=== PATIENT | female | born 1950 | race Caucasian/White ===

== ENCOUNTER 2019-09-10 14:30 | Outpatient (CLI) | payer MEDICARE, OTHER, SELFPAY ==
--- NOTE | 2019-09-10 14:48 | US_ITS ---
WS: [id number] Abdomen ultrasound, 09/10/2019 Clinical Data: RUQ ABD PAIN Comparison: None. Findings: The pancreas shows no cyst, pseudocyst or evidence of pancreatitis. The liver shows no cysts, masses or dilated intrahepatic ducts. There is fatty infiltration. The gallbladder is absent. The common bile duct is 0.33 cm and no intraductal abnormalities are noted . The right kidney is 4.43 x 5.43 x 11.27 cm. No cysts, masses or hydronephrosis is seen. The left kidney is 4.87 x 5.48 x 11.38 cm. There is a simple upper pole cyst measuring 1.45 x 1.46 x 1.52 cm The abdominal aorta is not dilated and the inferior vena cava has normal flow. No vascular ab normalities are seen. The spleen measures 4.95 x 5.28 x 10.55 cm and there are no intrasplenic masses are capsular abnormal ities. US/US abdomen complete* [id number] Impression: 1. Absent gallbladder. 2. Negative for acute intra-abdominal abnormalities.
== END 2019-09-10 14:31 | disposition home or self-care (01) ==
LOC: RAD 14:37
PROVIDERS: Family Provider Family Medicine; PCP Family Medicine; Visit Provider Family Medicine
DX: M25.532 Pain in left wrist (principal); M79.642 Pain in left hand
CPT/HCPCS: 76700

== ENCOUNTER → 2020-03-23 09:49 | Outpatient (BNVA) | payer MEDICARE, OTHER, SELFPAY | PROVIDERS: Family Provider Family Medicine; PCP Family Medicine; Visit Provider Nurse Practitioner Women's Health | DX: Z01.411 Encounter for gynecological examination (general) (routine) with abnormal findings (principal); N90.89 Other specified noninflammatory disorders of vulva and perineum; Q52.5 Fusion of labia | CPT/HCPCS: 88175 ==

== ENCOUNTER → 2020-03-29 13:37 | Outpatient (BNVA) | payer MEDICARE, OTHER, SELFPAY | PROVIDERS: Family Provider Family Medicine; PCP Family Medicine; Visit Provider Nurse Practitioner Women's Health | DX: N90.89 Other specified noninflammatory disorders of vulva and perineum (principal) | CPT/HCPCS: 88305 ==

== ENCOUNTER 2020-04-25 08:45 | Outpatient (CLI) | payer MEDICARE, OTHER, SELFPAY ==
--- NOTE | 2020-04-25 08:56 | MM_ITS ---
WS: [id number] SCREENING DIGITAL MAMMOGRAM WITH CAD HISTORY: SCREENING COMPARISON: 10/02/2017, 04/28/2017 and 04/10/2017 Bilateral CC and MLO views submitted. Computer aided detection analyzed. Breast composition: There are scattered areas of fibroglandular density. Increasing area of network solutions architect ural distortion and density upper outer quadrant of the LEFT breast at a middle depth. There has been asymmetry in this location but now the density has also increased and it appears slightly more disto rted. No interval change in the lateral RIGHT breast. MM/[place] [id number] IMPRESSION: BI-RADS: 0-Incomplete: Need additional imaging evaluation FOLLOW UP: Need Additional Imaging LEFT breast: Spot compression views (CC and MLO). True ML. Ultrasound to follow if abnormality persists.
== END 2020-04-25 08:46 | disposition home or self-care (01) ==
LOC: RADSHAW 08:50
PROVIDERS: PCP Family Medicine; Visit Provider Family Medicine
DX: Z12.31 Encounter for screening mammogram for malignant neoplasm of breast (principal); N64.89 Other specified disorders of breast
CPT/HCPCS: 77067

== ENCOUNTER → 2020-05-11 10:09 | Outpatient (BNVA) | payer MEDICARE, OTHER, SELFPAY | PROVIDERS: PCP Family Medicine; Referring Provider Dermatology; Visit Provider Dermatology | DX: L82.1 Other seborrheic keratosis (principal); D18.01 Hemangioma of skin and subcutaneous tissue; R20.2 Paresthesia of skin; D23.9 Other benign neoplasm of skin, unspecified; D18.00 Hemangioma unspecified site | CPT/HCPCS: 99203 ==

== ENCOUNTER 2020-06-26 07:57 | Outpatient (CLI) | payer MEDICARE, OTHER, SELFPAY ==
--- NOTE | 2020-06-26 08:06 | US_ITS ---
WS: [id number] ADDITIONAL VIEWS LEFT MAMMOGRAM LEFT BREAST ULTRASOUND HISTORY: ABNORMALITY/architectural DISTORTION COMPARISON: 04/25/2020, 04/10/2017 LEFT MAMMOGRAM: Spot compression views and true ML. Asymmetry nearly completely resolves on the LEFT CC projection laterally. No abnormality seen on the lateral projections. LEFT BREAST ULTRASOUND 2-D and color Doppler imaging submitted. Ultrasound is directed to the upper outer quadrant of the LEFT breast. There is no architectural dist ortion or mass identified. There are a few benign lymph nodes. US/US breast LT limited* [id number] IMPRESSION: BI-RADS: 2-Benign FOLLOW UP: 1 Year Follow-up
== END 2020-06-26 07:58 | disposition home or self-care (01) ==
LOC: RADSHAW 08:03
PROVIDERS: PCP Family Medicine; Visit Provider Family Medicine
DX: R92.8 Other abnormal and inconclusive findings on diagnostic imaging of breast (principal)
CPT/HCPCS: 76642; 77065

== ENCOUNTER → 2020-07-19 09:39 | Outpatient (BNVA) | payer MEDICARE, OTHER, SELFPAY | PROVIDERS: PCP Family Medicine; Visit Provider Family Medicine | DX: Z20.828 Contact with and (suspected) exposure to other viral communicable diseases (principal); Z01.812 Encounter for preprocedural laboratory examination | CPT/HCPCS: 87635 ==

== ENCOUNTER 2021-01-24 10:50 | Emergency (ER) | payer MEDICARE, OTHER, SELFPAY ==
--- NOTE | 2021-01-24 10:56 | ECG_ITS ---
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 Measurements Intervals [place] Rate: 67 P: 41 ID: 154 QRS: 15 QRSD: 70 T: 53 QT: 394 QTc: 417 Interpretive Statements SINUS RHYTHM LOW QRS VOLTAGE IN PRECORDIAL LEADS [QRS DEFLECTION < 1.0 mV IN CHEST LEADS] POSSIBLE ANTERIOR MYOCARDIAL INFARCTION [30 ms Q WAVE IN V3/V4, OR R < 0.2 mV IN V4], PROBABLY OLD Compared to ECG 09/16/2017 14:18:29 Low QRS voltage now present Myocardial infarct finding now present Sinus bradycardia no longer present Electronically Signed On 01-24-2021 17:36:44 CDT by Yandel Miller M.D. [id number]
--- NOTE | 2021-01-24 10:56 | XR_ITS ---
WS: [id number] Exam: XR chest 1V portable [id number] Date/Time of Exam: 01/24/2021 10:56 AM Reason For Exam: chest pain Comparison 09/16/2017. Findings: The lungs are clear and fully expanded. Costophrenic angles are sharp. No infiltrates. Bronchovascula r relief appears normal. Cardiac silhouette is unremarkable. Bony elements are intact. XR/XR chest 1V portable [id number] IMPRESSION: Unremarkable chest radiograph.
[2021-01-24 10:59] VITALS: BP 116/80; PULSE 72; RESP 18; TEMP 36.8; O2SAT 98; BMI 33.2
[2021-01-24 12:52] LABS: Basophils % 0.7 %; Eosinophils # 0.1 10^3/uL (0.0-0.8); Hematocrit 44.1 % (37.0-47.0); Hemoglobin 14.4 g/dL (11.5-15.3); Lymphocytes # 1.7 10^3/uL (0.8-4.8); Mean Corpuscular HGB Conc 32.7 g/dL (30.0-36.0); Mean Corpuscular Hemoglobin 29.9 pg (28.0-34.0); Mean Corpuscular Volume 91.5 fL (81-99); Mean Platelet Volume 8.8 fL (7.4-10.4); Monocytes # 0.3 10^3/uL (0.2-0.9); Monocytes % 5.5 %; Neutrophils # 3.21 10^3/uL (1.8-7.7); Neutrophils % 59.4 %; Nucleated Red Blood Cells % 0 %; Platelet Count 234 10^3/cmm (130-400); Red Blood Count 4.82 10^6/uL (4.1-5.3); Red Cell Distribution Width 12.4 % (12.1-15.1); White Blood Count 5.4 10^3/uL (4.0-10.0)
[2021-01-24 12:53] VITALS: BP 111/66; PULSE 84; RESP 18; O2SAT 98
--- NOTE | 2021-01-24 12:56 | ECG_ITS ---
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 Measurements Intervals [place] Rate: 63 P: 47 VA: 157 QRS: 37 QRSD: 81 T: 57 QT: 415 QTc: 428 Interpretive Statements SINUS RHYTHM LOW QRS VOLTAGE IN PRECORDIAL LEADS [QRS DEFLECTION < 1.0 mV IN CHEST LEADS] Compared to ECG 09/16/2017 14:18:29 Low QRS voltage now present Sinus bradycardia no longer present Electronically Signed On 01-24-2021 17:45:17 CDT by Yandel Miller M.D. [id number]
--- NOTE | 2021-01-24 12:57 | CT_ITS ---
WS: [id number] CT CHEST ANGIOGRAPHY WITH REFORMATS HISTORY: chest pressure, long distance travel, risk for PE TECHNIQUE: Contiguous axial images are obtained through the chest during arterial injection of intrav enous contrast. Images are reconstructed to evaluate the pulmonary arteries. MIP imaging also reviewe d. All CT scans at [facility] use at least one of these dose optimization techniques: aut omated exposure control; mA and/or kV adjustment per patient size (includes targeted exams where dose is matched to clinical indication); or iterative reconstruction. CONTRAST: Omnipaque 350; 95 mL IV. DLP: 579.34 mGy.cm COMPARISON: 06/24/2010 No pulmonary embolism. Mild atherosclerosis aorta. Mild enlargement of the LEFT heart chambers. No LE FT atrial appendage thrombus. No pericardial or pleural effusions. No pulmonary mass or pneumonia. No mediastinal or hilar adenopathy. Moderate-sized hiatal hernia. Prior cholecystectomy. CT/CT angio chest PE protcl [id number] IMPRESSION: 1. No pulmonary embolism. 2. Mild cardiomegaly. 3. No pneumonia.
--- NOTE | 2021-01-24 12:59 | W.ED.CHESTPA ---
HPI - Chest Pain General: Chief Complaint: Chest Pain Stated Complaint: chest pressure Time Seen by Provider: 01/24/21 12:27 Source: patient Mode of arrival: ambulatory Limitations: no limitations History of Present Illness: HPI narrative: This is a pleasant 70-year-old female patient with a history of hypertension who presents to the emergency department with chest pressure that started about 1 week ago. She went camping with her in an to [place] and while she was there she developed her symptoms. Chest pain is described as a pressure sensation and is in both sides of her chest and retrosternal. No nausea, no vomiting, no diaphoresis. No headaches or dizziness. No history of coronary artery disease or prior [place] but she has a significant family history. No prior history of PE or DVT. complaint: chest heaviness Onset (ago): week(s) (1) Timing of current episode: constant Onset: during rest Pain location: substernal, left chest and right chest Severity: moderate Quality: other (pressure) Relieving factors: nothing Exacerbating factors: nothing Context: recent travel Associated symptoms: Deny abdominal pain, diaphoresis, dyspnea, fever(s), leg edema, nausea, palpitations, sense of impending doom, syncope or vomiting Treatment prior to arrival: none Risk Factors: Coronary artery disease risk factors: hypertension Review of Systems General: Reports: 10 or more systems reviewed and unremarkable except in HPI and below Const: Denies: fever(s) or diaphoresis Card: Denies: palpitations or syncope Resp: Denies: dyspnea GI: Denies: abdominal pain, nausea or vomiting [facility] ED PFSH: Medical History Asthma History of shingles HTN (hypertension), benign Labia minora agglutination Lichen sclerosus Surgical History H/O lithotripsy H/O removal of cyst Cyst removal from LEFT AXILLA cyst removal from left hand H/O tubal ligation H/O: hysterectomy (2011) LAVH, OVARIES AND CERVIX SPARED-- WOOD History of breast lump/mass excision left- benign History of cholecystectomy History of tonsillectomy Family History Father Diabetes Heart disease Hypertension Stroke Brother Diabetes Heart disease Hypertension Stroke Mother Heart disease Hypertension Uterine cancer uterus dx at 88 y/o Breast cancer dx at 62 y/o Sister Heart disease Hypertension Colon cancer dx at 52 y/o Social History Additional social history: - Tobacco use: Denies Alcohol use: Social Drug use: Denies Physical Exam Const: COMMON NORMALS: no acute distress, average body habitus, patient oriented x3, no limitations, healthy appearing, alert and well nourished HENMT: COMMON NORMALS: normocephalic, atraumatic and moist oral mucous membranes HEAD & SCALP: normocephalic and atraumatic Neck/C-Spine: COMMON NORMALS: no meningeal signs and no JVD Resp: COMMON NORMALS: normal respiratory effort, No retractions, No use of accessory muscles, clear to auscultation bilaterally and percussion normal AUSCULTATION: clear to auscultation bilaterally PERCUSSION: percussion normal Cardio: COMMON NORMALS: no JVD, regular rate, regular rhythm, S1 normal heart sound present, S2 normal heart sound present, No gallops present (Cardio), No clicks present (Cardio), No murmurs present (Cardio), No rub (Cardio) and Peripheral pulses 2+ throughout RATE: regular rate RHYTHM: regular rhythm HEART SOUNDS: S1 normal heart sound present and S2 normal heart sound present PERIPHERAL PULSES: Peripheral pulses 2+ throughout GI: COMMON NORMALS: Normal to inspection, nondistended, normoactive bowel sounds present, Soft to palpation, non-tender, No hepatosplenomegaly present, no masses and no bruits PALPATION: Yes Soft to palpation and Yes No hepatosplenomegaly present Extremity: COMMON NORMALS: normal to inspection, full ROM, capillary refill normal, no calf tenderness and no pedal edema Neuro: COMMON NORMALS: patient oriented x3 SENSORIUM/ORIENTATION: Yes alert MENINGEAL SIGNS: Yes no meningeal signs Skin: COMMON NORMALS: no rashes or lesions noted, no wounds, turgor normal, no jaundice, no petechiae and no mottling GENERAL SKIN EXAM: no rashes or lesions noted and turgor normal Course Reevaluation(s): Reevaluation #1: Discussed her lab and imaging findings with her. Unremarkable. We will discharge her home with no new orders., We will schedule an outpatient stress test as she has not had one recently. She voiced understanding and is in agreement with the plan. Time: 15:29 Vital Signs: Vital signs: Vital Signs Temperature 98.2 F 01/24/21 10:59 Pulse Rate 87 01/24/21 14:48 Respiratory Rate 18 01/24/21 14:48 Blood Pressure 142/74 01/24/21 14:48 Pulse Oximetry 98 01/24/21 14:48 MDM - Chest Pain MDM Narrative: Medical decision making narrative: 70-year-old female patient who presents to the emergency department with a 1 week history of chest pain. Evaluation in the emergency department is unremarkable. She will be discharged home and an outpatient stress test is ordered. Because she had had long distance travel she was checked for a PE with CTA was negative. Medical Records: Attestation: I reviewed the patient's medical records. Lab Data: Attestation: I reviewed the patient's lab results. Labs: Lab Results 01/24/21 01/24/21 01/24/21 Range/Units 12:14 12:14 12:14 WBC 5.4 (4.0-10.0) 10^3/ uL RBC 4.82 (4.1-5.3) 10^6/u L Hgb 14.4 (11.5-15.3) g/dL Hct 44.1 (37.0-47.0) % MCV 91.5 (81-99) fL MCH 29.9 (28.0-34.0) pg MCHC 32.7 (30.0-36.0) g/dL RDW 12.4 (12.1-15.1) % Plt Count 234 (130-400) 10^3/c mm MPV 8.8 (7.4-10.4) fL Neut % (Auto) 59.4 % Lymph % (Auto) 32.0 % Phelps % (Auto) 5.5 % Eos % (Auto) 2.0 % Baso % (Auto) 0.7 % Neut # (Auto) 3.21 (1.8-7.7) 10^3/u L Lymph # (Auto) 1.7 (0.8-4.8) 10^3/u L Phelps # (Auto) 0.3 (0.2-0.9) 10^3/u L Eos # (Auto) 0.1 (0.0-0.8) 10^3/u L Baso # (Auto) 0.0 (0.0-0.1) 10^3/u L Nucleated RBC % (a uto) 0 % Nucleated RBCs # 0.0 /100WBC Sodium 139 (136-145) mmol/L Potassium 4.0 (3.5-5.1) mmol/L Chloride 101 (98-107) mmol/L Carbon Dioxide 27 (22-29) mmol/L Anion Gap 15.0 (5-19) BUN 20 (8-23) mg/dL Creatinine 0.5 (0.5-0.9) mg/dL GFR Calculation 122.7 (90-130) mL/min Glucose 88 (65-115) mg/dL Calculated Osmolal ity 290 (285-295) mOsm/k g Calcium 9.2 (8.5-10.5) mg/dL Total Bilirubin 0.6 (0.15-1.2) mg/dL AST 16 (0-32) U/L ALT 20 (0-33) U/L Alkaline Phosphata se 105 (35-105) IU/L Creatine Kinase (26-192) U/L Troponin T Baselin e 6 (0-10) ng/L Troponin T 120 Min nez perce (0-10) ng/L Delta Troponin T (0-10) ABS# Total Protein 6.4 L (6.6-8.7) g/dL Albumin 4.6 (3.5-5.2) g/dL Globulin 1.8 (1.3-4.6) g/dL TSH (0.27-4.20) uIU/ mL 01/24/21 01/24/21 Range/Units 12:14 13:56 WBC (4.0-10.0) 10^3/ uL RBC (4.1-5.3) 10^6/u L Hgb (11.5-15.3) g/dL Hct (37.0-47.0) % MCV (81-99) fL MCH (28.0-34.0) pg MCHC (30.0-36.0) g/dL RDW (12.1-15.1) % Plt Count (130-400) 10^3/c mm MPV (7.4-10.4) fL Neut % (Auto) % Lymph % (Auto) % Phelps % (Auto) % Eos % (Auto) % Baso % (Auto) % Neut # (Auto) (1.8-7.7) 10^3/u L Lymph # (Auto) (0.8-4.8) 10^3/u L Phelps # (Auto) (0.2-0.9) 10^3/u L Eos # (Auto) (0.0-0.8) 10^3/u L Baso # (Auto) (0.0-0.1) 10^3/u L Nucleated RBC % (a uto) % Nucleated RBCs # /100WBC Sodium (136-145) mmol/L Potassium (3.5-5.1) mmol/L Chloride (98-107) mmol/L Carbon Dioxide (22-29) mmol/L Anion Gap (5-19) BUN (8-23) mg/dL Creatinine (0.5-0.9) mg/dL GFR Calculation (90-130) mL/min Glucose (65-115) mg/dL Calculated Osmolal ity (285-295) mOsm/k g Calcium (8.5-10.5) mg/dL Total Bilirubin (0.15-1.2) mg/dL AST (0-32) U/L ALT (0-33) U/L Alkaline Phosphata se (35-105) IU/L Creatine Kinase 68 (26-192) U/L Troponin T Baselin e (0-10) ng/L Troponin T 120 Min nez perce 6.14 (0-10) ng/L Delta Troponin T 0.14 (0-10) ABS# Total Protein (6.6-8.7) g/dL Albumin (3.5-5.2) g/dL Globulin (1.3-4.6) g/dL TSH 2.43 (0.27-4.20) uIU/ mL Imaging Data^: CTA Chest: Attestation: I personally reviewed and interpreted this imaging study as follows: Radiologist's impression: [employer] [address] [address]II Scan ReportSigned Patient: Megan Love #: [id number]: 1950cct#:[id number]/Sex: 70 / FADM Date: 01/24/21Loc: ERRoom/Bed:Attending Dr: Ordering Provider/Ordering MD: Cheri Ross[place] [facility] [place] Service: 01/24/21 Procedure(s): CT angio chest PE protcl [id number] Accession Number(s): [id number] Report Number: [id number] WS: [id number] CT CHEST ANGIOGRAPHY WITH REFORMATS HISTORY: chest pressure, long distance travel, risk for PE TECHNIQUE: Contiguous axial images are obtained through the chest during arterial injection of intravenous contrast. Images are reconstructed to evaluate the pulmonary arteries. MIP imaging also reviewed. All CT scans at [facility] use at least one of these dose optimization techniques: automated exposure control; mA and/or kV adjustment per patient size (includes targeted exams where dose is matched to clinical indication); or iterative reconstruction. CONTRAST: Omnipaque 350; 95 mL IV. DLP: 579.34 mGy.cm COMPARISON: 06/24/2010 No pulmonary embolism. Mild atherosclerosis aorta. Mild enlargement of the LEFT heart chambers. No LEFT atrial appendage thrombus. No pericardial or pleural effusions. No pulmonary mass or pneumonia. No mediastinal or hilar adenopathy. Moderate-sized hiatal hernia. Prior cholecystectomy. CT/CT angio chest PE protcl [id number] IMPRESSION: 1. No pulmonary embolism. 2. Mild cardiomegaly. 3. No pneumonia. Dictated By:Krysta Barrientos DOSigned By:Krysta Barrientos DOSigned Date/Time:01/24/21 1451DD/ 1433 CXR: Attestation: I personally reviewed and interpreted this imaging study as follows: Radiologist's impression: [place] [address], [place] [address]DZrw ReportSigned Patient: Megan Love #: [id number]: 1950cct#:[id number]/Sex: 70 / FADM Date: 01/24/21Loc: ERRoom/Bed:Attending Dr: Ordering Provider/Ordering MD: Wendy Linares Date of Service: 01/24/21 Procedure(s): XR chest 1V portable [id number] Accession Number(s): [id number] Report Number: [id number] WS: [id number] Exam: XR chest 1V portable [id number] Date/Time of Exam: 01/24/2021 10:56 AM Reason For Exam: chest pain Comparison 09/16/2017. Findings: The lungs are clear and fully expanded. Costophrenic angles are sharp. No infiltrates. Bronchovascular relief appears normal. Cardiac silhouette is unremarkable. Bony elements are intact. XR/XR chest 1V portable [id number] IMPRESSION: Unremarkable chest radiograph. Dictated By:Graham Ennis, CORRINEigned By:Graham Ennis, CORRINEigned Date/Time:01/24/21 1132DD/ 1131 EKG Data^: EKG 1: Attestation: I personally reviewed and interpreted this EKG as follows: EKG interpretation date: 01/24/21 EKG interpretation time: 12:49 Prior EKG tracings: not available for review Interpretation: Sinus rhythm. Heart rate 63 bpm. Normal axis. No ST changes. Discharge Plan Discharge Patient Disposition: Home Clinical Impression: Chest pain, non-cardiac Condition: Stable Prescriptions: Continued albuterol sulfate [ProAir HFA] 90 mcg/actuation HFA aerosol inhaler 1 inh INHALATION QID PRN (Reason: Shortness Of Breath) RF: 0 loratadine [Claritin] 10 mg tablet 10 mg PO DAILY PRN (Reason: Allergy Symptoms) RF: 0 Galzin 50 mg (zinc) capsule 50 mg PO DAILY RF: 0 lisinopril-hydrochlorothiazide 10-12.5 mg tablet 1 tab PO DAILY RF: 0 Vitamin D3 1 tab PO DAILY RF: 0 vitamin A 1 tab PO DAILY RF: 0 Discharge Orders: Discharge ED (Routine); Ordered 01/24/21 Ordered By: Cheri Rossi Referrals: Rohan Syed DO [Primary Care Provider] - 1-3 days Discharge Diet: Usual diet Discharge Activity: Increase activity as tolerated Patient Instructions: Noncardiac Chest Pain (ED) Activity Restrictions/Additional Instructions: Return for any new or worsening symptoms. Follow-up with your primary care provider within 3 days. You will be contacted to schedule an outpatient stress test. Continue home medications. 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
[2021-01-24 13:17] LABS: Troponin(5th) Baseline 6 ng/L (0-10)
[2021-01-24 13:19] LABS: Alanine Aminotransferase 20 U/L (0-33); Albumin Level 4.6 g/dL (3.5-5.2); Alkaline Phosphatase 105 IU/L (35-105); Aspartate Amino Transferase 16 U/L (0-32); Blood Urea Nitrogen 20 mg/dL (8-23); Calcium 9.2 mg/dL (8.5-10.5); Carbon Dioxide 27 mmol/L (22-29); Chloride 101 mmol/L (98-107); Globulin 1.8 g/dL (1.3-4.6); Glomerular Filtration Rate 122.7 mL/min (90-130); Glucose 88 mg/dL (65-115); Osmolality Calculated 290 mOsm/kg (285-295); Sodium 139 mmol/L (136-145); Total Bilirubin 0.6 mg/dL (0.15-1.2); Total Protein 6.4 g/dL (6.6-8.7)
[2021-01-24 14:05] LABS: Creatine Phosphokinase 68 U/L (26-192); Thyroid Stimulating Hormone 2.43 uIU/mL (0.27-4.20)
[2021-01-24 14:28] LABS: Troponin 5 2HR 6.14 ng/L (0-10); Troponin 5 2HR Delta 0.14 ABS# (0-10)
[2021-01-24] MEDS: iohexol 350 mg/mL 100 mL Btl IV (14:31)
[2021-01-24 14:48] VITALS: BP 142/74; PULSE 87; RESP 18; O2SAT 98
--- NOTE | 2021-01-25 15:30 | DCPLANNER ---
sow farm manager had message to schedule an outpatient stress test for patient. sow farm manager faxed signed order to centralized scheduling. sow farm manager will call for appointment information.
--- NOTE | 2021-01-31 14:31 | DCPLANNER ---
Patient has a out patient stress test scheduled for Sunday, February 21, 2021 at 10:00.
--- NOTE | 2021-03-07 07:15 | DCPLANNER ---
Patient had a stress test scheduled for 02.21.21 - patient did attend appointment.
== END 2021-01-24 15:45 | disposition home or self-care (01) ==
PROVIDERS: Physician Assistant; Emergency Provider Family Medicine; PCP Family Medicine
DX: R07.89 Other chest pain (principal); I10 Essential (primary) hypertension
CPT/HCPCS: 71045; 71275; 80053; 82550; 84443; 84484; 85025; 93005; 99284; Q9967

== ENCOUNTER 2021-02-21 07:33 | Outpatient (CLI) | payer MEDICARE, OTHER, SELFPAY ==
--- NOTE | 2021-02-21 07:43 | ECG_ITS ---
[facility] Test Date: 2021-02-21 Pat Name: Megan Love Department: Room: Gender: Female River Rat: : 1950 Requested By: Rohan Fisher Order Number: [id number] Sierra MD: JIMENEZ RUVALCABA Interpretive Statements NAME OF STUDY: LEXISCAN SESTAMIBI STRESS TEST INDICATION: Chest Pain, NOTE: Please note that this is the electrocardiogram portion of the Lexiscan/Sestamibi stress test. The perfusion scan will be documented separately. DATA: Baseline heart rate was 68 beats per minute. Baseline blood pressure was 130/85 millimeters of mercury. Target heart rate was 152. Maximum heart rate achieved was 94. which was 61 % of the predicted target heart rate. Maximum blood pressure was 130/85 millimeters of mercury. The reason for ending the test was completion of the protocol. The patient did not experience any symptoms. ELECTROCARDIOGRAM: BASELINE: Sinus rhythm. Normal axis. Otherwise, no ST-T changes suggestive of ischemia noted. No arrhythmia noted. EXERCISE: After Lexiscan injection, no ST-T changes suggestive of ischemic noted. No arrhythmia noted. 1. EKG not suggestive of ischemia 2. Lexiscan injection unremarkable. 3. Perfusion scan will be documented separately. Electronically Signed On 02-21-2021 18:41:53 CDT by JIMENEZ RUVALCABA [id number]
--- NOTE | 2021-02-21 07:44 | NMCV_ITS ---
NM xiomara perf SPECT r/s* [id number] Megan Love Age: 70 Gender: F : 1950 Exam Date: 02/21/2021 08:54 Ordering Phys: Rohan Syed DO Technologist: BERTHA Martin Exam Location: [facility] Indications: CHEST PAIN STRESS TEST Please see separate stress test report in [facility] for full findings IMAGE PROTOCOL Rest/Stress 1 Lexiscan Day Radiopharmaceutical Dose (mCi) Administration Site Administered by Rest: Tc-99m 10.7 IV BERTHA Garrison Sestamibi Stress:Tc-99m 32.9 IV BERTHA Garrison Sestamibi Rest: 21-Feb-2021 60 Discovery 630 Stress: 21-Feb-2021 30 Discovery 630 0.4mg Lexiscan. Images obtained in supine and prone position. SPECT RESULTS Technical Quality: Good Raw Data Analysis: Breast attenuation Image Corrections: No attenuation or motion correction applied Summed Stress Score: 3 Summed Rest Score: 7 Summed Difference Score: 1 PERFUSION FINDINGS SPECT images demonstrate homogeneous tracer distribution throughout the myocardium. FUNCTIONAL RESULTS (calculated via Gated SPECT) Stress Image LV EF (%): 87 Stress EDV (mL):63 TID: 1.13 Stress ESV (mL):8 Rest Image LV EF (%): 87 FUNCTIONAL FINDINGS: There is normal left ventricular systolic function. IMPRESSIONS Myocardial perfusion imaging is normal. TID ratio elevated which could be secondary left ventricle hypertrophy/subendocardial ischemia. EKG segment will be documented separately. Sonia Guerrero MD (Electronically Signed) Final Date: 21 February 2021 18:29 S
[2021-02-21 08:06] VITALS: BMI 34.1
[2021-02-21] MEDS: regadenoson 0.4 Mg/5 ml Syringe IVP (09:21)
[2021-02-21] MEDS: ondansetron 2 mg/ML SDV 2 mL 4 MG IVP (09:32)
[2021-02-21 09:41] VITALS: BP 128/75; PULSE 82
== END 2021-02-21 07:34 | disposition home or self-care (01) ==
LOC: CDL 07:39
PROVIDERS: PCP Family Medicine; Visit Provider Family Medicine
DX: R07.9 Chest pain, unspecified (principal)
CPT/HCPCS: 78452; 93017; A9500; J2405; J2785

== ENCOUNTER → 2021-04-02 08:50 | Outpatient (BNVA) | payer MEDICARE, OTHER, SELFPAY | PROVIDERS: PCP Family Medicine; Visit Provider Internal Medicine Cardiovascular Disease | DX: Z01.812 Encounter for preprocedural laboratory examination (principal); Z20.822 Contact with and (suspected) exposure to COVID-19 | CPT/HCPCS: 80048; 83880; 85025; 85610; 87635 ==

== ENCOUNTER 2021-04-05 07:46 | Day surgery (SDC) | payer MEDICARE, OTHER, SELFPAY ==
[2021-04-05] VITALS (13 sets, daily range): BP systolic 93–118; BP diastolic 59–86; PULSE 57–85; RESP 15–20; TEMP 36.4; O2SAT 93–99; BMI 34.4
--- NOTE | 2021-04-05 07:30 | XACV_ITS ---
Ht: 170 cm Wt: 100 kg BSA: 2.21 m2 Gender: Female : 1950 Any Known Allergies: Other Exam Priority: Routine Indication(s): - Elevated TID ration by MPI - Chest pain Procedure(s): Procedure Description: Diagnostic procedure Procedure Description: Left Heart Catheterization Procedure Description: Left ventriculography Procedure Description: Coronary Angiography Diagnostic Cath Status: Elective Diagnostic Findings * No disease noted in the Left Main, Left Anterior Descending, Right, or Circumflex coronary arteries. * Coronary angiography shows right dominance. Conclusions 1. No disease noted in the Left Main, Left Anterior Descending, Right, or Circumflex coronary arteries. 2. All layton are normal. 3. Hyperdynamic left ventricular systolic function. Ejection fraction of 70%. Recommendations * Continue current medical management and risk factor modification. Diagnostic RX Recommendation: medical therapy and/or counseling LV EDP: 14 mmHg Ventriculography Ejection Fraction: 70.0 % Left Ventriculography Findings: * Hyperdynamic left ventricle ejection fraction 70%. Pressures Phase:Rest AO : 128 / 23 ( 66 ) @ 8:56:00 AM 104 / 58 ( 81 ) @ 8:56:00 AM LV : 135 / -6 / 14 @ 8:55:00 AM 135 / -3 / 16 @ 8:56:00 AM Clinical Evaluation EBL: 5mL-10mL Procedural Details Procedure Consent Obtained. Admit Source: Out Patient. Pre-Procedure Time Out. Identified patient by full name and date of as verbalized by the patient/guarantor. Does the consent match the physician's order: Yes. Accurate & Complete Informed Consent: Yes. Inpatient/Outpatient History & Physical on Chart: Yes. If H&P is completed, is and addenduem needed: No; If yes, is the addendum complete: N/A. Visualize and Verify Site with Patient/Guarantor: N/A. Relevant Radiology Images available: N/A. Pre-op teaching completed and patient verbalized understanding. The risks, benefits, and alternatives of sedation and/or procedure were discussed by physician. The patient agrees to continue. Procedure started. [facility] Clinical Fraility Score: 3: Managing Well. Spinner Open End Indications: New Onset Angina. Chest Pain Symptom Assessment: Atypical Angina. Cardiovascular Instability: No. Correct patient, site and procedure confirmed by cath team. Current diagnosis: Stable angina. PERRLA. Strong, equal hand power tool repairer bilaterally. Lungs clear x 5 lobes. IV Site on Arrival: 20 gauge in the left anticubital. IV Fluids: 0.9% NaCl at KVO. 0 mL infused prior to laborer/grade check. Pre Procedural Pulses: bilateral radial was 3+. Pre Procedural Pulses: bilateral posterior tibial was 3+. Pre Procedural Pulses: bilateral dorsalis pedis was 3+. Oxygen started at 3liters/min via nasal canula. right radial was prepped with chloroprep then draped in the usual sterile fashion. right groin was prepped with chloroprep then draped in the usual sterile fashion. Physician notified. Current Diagnosis : Stable angina. Baseline sample Acquired. HR: 69 BPM. Baseline sample Acquired. HR: 70 BPM. Physician arrived. Equipment: 6F - Radial. Equipment: 5F - Radial. Cardiac Cath Pack. ACIST Manifold Kit Model BT 2000. Heparinized Saline (2 units/mL), 1000 mL bag. Physician scrubbed in. Immediate Pre-Procedure Time Out. Correct Patient: Yes; Correct Procedure: Yes; Correct Site: Yes; Correct Patient Position: Yes; Correct Supplies: Yes; Dried Flammable Prep: Yes; Blood Products Available: N/A;. Patient's family updated. Lidocaine 1% infiltrated to the right radial. Arterial access obtained. A 5 kazakh TIG catheter in over wire. Unable to cannulate with TIG catheter. Removed over the exchange wire. A 5 kazakh Ricardo catheter in over wire. Catheter seated in the LCS. Multiple views taken of left coronary artery. Catheter redirected to the RCA. Unable to cannulate the RCA. Catheter removed over the exchange wire. A CRD 5F JR4 Diagnostic Catheter was advanced over the wire and used for right coronary angiography. Catheter seated in the RCA. Multiple views taken of right coronary artery. Catheter removed over the exchange wire. A CRD 5F 145 Angled Pig Diagnostic Catheter was advanced over the wire and used for Ventriculography. EDP Sample taken: LV 135/-7,14; HR: 77 BPM; SpO2: 100%. LV gram performed in PACE @ 10 mL/second for a total of 30 mL. Patient EF: Normal. EDP Sample taken: LV 135/-4,16; HR: 77 BPM; SpO2: 100%. Pullback taken: LV Off; AO Off; Mean: , Peak to Peak: , SEP: ; HR: 78 BPM; SpO2: 100%. Catheter removed over the exchange wire. Physician review of cine films. Physician scrubbed out. A TR Band was successful obtaining hemostatsis at the Right Radial artery insertion site. TR band placed. Hemostasis obtained. Post Procedure: Pulses reassessed and unchanged. PERRLA. Strong, equal hand power tool repairer bilaterally. No VTE prophylaxis required. Medication's Wasted: Lidocaine 1% = 14 ml. Medication's Wasted: Nitro = 49.8 mg. Medication's Wasted: Heparin = 1000 units. Total IV fluids: 41 mL. Fluoro: 7:02. Contrast type used: Omnipaque 300 mgI/mL, 500 mL bottle. [id number] ml. Post-op diagnosis: Nonobstuctive CAD. Complications: NONE. Estimated blood loss: 5mL-10mL. Procedure completed. Patient transferred by wheelchair to CPRU. Vital chart was stopped. Access Site Site: Right Radial artery Sheath Size: 6 Fr Hemostasis Method: TR Band Hemostasis Success: Successful Procedure Medications Start: 9:21 AM Stop: 9:21 AM Medication: Versed Amount: 1 mg Route: I.V. Start: 9:21 AM Stop: 9:21 AM Medication: Fentanyl Amount: 50 mcg Route: I.V. Start: 9:30 AM Stop: 9:30 AM Medication: Versed Amount: 1 mg Route: I.V. Start: 9:30 AM Stop: 9:30 AM Medication: Fentanyl Amount: 50 mcg Route: I.V. Start: 9:34 AM Stop: 9:34 AM Medication: Versed Amount: 1 mg Route: I.V. Start: 9:39 AM Stop: 9:39 AM Medication: Heparin Amount: 5000 units Route: I.V. Start: 9:36 AM Stop: 9:36 AM Medication: Nitrogylcerin Amount: 200 mcg Route: I.A. Start: 9:40 AM Stop: 9:40 AM Medication: Versed Amount: 1 mg Route: I.V. I, the attending physician, have reviewed and verified all procedure medications. Yes, all medications given per verbal order History/Risk Factors Hypertension: Yes Dyslipidemia: No Peripheral Arterial Disease (PAD): No Myocardial Infarction (VT): No Obesity: Yes Renal Disease: No Tobacco Use: Never Prior Interventions PCI: No CABG: No Valve Surgery: No Report Signatures Finalized by Sonia Guerrero MD on 04/18/2021 09:49 PM
[2021-04-05] MEDS: diphenhydrAMINE 50 mg Capsule PO (08:30)
--- NOTE | 2021-04-05 09:27 | W.PM.OPSUD ---
Surgery/Procedure H&P Update DATE OF PROCEDURE: April 05, 2021 DATE H&P PERFORMED: 03/14/21 H&P UPDATE INFORMATION: I have reviewed H&P completed within last 30 days, I have examined patient prior to procedure and No changes to prior documentation PREOP DIAGNOSIS: Angina PLANNED PROCEDURE: Operation Date: 04/05/21 08:30 Proposed Procedures p Cardiac Catheterization(Left) - Sonia Guerrero MD PATIENT REASSESSED PRIOR TO SEDATION, WITH NO CHANGE NOTED: Yes PHYSICAL EXAM: alert, oriented x 3 and clear to auscultation bilaterally AIRWAY EVAL/ANESTHESIA PLAN: ASA II, Risks, benefits & alternatives of sedation and/or procedure discussed and Patient agrees to continue as planned
--- NOTE | 2021-04-05 10:15 | PC.NURSE ---
recovery received pt from laborer post diangostic [facility]. pt alert and oriented x3. complains of only numbness in right thumb, no pain. tr band in place on right wrist with no bleeding or hematoma noted. pt educated on restriction of right wrist and has verbalized understanding. pt placed on heart monitor and will be monitored per protocol. cardiac diet placed and dietary has been called to confirm order.
== END 2021-04-05 13:15 | disposition home or self-care (01) ==
PROVIDERS: PCP Family Medicine; Visit Provider Internal Medicine Cardiovascular Disease
DX: R07.89 Other chest pain (principal); I10 Essential (primary) hypertension; Z82.49 Family history of ischemic heart disease and other diseases of the circulatory system; J45.909 Unspecified asthma, uncomplicated; Z83.3 Family history of diabetes mellitus; Z82.3 Family history of stroke
CPT/HCPCS: 36415; 93452; C1769; C1887; C1894; J1644; J2250; J3010; J3490; J7030; Q0163; Q9967

== ENCOUNTER 2021-09-07 08:07 | Outpatient (CLI) | payer MEDICARE, OTHER, SELFPAY ==
[2021-09-07 08:23] VITALS: BP 134/93; PULSE 90; RESP 16; TEMP 36.8; O2SAT 95
[2021-09-07 09:00] VITALS: BP 152/89; PULSE 91; RESP 16; TEMP 36.6; O2SAT 92
[2021-09-07 10:00] VITALS: BP 152/89; PULSE 91; RESP 16; TEMP 36.1; O2SAT 93
--- NOTE | 2021-09-07 13:52 | PC.NURSE ---
VITALS CHARTED BY CHICHO KONG RN. CARE PROVIDED BY LIZ DUPREE AND JACOBO MCCABE.
== END 2021-09-07 08:08 | disposition home or self-care (01) ==
LOC: OPS 08:11
PROVIDERS: PCP Family Medicine; Visit Provider Family Medicine
DX: U07.1 COVID-19 (principal)
CPT/HCPCS: 96365

== ENCOUNTER → 2022-02-26 11:22 | Outpatient (BNVA) | payer MEDICARE, OTHER, SELFPAY | PROVIDERS: PCP Family Medicine; Visit Provider Family Medicine | DX: G47.33 Obstructive sleep apnea (adult) (pediatric) (principal); R53.83 Other fatigue; E66.9 Obesity, unspecified; Z92.29 Personal history of other drug therapy; E78.1 Pure hyperglyceridemia; R35.0 Frequency of micturition | CPT/HCPCS: 80053; 80061; 81000; 82607; 83036; 84443; 85025; 87086 ==

== ENCOUNTER 2022-03-18 09:30 | Outpatient (CLI) | payer MEDICARE, OTHER, SELFPAY | END 2022-03-18 09:31 | disposition home or self-care (01) | LOC: SLEEP 03-19 12:28 | PROVIDERS: PCP Family Medicine; Visit Provider Family Medicine | DX: G47.33 Obstructive sleep apnea (adult) (pediatric) (principal) | CPT/HCPCS: G0399 ==

== ENCOUNTER 2022-03-20 08:11 | Emergency (ER) | payer MEDICARE, OTHER, SELFPAY ==
[2022-03-20 08:36] VITALS: BP 133/89; PULSE 94; RESP 18; TEMP 37.7; O2SAT 94; BMI 32.1
--- NOTE | 2022-03-20 08:48 | CT_ITS ---
WS: [id number] CT ABDOMEN PELVIS TECHNIQUE: Contrast-enhanced CT of the abdomen and pelvis with coronal and sagittal reformatted image s. CLINICAL INFORMATION: abd pain COMPARISON: CT abdomen pelvis June 2010 DLP: 1445.[address] scans at [facility] use at least one of these dose optimization techniques: automated e xposure control; mA and/or kV adjustment per patient size (includes targeted exams where dose is matc hed to clinical indication); or iterative reconstruction. FINDINGS: Lung bases are well aerated. Mild diffuse fatty infiltration of the liver. Normal portal vein and splenic vein. Normal spleen. A f ew incidental hepatic cysts. Cholecystectomy. Small esophageal hiatal hernia. Adrenal glands are norm al. Normal renal parenchymal enhancement. No hydronephrosis. Incidental renal cysts. Normal pancreas. Celiac and SMA are patent. Normal caliber abdominal aorta. Normal sigmoid colon. Colon is decompressed. Normal appendix in the RIGHT lower quadrant. No evidence of acute appendicitis. No evidence of small or large bowel obstruction. No free fluid in the abdomen or pelvis. CT/CT abdomen pelvis w con* [id number] IMPRESSION: 1. No acute findings in the abdomen or pelvis. 2. Prior cholecystectomy. 3. Mild diffuse fatty infiltration liver. 4. A few incidental hepatic cysts. Incidental renal cysts. 5. Normal appendix. 6. Small esophageal hiatal hernia
--- NOTE | 2022-03-20 08:50 | ECG_ITS ---
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 Measurements Intervals [place] Rate: 81 P: 25 SC: 150 QRS: -24 QRSD: 80 T: 62 QT: 367 QTc: 428 Interpretive Statements SINUS RHYTHM POSSIBLE LEFT ATRIAL ENLARGEMENT [-0.1mV P-WAVE IN V1/V2] LOW QRS VOLTAGE IN PRECORDIAL LEADS [QRS DEFLECTION < 1.0 mV IN CHEST LEADS] POSSIBLE ANTERIOR MYOCARDIAL INFARCTION , PROBABLY OLD [30 ms Q WAVE IN V3/V4, OR R < 0.2 mV IN V4] Compared to ECG 01/24/2021 12:49:37 Myocardial infarct finding now present Electronically Signed On 03-20-2022 16:29:23 CDT by Yandel Miller M.D. [id number]
[2022-03-20] MEDS: ondansetron 2 mg/ML SDV 2 mL 4 MG IVP (09:14)
[2022-03-20 09:15] VITALS: RESP 18; O2SAT 93
[2022-03-20] MEDS: morphine 4 mg/mL SDV 1 mL IVP (09:15)
[2022-03-20 09:20] LABS: Basophils % 0.8 %; Hematocrit 45.2 % (37.0-47.0); Hemoglobin 15.3 g/dL (11.5-15.3); Lymphocytes # 0.4 10^3/uL (0.8-4.8); Lymphocytes % 10.6 %; Mean Corpuscular HGB Conc 33.8 g/dL (30.0-36.0); Mean Corpuscular Hemoglobin 29.9 pg (28.0-34.0); Mean Corpuscular Volume 88.3 fl (81-99); Mean Platelet Volume 8.6 fL (7.4-10.4); Monocytes # 0.2 10^3/uL (0.2-0.9); Monocytes % 5.9 %; Neutrophils % 81.3 %; Nucleated Red Blood Cells % 0 %; Platelet Count 100 10^3/cmm (130-400); Red Blood Count 5.12 10^6/uL (4.1-5.3); Red Cell Distribution Width 12.6 % (12.1-15.1); White Blood Count 3.6 10^3/uL (4.0-10.0)
[2022-03-20] MEDS: sodium chloride 0.9% 1,000 ML 999 ML IV (09:23)
--- NOTE | 2022-03-20 09:23 | ED_ITS ---
HPI - Abdominal Pain General: Chief Complaint: Abdominal Pain Stated Complaint: FEVER/ NAUSEA/ ABDOMINAL BACK PAIN Time Seen by Provider: 03/20/22 08:12 Source: patient Mode of arrival: EMS Limitations: no limitations History of Present Illness: 71-year-old female presents emergency room with complaints of headache back pain abdominal pain for the last 3 days. She has had a low-grade subjective fever.'s been very nauseous but not actually vomited no diarrhea. She has had some cough as well cough is been nonproductive no chest pain. No dysuria urgency or frequency no hematochezia or melena no he maturia. Abdominal pain is diffuse she is unable to localize it. It does seem to radiate into her back. MD elicited complaint: abdominal pain Onset (ago): day(s) (3) Pain Consistency: constant Location: Diffuse Severity: moderate Quality: cramping Radiation: back Exacerbating factors: other (Palpation) Relieving factors: nothing Associated Symptoms: Reports GI cramping, dyspepsia, nausea and poor appetite; Denies anorexia, belching, bloating, change in bowel habits, change in stool character, chills, coffee ground emesis, constipation, diarrhea, dysuria, excessive flatus, fever(s), heartburn, hematochezia, hematuria, hematemesis, fecal incontinence, loose stools, melena, syncope and vomiting Review of Systems Const: Denies: fever(s), chills, fatigue or malaise ENMT: Denies: throat pain, ear or mastoid pain, nasal discharge or nasal congestion Card: Denies: chest pain, palpitations, irregular heart rhythm, edema or syncope Resp: Denies: dyspnea, productive cough or non-productive cough GI: Reports: abdominal pain, nausea and GI cramping; Denies: vomiting, hematemesis, coffee ground emesis, heartburn, diarrhea, constipation, bloating, belching, excessive flatus, fecal incontinence, change in bowel habits, change in stool character, hematochezia or melena : Denies: flank pain, difficulty voiding, dysuria, urinary frequency, urinary urgency or hematuria Musc: Denies: neck pain or back pain Skin/Breast: Denies: rash or pruritus Neuro: Reports: headache(s) PFSH ED PFSH: Medical History Asthma Family history of ischemic heart disease and other diseases of the circulatory system History of shingles HTN (hypertension), benign Labia minora agglutination Lichen sclerosus No pertinent past medical history neghx: dm,thyroid,dvt/pe PCP: Dr. De La Torre Urgency incontinence Surgical History H/O lithotripsy H/O removal of cyst Cyst removal from LEFT AXILLA cyst removal from left hand H/O tubal ligation H/O: hysterectomy (2011) LAVH, OVARIES AND CERVIX SPARED-- WOOD History of breast lump/mass excision left- benign History of cholecystectomy History of tonsillectomy Family History Father Diabetes Heart disease Hypertension Stroke Brother Diabetes Heart disease Hypertension Stroke Mother Heart disease Hypertension Uterine cancer uterus dx at 88 y/o Breast cancer dx at 62 y/o Sister Heart disease Hypertension Colon cancer dx at 52 y/o Physical Exam Const: COMMON NORMALS: no acute distress GENERAL APPEARANCE: cooperative and comfortable ORIENTATION/CONSCIOUSNESS: Yes awake, Yes oriented to person, Yes oriented to place and Yes oriented to time HENMT: COMMON NORMALS: normocephalic, atraumatic and hearing grossly normal bilaterally HEAD & SCALP: normocephalic and atraumatic Neck/C-Spine: COMMON NORMALS: no JVD Resp: COMMON NORMALS: normal respiratory effort, No retractions, No use of accessory muscles and clear to auscultation bilaterally AUSCULTATION: clear to auscultation bilaterally Cardio: COMMON NORMALS: no JVD, regular rate, regular rhythm and No murmurs present (Cardio) RATE: regular rate RHYTHM: regular rhythm GI: COMMON NORMALS: No hepatosplenomegaly present AUSCULTATION: Yes normoactive bowel sounds PALPATION: Yes Tenderness to palpation present (GI) (Diffuse tenderness), No Guarding due to palpation present (GI) and Yes No hepatosplenomegaly present Extremity: COMMON NORMALS: normal to inspection, capillary refill normal, no clubbing, cyanosis or edema, no calf tenderness and no pedal edema Neuro: SENSORIUM/ORIENTATION: Yes oriented to person, Yes oriented to place and Yes oriented to time Skin: COMMON NORMALS: no rashes or lesions noted GENERAL SKIN EXAM: no rashes or lesions noted Course Vital Signs: Vital signs: Vital Signs Temperature 99.9 F H 03/20/22 08:36 Pulse Rate 73 03/20/22 12:59 Respiratory Rate 18 03/20/22 12:59 Blood Pressure 106/61 03/20/22 12:59 Pulse Oximetry 94 03/20/22 12:59 MDM - Abdominal Pain Medical Decision Making Labs and imaging are reviewed. No specific abnormalities on his CT appendix is normal is a few incidental hepatic cyst but otherwise unremarkable. No other findings we will check her for COVID. She is mildly hyponatremic but only minimally so. Not enough to account for her current symptoms. Push fluids. Suspect she may either have COVID or some other viral prodrome. Medical Records I reviewed the patient's medical records. Lab Data I reviewed the patient's lab results. : 03/20/22 09:02 03/20/22 09:02 Labs/Radiology: Radiology Impressions Abdomen/Pelvis CT 03/20/22 08:48 IMPRESSION: 1. No acute findings in the abdomen or pelvis. 2. Prior cholecystectomy. 3. Mild diffuse fatty infiltration liver. 4. A few incidental hepatic cysts. Incidental renal cysts. 5. Normal appendix. 6. Small esophageal hiatal hernia Laboratory Results WBC 3.6 10^3/uL (4.0-10.0) L 03/20/22 09:02 RBC 5.12 10^6/uL (4.1-5.3) 03/20/22 09:02 Hgb 15.3 g/dL (11.5-15.3) 03/20/22 09:02 Hct 45.2 % (37.0-47.0) 03/20/22 09:02 MCV 88.3 fl (81-99) 03/20/22 09:02 MCH 29.9 pg (28.0-34.0) 03/20/22 09:02 MCHC 33.8 g/dL (30.0-36.0) 03/20/22 09:02 RDW 12.6 % (12.1-15.1) 03/20/22 09:02 Plt Count 100 10^3/cmm (130-400) L 03/20/22 09:02 MPV 8.6 fL (7.4-10.4) 03/20/22 09:02 Neut % (Auto) 81.3 % 03/20/22 09:02 Lymph % (Auto) 10.6 % 03/20/22 09:02 [place] % (Auto) 5.9 % 03/20/22 09:02 Eos % (Auto) 0.0 % 03/20/22 09:02 Baso % (Auto) 0.8 % 03/20/22 09:02 Neut # (Auto) 2.90 10^3/uL (1.8-7.7) 03/20/22 09:02 Lymph # (Auto) 0.4 10^3/uL (0.8-4.8) L 03/20/22 09:02 [place] # (Auto) 0.2 10^3/uL (0.2-0.9) 03/20/22 09:02 Eos # (Auto) 0.0 10^3/uL (0.0-0.8) 03/20/22 09:02 Baso # (Auto) 0.0 10^3/uL (0.0-0.1) 03/20/22 09:02 Nucleated RBC % (auto) 0 % 03/20/22 09:02 Nucleated RBCs # 0.0 /100WBC 03/20/22 09:02 Sodium 129 mmol/L (136-145) L 03/20/22 09:02 Potassium 4.0 mmol/L (3.5-5.1) 03/20/22 09:02 Chloride 95 mmol/L (98-107) L 03/20/22 09:02 Carbon Dioxide 25 mmol/L (22-29) 03/20/22 09:02 Anion Gap 13.0 (5-19) 03/20/22 09:02 BUN 13 mg/dL (8-23) 03/20/22 09:02 Creatinine 0.8 mg/dL (0.5-0.9) 03/20/22 09:02 GFR Calculation 71.1 mL/min (90-130) L 03/20/22 09:02 Glucose 119 mg/dL (65-115) H 03/20/22 09:02 Calculated Osmolality 269 mOsm/kg (285-295) L 03/20/22 09:02 Lactic Acid 1.0 mmol/L (0.5-2.2) 03/20/22 09:02 Calcium 9.2 mg/dL (8.5-10.5) 03/20/22 09:02 Total Bilirubin 0.7 mg/dL (0.15-1.2) 03/20/22 09:02 AST 42 U/L (0-32) H 03/20/22 09:02 ALT 37 U/L (0-33) H 03/20/22 09:02 Alkaline Phosphatase 113 IU/L (35-105) H 03/20/22 09:02 Creatine Kinase 67 U/L (26-192) 03/20/22 09:02 Total Protein 6.6 g/dL (6.6-8.7) 03/20/22 09:02 Albumin 4.0 g/dL (3.5-5.2) 03/20/22 09:02 Globulin 2.6 g/dL (1.3-4.6) 03/20/22 09:02 Lipase 24 U/L (13-60) 03/20/22 09:02 Urine Color Yellow (Yellow) 03/20/22 09:55 Urine Appearance Clear (CLEAR) 03/20/22 09:55 Urine pH 6.5 (5-7) 03/20/22 09:55 Ur Specific Sigurd 1.010 (1.005-1.030) 03/20/22 09:55 Urine Protein Neg (Negative) 03/20/22 09:55 Urine Glucose (UA) Norm (Normal) 03/20/22 09:55 Urine Ketones Negative (Negative) 03/20/22 09:55 Urine Blood Neg (Negative) 03/20/22 09:55 Urine Nitrate Negative (Negative) 03/20/22 09:55 Urine Bilirubin Neg (Negative) 03/20/22 09:55 Urine Urobilinogen 4 mg/dL (Negative) H 03/20/22 09:55 Ur Leukocyte Esterase 1+ (Negative) H 03/20/22 09:55 Urine RBC 0-4 /hpf (0-2) H 03/20/22 09:55 Urine WBC 10-15 /hpf (0-5) H 03/20/22 09:55 Ur Squamous Epith Cells 10-15 /hpf (0-5) H 03/20/22 09:55 Amorphous Sediment Not Reportable 03/20/22 09:55 Urine Bacteria None /hpf (NONE) 03/20/22 09:55 Coronavirus 229E (PCR) Cancelled 03/20/22 11:30 SARS-CoV-2 (PCR) Cancelled 03/20/22 11:30 SARS-CoV-2 RNA (RT-PCR) Not detected (NOT DETECTED) 03/20/22 11:30 Discharge Plan Discharge Patient Disposition: Home Clinical Impression: Viral infection, Gastroenteritis Condition: Stable Prescriptions: New promethazine 25 mg tablet 25 mg PO Q6H PRN (Reason: nausea and vomiting) Qty: 20 0RF No Action albuterol sulfate [ProAir HFA] 90 mcg/actuation HFA aerosol inhaler 1 inh INHALATION QID PRN (Reason: Shortness Of Breath) 0RF Galzin 25 mg (zinc) capsule 25 mg PO DAILY 0RF vitamin B complex [B Complex-Vitamin B12] Tablet 1 tab PO DAILY 0RF acyclovir 800 mg tablet 800 mg PO DAILY PRN0RF hydrochlorothiazide 12.5 mg tablet 12.5 mg PO DAILY PRN (Reason: edema) Qty: 30 2RF clobetasol 0.05 % ointment 1 applic topical BID PRN (Reason: lichen sclerosis ) Qty: 30 1RF Rx Instructions: USE DIRECTED lisinopril-hydrochlorothiazide 10-12.5 mg tablet 1 tab PO DAILY 0RF Vitamin D3 1 tab PO DAILY 0RF cephalexin 500 mg capsule 500 mg PO QID 7 Days Qty: 28 0RF Reglan 10 mg tablet 10 mg PO Q6H PRN (Reason: nausea and vomiting) Qty: 20 0RF Discharge Orders: Discharge ED (Routine); Ordered 03/20/22 Ordered By: Terrell Cardona Referrals: Rohan Syed DO [Primary Care Provider] - Discharge Diet: Clear Liquid Discharge Activity: Increase activity as tolerated Patient Instructions: Opioid Safety Activity Restrictions/Additional Instructions: Clear liquid diet for 24 to 48 hours and advance as tolerated. Use promethazine as needed symptoms worsen or change return. Coding Level of Care Code ED Electrical Engineering Professor for Héctor Fwmarcos Exam Comprehensive
[2022-03-20 09:53] LABS: Alanine Aminotransferase 37 U/L (0-33); Alkaline Phosphatase 113 IU/L (35-105); Aspartate Amino Transferase 42 U/L (0-32); Blood Urea Nitrogen 13 mg/dL (8-23); Calcium 9.2 mg/dL (8.5-10.5); Carbon Dioxide 25 mmol/L (22-29); Chloride 95 mmol/L (98-107); Creatine Phosphokinase 67 U/L (26-192); Globulin 2.6 g/dL (1.3-4.6); Glomerular Filtration Rate 71.1 mL/min (90-130); Glucose 119 mg/dL (65-115); Lipase 24 U/L (13-60); Osmolality Calculated 269 mOsm/kg (285-295); Sodium 129 mmol/L (136-145); Total Bilirubin 0.7 mg/dL (0.15-1.2); Total Protein 6.6 g/dL (6.6-8.7)
[2022-03-20] MEDS: iohexol 300 mg/mL 100 mL Btl IV (10:04)
[2022-03-20 10:17] LABS: Add Urine Microscopic? YES; Bilirubin Urine Neg (Negative); Blood Urine Neg (Negative); Glucose Urine UA Norm (Normal); Ketones Urine Negative (Negative); Leukocyte Esterase Urine 1+ (Negative); Nitrate Urine Negative (Negative); Protein Urine Neg (Negative); RBC Urine 0-4 /hpf (0-2); Urine Appearance Clear (CLEAR); Urine Color Yellow (Yellow); Urobilinogen Urine 4 mg/dL (Negative); pH Urine 6.5 (5-7)
[2022-03-20 10:18] LABS: Add Urine Culture? No
[2022-03-20] MEDS: promethazine 25 mg/mL SDV 1 mL IM (11:20)
[2022-03-20] MEDS: ketorolac 30 mg/mL INJ 15 MG IVP (11:21)
[2022-03-20 11:46] VITALS: BP 107/59; PULSE 76; O2SAT 92
[2022-03-20 12:58] VITALS: BP 106/61; PULSE 73; O2SAT 94
[2022-03-20 12:59] VITALS: BP 106/61; PULSE 73; RESP 18; O2SAT 94
[2022-03-21 13:58] LABS: Quest SARS-CoV-2 RNA NOT DETECTED (NOT DETECTED)
== END 2022-03-20 13:01 | disposition home or self-care (01) ==
PROVIDERS: Emergency Provider Family Medicine; PCP Family Medicine
DX: K52.9 Noninfective gastroenteritis and colitis, unspecified (principal); B34.9 Viral infection, unspecified; I10 Essential (primary) hypertension; Z20.822 Contact with and (suspected) exposure to COVID-19
CPT/HCPCS: 36415; 74177; 80053; 81001; 82550; 83605; 83690; 85025; 87040; 87635; 93005; 96372; 96374; 96375; 99285; J1885; J2270; J2405; J2550; J7030; Q9967

== ENCOUNTER 2022-03-25 19:46 | Emergency (ER) | payer MEDICARE, OTHER, SELFPAY ==
--- NOTE | 2022-03-25 20:06 | CTR_ITS ---
PROCEDURE INFORMATION: Exam: CTA Head With Contrast, Arteries Exam date and time: 03/25/2022 9:22 PM Age: 71 years old Clinical indication: Pain; Headache; Additional info: REYNOLDS TECHNIQUE: Imaging protocol: Computed tomographic angiography of the head with contrast. 3D rendering (Not supervised by radiologist): MIP and/or 3D reconstructed images were created by the technologist. Radiation optimization: All CT scans at this facility use at least one of these dose optimization techniques: automated exposure control; mA and/or kV adjustment per patient size (includes targeted exams where dose is matched to clinical indication); or iterative reconstruction. Contrast material: OMNI 350; Contrast volume: 95 ml; Contrast route: INTRAVENOUS (IV); COMPARISON: 1. CT head wo con* [id number] 2022-03-25 21:[address] head wo con* [id number] 2017-01-27 10:[address] angio chest PE protcl [id number] 2021-01-24 14:25 RADIATION DOSE METRICS: Total DLP (mGy-cm): 437.41 FINDINGS: ANTERIOR CIRCULATION: Right internal carotid artery: Unremarkable. Intracranial segment is patent with no significant stenosis. No aneurysm. Right middle cerebral artery: Unremarkable. No occlusion or significant stenosis. No aneurysm. Right anterior cerebral artery: Unremarkable. No occlusion or significant stenosis. No aneurysm. Left internal carotid artery: Unremarkable. Intracranial segment is patent with no significant stenosis. No aneurysm. Left middle cerebral artery: Unremarkable. No occlusion or significant stenosis. No aneurysm. Left anterior cerebral artery: Unremarkable. No occlusion or significant stenosis. No aneurysm. POSTERIOR CIRCULATION: Right vertebral artery: Unremarkable. No occlusion or significant stenosis. No aneurysm. Left vertebral artery: Unremarkable. No occlusion or significant stenosis. No aneurysm. Basilar artery: Unremarkable. No occlusion or significant stenosis. No aneurysm. Right posterior cerebral artery: Unremarkable. No occlusion or significant stenosis. No aneurysm. Left posterior cerebral artery: Unremarkable. No occlusion or significant stenosis. No aneurysm. Brain: No definite mass, mass effect, or midline shift. Cerebral ventricles: No ventriculomegaly. Bones/joints: Unremarkable. No acute fracture. Soft tissues: Unremarkable. PROCEDURE INFORMATION: Exam: CTA Neck With Contrast Exam date and time: 03/25/2022 9:22 PM Age: 71 years old Clinical indication: Pain; Headache; Additional info: REYNOLDS TECHNIQUE: Imaging protocol: Computed tomographic angiography of the neck with contrast. 3D rendering (Not supervised by radiologist): MIP and/or 3D reconstructed images were created by the technologist. Radiation optimization: All CT scans at this facility use at least one of these dose optimization techniques: automated exposure control; mA and/or kV adjustment per patient size (includes targeted exams where dose is matched to clinical indication); or iterative reconstruction. Contrast material: OMNI 350; Contrast volume: 95 ml; Contrast route: INTRAVENOUS (IV); COMPARISON: 1. CT head wo con* [id number] 2022-03-25 21:[address] head wo con* [id number] 2017-01-27 10:[address] angio chest PE protcl [id number] 2021-01-24 14:25 RADIATION DOSE METRICS: Total DLP (mGy-cm): 437.41 FINDINGS: Right common carotid artery: No stenosis. No dissection or occlusion. Right internal carotid artery: No stenosis of the extracranial segment. No dissection or occlusion. Right external carotid artery: No occlusion or stenosis of the origin. Left common carotid artery: No stenosis. No dissection or occlusion. Left internal carotid artery: No stenosis of the extracranial segment. No dissection or occlusion. Left external carotid artery: No occlusion or stenosis of the origin. Right vertebral artery: No stenosis. No dissection or occlusion. Left vertebral artery: No stenosis. No dissection or occlusion. Soft tissues: Normal. No significant soft tissue swelling. Bones/joints: No acute fracture. CT/CT angio headne* [id number] IMPRESSION: No large vessel stenosis or occlusion. IMPRESSION: No acute abnormality. REFERENCES: NASCET CRITERIA. The degree of internal carotid artery stenosis is based on NASCET criteria. Normal is no stenosis. Mild is less than 50% stenosis. Moderate is 50-69% stenosis. Severe is 70% to 99% stenosis. Total occlusion is no detectable patent lumen.
--- NOTE | 2022-03-25 20:06 | CTR_ITS ---
PROCEDURE INFORMATION: Exam: CT Head Without Contrast Exam date and time: 03/25/2022 9:19 PM Age: 71 years old Clinical indication: Pain; Headache; Additional info: REYNOLDS TECHNIQUE: Imaging protocol: Computed tomography of the head without contrast. Radiation optimization: All CT scans at this facility use at least one of these dose optimization techniques: automated exposure control; mA and/or kV adjustment per patient size (includes targeted exams where dose is matched to clinical indication); or iterative reconstruction. COMPARISON: 1. CT head wo con* [id number] 2017-01-27 10:[address] head wo con* [id number] 2016-07-29 10:03 RADIATION DOSE METRICS: Total DLP (mGy-cm): 1027.91 FINDINGS: Brain: Normal. No hemorrhage. Unremarkable white matter. No mass effect. Cerebral ventricles: No ventriculomegaly. Paranasal sinuses: Visualized sinuses are unremarkable. No fluid levels. Mastoid air cells: Visualized mastoid air cells are well aerated. Bones/joints: Unremarkable. No acute fracture. Soft tissues: Unremarkable. CT/CT head con* [id number] IMPRESSION: No acute intracranial abnormality.
--- NOTE | 2022-03-25 20:06 | XRR_ITS ---
PROCEDURE INFORMATION: Exam: XR Chest Exam date and time: 03/25/2022 8:10 PM Age: 71 years old Clinical indication: Cough TECHNIQUE: Imaging protocol: Radiologic exam of the chest. Views: 1 view. COMPARISON: 1. CR XR chest 1V portable [id number] 2021-01-24 11:[address] angio chest PE protcl [id number] 2021-01-24 14:25 3. CR Chest 1 [place] [id number] 2017-09-16 11:38 4. CR Chest 2 views* [id number] 2015-11-30 23:20 FINDINGS: Lungs: Unremarkable. No consolidation. Pleural spaces: Unremarkable. No pleural effusion. No pneumothorax. Heart/Mediastinum: Unremarkable. No cardiomegaly. Bones/joints: Unremarkable. XR/XR chest 1V portable [id number] IMPRESSION: No acute findings.
--- NOTE | 2022-03-25 20:11 | ED_ITS ---
HPI - Headache General: Chief Complaint: Headache Stated Complaint: Headache/N/V-sent by Time Seen by Provider: 03/25/22 20:01 Source: patient Mode of arrival: ambulatory Limitations: no limitations History of Present Illness: 71-year-old female who states that over the last week she been having generalized body aches along with low-grade fevers. States she had a slight cough sore throat along with headaches. States been having some neck pain as well. She denies any worsening proving factors she was seen here 4 days ago had a CT chest abdomen pelvis that were negative a COVID swab that was negative. She states she has had no improvement in her symptoms. Associated symptoms: Reports fever(s); Deny chest pain, nausea, rash or vomiting Review of Systems Const: Reports: fever(s) and body aches Eyes: Denies: blurry vision or eye discomfort ENMT: Reports: throat pain Card: Denies: chest pain Resp: Reports: non-productive cough GI: Denies: abdominal pain, nausea, vomiting or diarrhea : Denies: dysuria Musc: Reports: neck pain Skin/Breast: Denies: rash Neuro: Reports: headache(s) Psych: Denies: depression Roman/Lymph: Denies: easy bruising All/Imm: Denies: urticaria PFSH ED PFSH: Medical History Asthma Family history of ischemic heart disease and other diseases of the circulatory system History of shingles HTN (hypertension), benign Labia minora agglutination Lichen sclerosus No pertinent past medical history neghx: dm,thyroid,dvt/pe PCP: Dr. De La Torre Urgency incontinence Surgical History H/O lithotripsy H/O removal of cyst Cyst removal from LEFT AXILLA cyst removal from left hand H/O tubal ligation H/O: hysterectomy (2011) LAVH, OVARIES AND CERVIX SPARED-- WOOD History of breast lump/mass excision left- benign History of cholecystectomy History of tonsillectomy Family History Father Diabetes Heart disease Hypertension Stroke Brother Diabetes Heart disease Hypertension Stroke Mother Heart disease Hypertension Uterine cancer uterus dx at 88 y/o Breast cancer dx at 62 y/o Sister Heart disease Hypertension Colon cancer dx at 52 y/o Physical Exam Const: COMMON NORMALS: no acute distress, patient oriented x3 and healthy appearing HENMT: COMMON NORMALS: normocephalic and atraumatic HEAD & SCALP: normocephalic and atraumatic Eye: COMMON NORMALS: Equal, round and reactive pupils present and EOMs intact bilaterally PUPIL: Yes Equal, round and reactive pupils present Neck/C-Spine: COMMON NORMALS: full ROM and supple Chest: COMMONS NORMALS: normal inspection of the chest and normal palpation of entire chest wall Resp: COMMON NORMALS: normal respiratory effort, No retractions, No use of accessory muscles and clear to auscultation bilaterally AUSCULTATION: clear to auscultation bilaterally Cardio: COMMON NORMALS: regular rate, regular rhythm and No murmurs present (Cardio) RATE: regular rate RHYTHM: regular rhythm GI: COMMON NORMALS: Normal to inspection, nondistended, normoactive bowel sounds present, Soft to palpation, non-tender and no masses PALPATION: Yes Soft to palpation Extremity: COMMON NORMALS: normal to inspection and full ROM Neuro: COMMON NORMALS: patient oriented x3, moves all extremities and no focal motor deficits Psych: COMMON NORMALS: mental status grossly normal, Normal thought process present and cooperative THOUGHT PROCESS: Normal thought process present Skin: COMMON NORMALS: no rashes or lesions noted and no wounds GENERAL SKIN EXAM: no rashes or lesions noted Course Vital Signs: Vital signs: Vital Signs Temperature 98.4 F 03/25/22 20:17 Pulse Rate 79 03/25/22 23:41 Respiratory Rate 16 03/25/22 23:41 Blood Pressure 108/70 03/25/22 23:41 Pulse Oximetry 94 03/25/22 23:41 MDM - Headache Medical Decision Making Patient presents here with headache along with low-grade fevers at home and cough and sore throat. Likely viral syndrome patient's white count CRP here are normal CT head is normal as well. I did have a long discussion with her about ruling out meningitis and did offer a lumbar puncture headache is improved. She wants to try antibiotics first and if worsen she will return she understands agrees to plan. Lab Data : 03/25/22 20:14 03/25/22 20:14 Radiology Impressions Chest X-Ray 03/25/22 20:06 IMPRESSION: No acute findings. Head CT 03/25/22 20:06 IMPRESSION: No acute intracranial abnormality. Head/Neck CTA 03/25/22 20:06 IMPRESSION: No large vessel stenosis or occlusion. IMPRESSION: No acute abnormality. REFERENCES: NASCET CRITERIA. The degree of internal carotid artery stenosis is based on NASCET criteria. Normal is no stenosis. Mild is less than 50% stenosis. Moderate is 50-69% stenosis. Severe is 70% to 99% stenosis. Total occlusion is no detectable patent lumen. Laboratory Results WBC 4.1 10^3/uL (4.0-10.0) 03/25/22 20:14 RBC 4.85 10^6/uL (4.1-5.3) 03/25/22 20:14 Hgb 14.3 g/dL (11.5-15.3) 03/25/22 20:14 Hct 42.6 % (37.0-47.0) 03/25/22 20:14 MCV 87.8 fl (81-99) 03/25/22 20:14 MCH 29.5 pg (28.0-34.0) 03/25/22 20:14 MCHC 33.6 g/dL (30.0-36.0) 03/25/22 20:14 RDW 12.8 % (12.1-15.1) 03/25/22 20:14 Plt Count 129 10^3/cmm (130-400) L 03/25/22 20:14 MPV 9.2 fL (7.4-10.4) 03/25/22 20:14 Neut % (Auto) 69.0 % 03/25/22 20:14 Lymph % (Auto) 22.9 % 03/25/22 20:14 [place] % (Auto) 6.2 % 03/25/22 20:14 Eos % (Auto) 0.2 % 03/25/22 20:14 Baso % (Auto) 0.7 % 03/25/22 20:14 Neut # (Auto) 2.80 10^3/uL (1.8-7.7) 03/25/22 20:14 Lymph # (Auto) 0.9 10^3/uL (0.8-4.8) 03/25/22 20:14 [place] # (Auto) 0.3 10^3/uL (0.2-0.9) 03/25/22 20:14 Eos # (Auto) 0.0 10^3/uL (0.0-0.8) 03/25/22 20:14 Baso # (Auto) 0.0 10^3/uL (0.0-0.1) 03/25/22 20:14 Nucleated RBC % (auto) 0 % 03/25/22 20:14 Nucleated RBCs # 0.0 /100WBC 03/25/22 20:14 Sodium 132 mmol/L (136-145) L 03/25/22 20:14 Potassium 3.8 mmol/L (3.5-5.1) 03/25/22 20:14 Chloride 97 mmol/L (98-107) L 03/25/22 20:14 Carbon Dioxide 23 mmol/L (22-29) 03/25/22 20:14 Anion Gap 15.8 (5-19) 03/25/22 20:14 BUN 17 mg/dL (8-23) 03/25/22 20:14 Creatinine 0.7 mg/dL (0.5-0.9) 03/25/22 20:14 GFR Calculation 83.0 mL/min (90-130) L 03/25/22 20:14 Glucose 132 mg/dL (65-115) H 03/25/22 20:14 Calculated Osmolality 277 mOsm/kg (285-295) L 03/25/22 20:14 Calcium 9.6 mg/dL (8.5-10.5) 03/25/22 20:14 Total Bilirubin 1.0 mg/dL (0.15-1.2) 03/25/22 20:14 AST 140 U/L (0-32) H 03/25/22 20:14 ALT 188 U/L (0-33) H 03/25/22 20:14 Alkaline Phosphatase 146 IU/L (35-105) H 03/25/22 20:14 C-Reactive Protein 19.7 mg/L (0.0-4.9) H 03/25/22 20:14 Total Protein 6.8 g/dL (6.6-8.7) 03/25/22 20:14 Albumin 4.1 g/dL (3.5-5.2) 03/25/22 20:14 Globulin 2.7 g/dL (1.3-4.6) 03/25/22 20:14 Lipase 59 U/L (13-60) 03/25/22 20:14 Urine Color Yellow (Yellow) 03/25/22 20:45 Urine Appearance Clear (CLEAR) 03/25/22 20:45 Urine pH 6 (5-7) 03/25/22 20:45 Ur Specific [place] 1.015 (1.005-1.030) 03/25/22 20:45 Urine Protein Neg (Negative) 03/25/22 20:45 Urine Glucose (UA) Norm (Normal) 03/25/22 20:45 Urine Ketones Negative (Negative) 03/25/22 20:45 Urine Blood Neg (Negative) 03/25/22 20:45 Urine Nitrate Negative (Negative) 03/25/22 20:45 Urine Bilirubin Neg (Negative) 03/25/22 20:45 Urine Urobilinogen Norm mg/dL (Negative) 03/25/22 20:45 Ur Leukocyte Esterase Negative (Negative) 03/25/22 20:45 SARS-CoV-2 Ag (Rapid) Negative (Negative) 03/25/22 20:26 Discharge Plan Discharge Patient Disposition: Home Clinical Impression: Headache, Acute viral syndrome Condition: Stable Prescriptions: New cephalexin 500 mg capsule 500 mg PO QID 7 Days Qty: 28 0RF Reglan 10 mg tablet 10 mg PO Q6H PRN (Reason: nausea and vomiting) Qty: 20 0RF No Action albuterol sulfate [ProAir HFA] 90 mcg/actuation HFA aerosol inhaler 1 inh INHALATION QID PRN (Reason: Shortness Of Breath) 0RF Galzin 25 mg (zinc) capsule 25 mg PO DAILY 0RF vitamin B complex [B Complex-Vitamin B12] Tablet 1 tab PO DAILY 0RF acyclovir 800 mg tablet 800 mg PO DAILY PRN0RF hydrochlorothiazide 12.5 mg tablet 12.5 mg PO DAILY PRN (Reason: edema) Qty: 30 2RF clobetasol 0.05 % ointment 1 applic topical BID PRN (Reason: lichen sclerosis ) Qty: 30 1RF Rx Instructions: USE DIRECTED lisinopril-hydrochlorothiazide 10-12.5 mg tablet 1 tab PO DAILY 0RF Vitamin D3 1 tab PO DAILY 0RF promethazine 25 mg tablet 25 mg PO Q6H PRN (Reason: nausea and vomiting) Qty: 20 0RF Discharge Orders: Discharge ED (Routine); Ordered 03/25/22 Ordered By: Rodrigo Morgan Referrals: Rohan Syed, [Primary Care Provider] - 1-3 days Discharge Diet: Advance as tolerated Discharge Activity: Resume usual activity Patient Instructions: Acute Headache (ED) Coding Level of Care Code ED Guide Foreign Tour for Chg Fwd Exam Comprehensive
[2022-03-25 20:17] VITALS: BP 123/75; PULSE 95; RESP 18; TEMP 36.9; O2SAT 95; BMI 32.1
[2022-03-25] MEDS: ondansetron 2 mg/ML SDV 2 mL 4 MG IVP (20:17)
[2022-03-25 20:19] VITALS: RESP 18
[2022-03-25] MEDS: HYDROmorphone 1 mg/mL INJ 1 mL 0.5 MG IVP (20:19)
[2022-03-25 20:21] LABS: Basophils % 0.7 %; Eosinophils % 0.2 %; Hematocrit 42.6 % (37.0-47.0); Hemoglobin 14.3 g/dL (11.5-15.3); Lymphocytes # 0.9 10^3/uL (0.8-4.8); Lymphocytes % 22.9 %; Mean Corpuscular HGB Conc 33.6 g/dL (30.0-36.0); Mean Corpuscular Hemoglobin 29.5 pg (28.0-34.0); Mean Corpuscular Volume 87.8 fl (81-99); Mean Platelet Volume 9.2 fL (7.4-10.4); Monocytes # 0.3 10^3/uL (0.2-0.9); Monocytes % 6.2 %; Nucleated Red Blood Cells % 0 %; Platelet Count 129 10^3/cmm (130-400); Red Blood Count 4.85 10^6/uL (4.1-5.3); Red Cell Distribution Width 12.8 % (12.1-15.1); White Blood Count 4.1 10^3/uL (4.0-10.0)
[2022-03-25 20:23] VITALS: BP 119/81; PULSE 91; RESP 18; O2SAT 91
[2022-03-25 20:48] LABS: Alanine Aminotransferase 188 U/L (0-33); Albumin Level 4.1 g/dL (3.5-5.2); Alkaline Phosphatase 146 IU/L (35-105); Anion Gap 15.8 (5-19); Aspartate Amino Transferase 140 U/L (0-32); Blood Urea Nitrogen 17 mg/dL (8-23); C Reactive Protein 19.7 mg/L (0.0-4.9); Calcium 9.6 mg/dL (8.5-10.5); Carbon Dioxide 23 mmol/L (22-29); Chloride 97 mmol/L (98-107); Globulin 2.7 g/dL (1.3-4.6); Glucose 132 mg/dL (65-115); Lipase 59 U/L (13-60); Osmolality Calculated 277 mOsm/kg (285-295); Potassium 3.8 mmol/L (3.5-5.1); Sodium 132 mmol/L (136-145); Total Protein 6.8 g/dL (6.6-8.7)
[2022-03-25 20:51] LABS: Add Urine Microscopic? NO; Charge for UA Resulting for Rev
[2022-03-25 20:53] LABS: Bilirubin Urine Neg (Negative); Blood Urine Neg (Negative); Glucose Urine UA Norm (Normal); Ketones Urine Negative (Negative); Leukocyte Esterase Urine Negative (Negative); Nitrate Urine Negative (Negative); Protein Urine Neg (Negative); Specific Gravity, Urine 1.015 (1.005-1.030); Urine Appearance Clear (CLEAR); Urine Color Yellow (Yellow); Urobilinogen Urine Norm (Negative); pH Urine 6 (5-7)
[2022-03-25 21:02] LABS: SARS Covid-2 Antigen Negative (Negative)
[2022-03-25] MEDS: diphenhydrAMINE 50 mg/mL SDV 1mL 25 MG IVP (21:45)
[2022-03-25] MEDS: metoclopramide 5 mg/mL SDV 2 mL IVP (21:51)
[2022-03-25] MEDS: cefTRIAXone 1,000 MG in sodium chloride 0.9% (plus) 50 ML 100 MG IV (23:07)
[2022-03-25 23:41] VITALS: BP 108/70; PULSE 79; RESP 16; O2SAT 94
== END 2022-03-25 23:43 | disposition home or self-care (01) ==
PROVIDERS: Emergency Provider Emergency Medicine; PCP Family Medicine
DX: R51.9 Headache, unspecified (principal); B34.9 Viral infection, unspecified; I10 Essential (primary) hypertension; Z20.822 Contact with and (suspected) exposure to COVID-19
CPT/HCPCS: 36415; 70450; 70496; 70498; 71045; 80053; 81003; 83690; 85025; 86140; 87040; 87426; 99285; J0696; J1170; J1200; J2405; J2765; Q9967

== ENCOUNTER 2022-03-28 23:35 | Inpatient (IN) | payer MEDICARE, OTHER, SELFPAY ==
[2022-03-28 23:42] VITALS: BP 97/61; PULSE 78; RESP 18; TEMP 36.4; O2SAT 97; BMI 32.1
[2022-03-28 23:57] LABS: Hematocrit 38.6 % (37.0-47.0); Mean Corpuscular HGB Conc 33.7 g/dL (30.0-36.0); Mean Corpuscular Hemoglobin 29.1 pg (28.0-34.0); Mean Corpuscular Volume 86.5 fl (81-99); Mean Platelet Volume 8.7 fL (7.4-10.4); Platelet Count 143 10^3/cmm (130-400); Red Blood Count 4.46 10^6/uL (4.1-5.3); Red Cell Distribution Width 12.8 % (12.1-15.1); White Blood Count 4.2 10^3/uL (4.0-10.0)
[2022-03-29] VITALS (8 sets, daily range): BP systolic 103–124; BP diastolic 68–82; PULSE 69–82; RESP 15–20; TEMP 36.6–38.2; O2SAT 94–97
[2022-03-29 00:19] LABS: Alanine Aminotransferase 81 U/L (0-33); Albumin Level 3.7 g/dL (3.5-5.2); Alkaline Phosphatase 151 IU/L (35-105); Anion Gap 12.6 (5-19); Aspartate Amino Transferase 41 U/L (0-32); Blood Urea Nitrogen 17 mg/dL (8-23); C Reactive Protein 41.1 mg/L (0.0-4.9); Carbon Dioxide 26 mmol/L (22-29); Chloride 93 mmol/L (98-107); Globulin 2.8 g/dL (1.3-4.6); Glomerular Filtration Rate 71.1 mL/min (90-130); Glucose 123 mg/dL (65-115); Lipase 42 U/L (13-60); Osmolality Calculated 269 mOsm/kg (285-295); Potassium 3.6 mmol/L (3.5-5.1); Sodium 128 mmol/L (136-145); Total Bilirubin 1.2 mg/dL (0.15-1.2); Total Protein 6.5 g/dL (6.6-8.7)
[2022-03-29 00:22] LABS: Slide Review Slide Review Perform
[2022-03-29 00:23] LABS: Absolute Neutrophil 2.6 10^3/cmm (1.4-6.5); Absolute Segmented Neutrophil 2.1 10/cmm (1.6-7.1); Band Neutrophils Absolute 0.5 10^3/cmm (0.0-1.2); Eosinophils 0 %; Lymphocytes 21 %; Lymphocytes Absolute 1.3 10^3/cmm (1.2-3.4); Monocytes Absolute 0.2 10^3/cmm (0.1-0.6); Platelet Estimate Normal (Normal); Segmented Neutrophils 51 %; Total Cells Counted 100 (0-100)
--- NOTE | 2022-03-29 00:37 | CTR_ITS ---
PROCEDURE INFORMATION: Exam: CT Abdomen And Pelvis With Contrast Exam date and time: 03/29/2022 1:14 AM Age: 71 years old Clinical indication: Nausea and vomiting; Abdominal pain; Generalized; Prior surgery; Surgery type: Gb. Tubal. Patient HX: Diffuse abd pain with n/v. TECHNIQUE: Imaging protocol: Computed tomography of the abdomen and pelvis with contrast. Radiation optimization: All CT scans at this facility use at least one of these dose optimization techniques: automated exposure control; mA and/or kV adjustment per patient size (includes targeted exams where dose is matched to clinical indication); or iterative reconstruction. Contrast material: OMNI 350; Contrast volume: 95 ml; Contrast route: INTRAVENOUS (IV); COMPARISON: CT abdomen pelvis w con* [id number] 03/20/2022 9:47 AM RADIATION DOSE METRICS: Total DLP (mGy-cm): 927.63 FINDINGS: Lungs: The lung bases are clear. No effusion Diaphragm: Small hiatal hernia. Liver: 8 mm hepatic cyst. Gallbladder and bile ducts: There has been a cholecystectomy. Pancreas: Normal. No ductal dilation. Spleen: Normal. No splenomegaly. Adrenal glands: Normal. No mass. Kidneys and ureters: 2 cm left renal cyst. Stomach and bowel: Unremarkable. No obstruction. No mucosal thickening. Appendix: No evidence of appendicitis. Intraperitoneal space: Unremarkable. No free air. No significant fluid collection. Vasculature: Unremarkable. No abdominal aortic aneurysm. Lymph nodes: Unremarkable. No enlarged lymph nodes. Urinary bladder: Unremarkable as visualized. Reproductive: Unremarkable as visualized. Bones/joints: Unremarkable. No acute fracture. Soft tissues: Unremarkable. CT/CT abdomen pelvis w con* [id number] IMPRESSION: 1. Small hiatal hernia. 2. No cause for acute pain is identified. COMMENTS: Consistent with the [employer]'s Incidental Findings Committee white paper (J Am Wanda Radiol 2018): Any incidental renal lesion less than 1 cm or classified as too small to characterize, or any incidental cystic renal lesion characterized as simple-appearing, is likely benign. No follow-up imaging is recommended for these lesions per consensus recommendations based on imaging criteria.
[2022-03-29] MEDS: morphine 4 mg/mL SDV 1 mL IVP (01:00)
[2022-03-29] MEDS: ondansetron 2 mg/ML SDV 2 mL 4 MG IVP (01:00)
[2022-03-29] MEDS: sodium chloride 0.9% 1,000 ML 999 ML IV (01:00)
[2022-03-29] MEDS: iohexol 350 mg/mL 100 mL Btl IV (01:15)
--- NOTE | 2022-03-29 01:19 | W.ED.NAVMDI ---
HPI - Nausea/Vomiting/Diarrhea General: Chief complaint: Nausea/Vomiting/Diarrhea Stated complaint: Headache\N\V\Weakness Time Seen by Provider: 03/29/22 00:38 Source: patient Mode of arrival: ambulatory Limitations: no limitations History of Present Illness: 71-year-old female who states over the last 10 days she has been having headaches along with fevers and nausea and vomiting. Patient's been seen here twice before she has been on Keflex along with Reglan states that her vomiting is not improved she is continue to have vomiting states that she started to have muscle cramps and feeling weak. States she is continue have headaches but they are not as severe in nature she rates it a 2 out of 10. She is still has abdominal cramping Associated nausea: Yes Associated symtoms: Reports fatigue, headache(s) and nausea; Denies chest pain or dysuria Review of Systems Const: Reports: fever(s), body aches and fatigue Eyes: Denies: blurry vision or eye discomfort ENMT: Denies: throat pain or dental pain Card: Denies: chest pain Resp: Denies: dyspnea GI: Reports: nausea and vomiting : Denies: dysuria Musc: Denies: neck pain or back pain Skin/Breast: Denies: rash Neuro: Reports: headache(s) Psych: Denies: depression Roman/Lymph: Denies: easy bruising All/Imm: Denies: urticaria PFSH ED PFSH: Medical History Asthma Family history of ischemic heart disease and other diseases of the circulatory system History of shingles HTN (hypertension), benign Labia minora agglutination Lichen sclerosus No pertinent past medical history neghx: dm,thyroid,dvt/pe PCP: Dr. De La Torre Urgency incontinence Surgical History H/O lithotripsy H/O removal of cyst Cyst removal from LEFT AXILLA cyst removal from left hand H/O tubal ligation H/O: hysterectomy (2011) LAVH, OVARIES AND CERVIX SPARED-- WOOD History of breast lump/mass excision left- benign History of cholecystectomy History of tonsillectomy Family History Father Diabetes Heart disease Hypertension Stroke Brother Diabetes Heart disease Hypertension Stroke Mother Heart disease Hypertension Uterine cancer uterus dx at 88 y/o Breast cancer dx at 62 y/o Sister Heart disease Hypertension Colon cancer dx at 52 y/o Physical Exam Const: COMMON NORMALS: patient oriented x3 HENMT: COMMON NORMALS: normocephalic and atraumatic HEAD & SCALP: normocephalic and atraumatic Eye: COMMON NORMALS: Equal, round and reactive pupils present and EOMs intact bilaterally PUPIL: Yes Equal, round and reactive pupils present Neck/C-Spine: COMMON NORMALS: full ROM and supple Chest: COMMONS NORMALS: normal inspection of the chest and normal palpation of entire chest wall Resp: COMMON NORMALS: normal respiratory effort, No retractions, No use of accessory muscles and clear to auscultation bilaterally AUSCULTATION: clear to auscultation bilaterally Cardio: COMMON NORMALS: regular rate, regular rhythm and No murmurs present (Cardio) RATE: regular rate RHYTHM: regular rhythm GI: COMMON NORMALS: Normal to inspection, nondistended, normoactive bowel sounds present, Soft to palpation, non-tender and no masses PALPATION: Yes Soft to palpation Extremity: COMMON NORMALS: normal to inspection and full ROM Neuro: COMMON NORMALS: patient oriented x3, moves all extremities and no focal motor deficits Psych: COMMON NORMALS: mental status grossly normal, Normal thought process present and cooperative THOUGHT PROCESS: Normal thought process present Skin: COMMON NORMALS: no rashes or lesions noted and no wounds GENERAL SKIN EXAM: no rashes or lesions noted Course Vital Signs: Vital signs: Vital Signs Temperature 97.6 F 03/28/22 23:42 Pulse Rate 78 03/28/22 23:42 Respiratory Rate 18 03/29/22 01:00 Blood Pressure 97/61 03/28/22 23:42 Pulse Oximetry 97 03/28/22 23:42 Oxygen Delivery Me thod 03/28/22 23:42 MDM - Nausea/Vomiting/Diarrhea Medical Decision Making Patient presents here with vomiting along with headache and low-grade fevers. I did offer a lumbar puncture and she refused CT and blood work here are all normal except for mild hyponatremia spoke to hospitalist will admit at this time. Lab Data : 03/28/22 23:50 03/28/22 23:50 Radiology Impressions Abdomen/Pelvis CT 03/29/22 00:37 IMPRESSION: 1. Small hiatal hernia. 2. No cause for acute pain is identified. COMMENTS: Consistent with the [employer]'s Incidental Findings Committee white paper (J Am Wanda Radiol 2018): Any incidental renal lesion less than 1 cm or classified as too small to characterize, or any incidental cystic renal lesion characterized as simple-appearing, is likely benign. No follow-up imaging is recommended for these lesions per consensus recommendations based on imaging criteria. Laboratory Results WBC 4.2 10^3/uL (4.0-10.0) 03/28/22 23:50 RBC 4.46 10^6/uL (4.1-5.3) 03/28/22 23:50 Hgb 13.0 g/dL (11.5-15.3) 03/28/22 23:50 Hct 38.6 % (37.0-47.0) 03/28/22 23:50 MCV 86.5 fl (81-99) 03/28/22 23:50 MCH 29.1 pg (28.0-34.0) 03/28/22 23:50 MCHC 33.7 g/dL (30.0-36.0) 03/28/22 23:50 RDW 12.8 % (12.1-15.1) 03/28/22 23:50 Plt Count 143 10^3/cmm (130-400) 03/28/22 23:50 MPV 8.7 fL (7.4-10.4) 03/28/22 23:50 Lymph % (Auto) Not Reportable 03/28/22 23:50 Delta % (Auto) Not Reportable 03/28/22 23:50 Lymph # (Auto) Not Reportable 03/28/22 23:50 Delta # (Auto) Not Reportable 03/28/22 23:50 Total Counted 100 (0-100) 03/28/22 23:50 Atypical Lymphs % 11.0 % (0-5) H 03/28/22 23:50 Absolute Neutrophils 2.6 10^3/cmm (1.4-6.5) 03/28/22 23:50 Segmented Neutrophils 51 % 03/28/22 23:50 Abs Segm Neuts (Man) 2.1 10/cmm (1.6-7.1) 03/28/22 23:50 Band Neutrophils 11.0 % 03/28/22 23:50 Abs Band Neuts (Man) 0.5 10^3/cmm (0.0-1.2) 03/28/22 23:50 Absolute Lymphocytes 1.3 10^3/cmm (1.2-3.4) 03/28/22 23:50 Lymphocytes (Manual) 21 % 03/28/22 23:50 Monocytes (Manual) 4.0 % 03/28/22 23:50 Absolute Monocytes 0.2 10^3/cmm (0.1-0.6) 03/28/22 23:50 Eosinophils (Manual) 0 % 03/28/22 23:50 Absolute Eosinophils 0.0 10^3/cmm (0.0-0.7) 03/28/22 23:50 Basophils (Manual) 0.0 % 03/28/22 23:50 Absolute Basophils 0.0 10^3/cmm (0.0-0.2) 03/28/22 23:50 Metamyelocytes 2.0 % 03/28/22 23:50 Platelet Estimate Normal (Normal) 03/28/22 23:50 Sodium 128 mmol/L (136-145) L 03/28/22 23:50 Potassium 3.6 mmol/L (3.5-5.1) 03/28/22 23:50 Chloride 93 mmol/L (98-107) L 03/28/22 23:50 Carbon Dioxide 26 mmol/L (22-29) 03/28/22 23:50 Anion Gap 12.6 (5-19) 03/28/22 23:50 BUN 17 mg/dL (8-23) 03/28/22 23:50 Creatinine 0.8 mg/dL (0.5-0.9) 03/28/22 23:50 GFR Calculation 71.1 mL/min (90-130) L 03/28/22 23:50 Glucose 123 mg/dL (65-115) H 03/28/22 23:50 Calculated Osmolality 269 mOsm/kg (285-295) L 03/28/22 23:50 Lactate 1.0 mmol/L (0.5-2.2) 03/28/22 23:50 Calcium 9.0 mg/dL (8.5-10.5) 03/28/22 23:50 Total Bilirubin 1.2 mg/dL (0.15-1.2) 03/28/22 23:50 AST 41 U/L (0-32) H 03/28/22 23:50 ALT 81 U/L (0-33) H 03/28/22 23:50 Alkaline Phosphatase 151 IU/L (35-105) H 03/28/22 23:50 C-Reactive Protein 41.1 mg/L (0.0-4.9) H 03/28/22 23:50 Total Protein 6.5 g/dL (6.6-8.7) L 03/28/22 23:50 Albumin 3.7 g/dL (3.5-5.2) 03/28/22 23:50 Globulin 2.8 g/dL (1.3-4.6) 03/28/22 23:50 Lipase 42 U/L (13-60) 03/28/22 23:50 Discharge Plan Discharge Patient Disposition: Admitted As Inpatient Clinical Impression: Vomiting, Headache, Hyponatremia Condition: Stable Prescriptions: No Action albuterol sulfate [ProAir HFA] 90 mcg/actuation HFA aerosol inhaler 1 inh INHALATION QID PRN (Reason: Shortness Of Breath) Galzin 25 mg (zinc) capsule 25 mg PO DAILY vitamin B complex [B Complex-Vitamin B12] Tablet 1 tab PO DAILY acyclovir 800 mg tablet 800 mg PO DAILY PRN hydrochlorothiazide 12.5 mg tablet 12.5 mg PO DAILY PRN (Reason: edema) Qty: 30 2RF clobetasol 0.05 % ointment 1 applic topical BID PRN (Reason: lichen sclerosis ) Qty: 30 1RF Rx Instructions: USE DIRECTED lisinopril-hydrochlorothiazide 10-12.5 mg tablet 1 tab PO DAILY Vitamin D3 1 tab PO DAILY promethazine 25 mg tablet 25 mg PO Q6H PRN (Reason: nausea and vomiting) Qty: 20 0RF cephalexin 500 mg capsule 500 mg PO QID 7 Days Qty: 28 0RF Reglan 10 mg tablet 10 mg PO Q6H PRN (Reason: nausea and vomiting) Qty: 20 0RF Referrals: Rohan Syed DO [Primary Care Provider] - Coding Level of Care Code ED Director Of Health Care Marketing for Chg Fwd Exam Comprehensive
[2022-03-29] MEDS: metoclopramide 5 mg/mL SDV 2 mL IVP (01:33)
[2022-03-29] MEDS: diphenhydrAMINE 50 mg/mL SDV 1mL 25 MG IVP (01:36)
--- NOTE | 2022-03-29 02:31 | XRR_ITS ---
PROCEDURE INFORMATION: Exam: XR Chest Exam date and time: 03/29/2022 2:58 AM Age: 71 years old Clinical indication: Cough; Prior surgery; Surgery type: Gb TECHNIQUE: Imaging protocol: Radiologic exam of the chest. Views: 1 view. COMPARISON: CR (CHEST, ) 03/25/2022 8:10 PM FINDINGS: Lungs: Unremarkable. No consolidation. Pleural spaces: Unremarkable. No pleural effusion. No pneumothorax. Heart/Mediastinum: There is mild cardiomegaly. Bones/joints: Unremarkable. Organs: There has been a cholecystectomy. XR/XR chest 1V portable [id number] IMPRESSION: 1. Mild cardiomegaly. 2. No acute disease.
--- NOTE | 2022-03-29 06:50 | CT_ITS ---
WS: [id number] CT CHEST WITHOUT INTRAVENOUS CONTRAST HISTORY: FUO, cough TECHNIQUE: Contiguous 5 mm axial imaging performed on the thorax. Coronal and sagittal reformats are submitted. All CT scans at [facility] use at least one of these dose optimization techniques: automated exposure control; mA and/or kV adjustment per patient size (includes targeted exams where dose is matched to clinical indication); or iterative reconstruction. CONTRAST: None DLP: 776.24 mGy.cm COMPARISON: 01/24/2021, radiographs 03/29/2022 Lungs and central airway: Lungs are well aerated. No mass or pneumonia. No nodule is identified. Pleura: Normal. No pleural effusion. Heart and pericardium: Normal size heart with no pericardial effusion. Mediastinum and zeina: No enlarged lymph nodes noted on this unenhanced examination. Vessels: Mildly prominent pulmonary artery. Normal aorta. Chest wall and lower neck: No soft tissue masses. Upper abdomen: Small hiatal hernia. Prior cholecystectomy. Mild hepatic steatosis. Nonobstructing shannan cification upper pole LEFT kidney measures 10 mm. This calcification is new since 01/24/2021. There is an additional low-attenuation nodule upper pole LEFT kidney measuring 14 mm which is probably a smal l cyst. This was also present on the prior study. Osseous structures: Mild thoracic spondylosis. CT/CT chest wo con [id number] IMPRESSION: 1. No pneumonia or adenopathy within the thorax. 2. Prior cholecystectomy. 3. Small hiatal hernia. 4. Nonobstructing 10 mm calcification upper pole LEFT kidney.
--- NOTE | 2022-03-29 06:58 | P.HP_ITS ---
Providers/Chief Complaint Admitting Physician: Marian Cantu MD Primary Care Provider: Rohan Syed DO Chief Complaint: Headache\N\V\Weakness History of Present Illness Megan Love is a 71 year old female with a past medical history of hypertension, asthma, presenting to the ER today due to ongoing fever for the past 10 days. Patient states she for started having fevers up to 102 Fahrenheit starting around March 18, 2022. Fevers are almost a daily occurrence, no diurnal variation, associated with chills. She has also had a dry cough over the same timeframe. Cough is nonproductive, triggered by exertion and movement, no history of hemoptysis. She has a history of asthma and has been using albuterol inhaler without any significant relief. Denies any dyspnea however reports reduced exercise capacity related to generalized malaise and fatigue. She has additionally had headache nausea and occasional vomiting. Developed diarrhea after receiving presumptive courses of Bactrim and cephalexin over the past 10 days. No complaints of rhinorrhea, sore throat, odynophagia, ear pain or discharge. She has a history of recurrent UTIs and at the time of onset of symptoms had contacted her primary care physician who prescribed a course of Bactrim without any change in symptoms. She has additionally been evaluated at the ER twice since March 18, UA initially positive on March 20, thereafter turned bland. Urine culture has been negative. Blood cultures taken twice on March 20 and March 25 additionally negative. She traveled to [place] approximately 1 month ago and spent time with her grandkids. Denies any hiking camping or water activities. No sick contacts cu rrently at home or at the time of her trip, however her grandson tested + for COVID-19 10 days after the trip. Patient has tested negative for COVID-19 on a rapid antigen and PCR twice since onset of symptoms. No history of international travel. No history of travel to [facility]. She has not noticed any lymphadenopathy. She has a pruritic fine scaly rash on the upper part of her back which was noticed by her . No history of consumption of unpasteurized products. She has 3 dogs as pets, no history of animal bite or scratches. No history of contact with cattle or other farm animals. No past history of malignancies or autoimmune disorders. No history of joint replacement or valvular replacement. She has a history of cataract surgery and poor vision in her left eye, however states this is not new and unchanged since the onset of her fever. Has a history of recurrent herpetic rash over her right palm for which she takes as needed acyclovir, however has not had an outbreak in the last 8 months. Review of Systems General: Reports: 10 or more systems reviewed and unremarkable except in HPI and below Const: Denies: fever(s), chills or body aches Eyes: Denies: change in vision, blurry vision or photophobia ENMT: Reports: hoarseness; Denies: throat pain, enlarged tonsils, odynophagia or nasal congestion Card: Denies: chest pain, palpitations, irregular heart rhythm, edema, swelling of feet/ankles, lightheadedness, pre-syncope, dyspnea on exertion or orthopnea Resp: Denies: dyspnea, productive cough, non-productive cough, wheezing, st ridor, pain on inspiration, change in phlegm color, hemoptysis or chest congestion GI: Denies: abdominal pain, nausea, vomiting, hematemesis, coffee ground emesis, dysphagia, heartburn, diarrhea, constipation, GI cramping, change in stool character, hematochezia or melena : Denies: flank pain, difficulty voiding, dysuria, urinary frequency, urinary urgency, urinary hesitancy or hematuria Musc: Denies: neck pain, back pain, extremity pain, joint swelling, joint warmth or deformity Neuro: Denies: headache(s), numbness in extremities, weakness in extremities, sensory changes, difficulty walking, frequent falls, dizziness, vertigo, behavioral changes, Slurred speech present or seizure-like activity Psych: Denies: anxiety, depression, suicidal ideation or homicidal ideation Endo: Denies: polyuria, polydipsia, tired all the time, cold intolerance or hot flashes Roman/Lymph: Denies: easy bruising or easy bleeding Medications/Allergies Home Medications Medication Instructions Recorded Confirmed Last Taken Type albuterol sulfate 90 mcg/actuation 1 inh inhalation QID PRN Shortness 08/01/20 03/29/22 01/21/21 History aerosol inhaler (ProAir HFA) Of Breath lisinopril 10 1 tab PO DAILY 01/24/21 03/29/22 04/05/21 06:30 History mg-hydrochlorothiazide 12.5 mg tablet hydrochlorothiazide 12.5 mg tablet 12.5 mg PO DAILY PRN edema #30 tabs 05/04/21 03/29/22 Unknown Rx acyclovir 800 mg tablet 800 mg PO DAILY PRN Cold Sores 05/15/21 03/29/22 Unknown History clobetasol 0.05 % topical ointment 1 applic topical BID PRN lichen 03/20/22 03/29/22 Unknown Rx sclerosis #30 grams promethazine 25 mg tablet 25 mg PO Q6H PRN nausea and 03/20/22 03/29/22 Unknown Rx vomiting #20 tabs cephalexin 500 mg capsule 500 mg PO QID 7 days #28 caps 03/25/22 03/29/22 Unknown Rx metoclopramide HCl 10 mg tablet 10 mg PO Q6H PRN nausea and 03/25/22 03/29/22 Unknown Rx (Reglan) vomiting #20 tabs Allergies Allergy/AdvReac Type Severity Reaction Status Date / Time hydroxyprogesterone Allergy skin Verified 03/29/22 08:39 [From Delalutin] irritation/itching at injection site PFSH Acute PFSH: Medical History Asthma Family history of ischemic heart disease and other diseases of the circulatory system History of shingles HTN (hypertension), benign Labia minora agglutination Lichen sclerosus No pertinent past medical history neghx: dm,thyroid,dvt/pe PCP: Dr. De La Torre Urgency incontinence Surgical History H/O lithotripsy H/O removal of cyst Cyst removal from LEFT AXILLA cyst removal from left hand H/O tubal ligation H/O: hysterectomy (2011) LAVH, OVARIES AND CERVIX SPARED-- WOOD History of breast lump/mass excision left- benign History of cholecystectomy History of tonsillectomy Family History Father Diabetes Heart disease Hypertension Stroke Brother Diabetes Heart disease Hypertension Stroke Mother Heart disease Hypertension Uterine cancer uterus dx at 88 y/o Breast cancer dx at 62 y/o Sister Heart disease Hypertension Colon cancer dx at 52 y/o Vitals/I&O/Wt Last Vital Signs Temp 97.9 F 03/29/22 05:10 Pulse 71 03/29/22 05:10 Resp 16 03/29/22 05:10 BP 103/69 03/29/22 05:10 Pulse Ox 97 03/29/22 05:10 O2 Del Method 03/29/22 04:06 03/28/22 03/28/22 03/29/22 14:59 22:59 06:59 Intake Total 1200 / 1200 Balance 1200 / 1200 Weight last 48 hrs Weight 92.986 kg Physical Exam Narrative: General: No acute distress, AO x3 HEENT: PERRLA, pupils bilaterally equal and reactive, pallors not present Chest: Normal vesicular breath sounds, no added sounds, equal good air entry bilaterally CVS: S1-S2 regular, no murmurs, no tachycardia, no gallops, no rubs Abdomen: Soft, nontender, no organomegaly, bowel sounds present Neuro: No focal deficits, no facial deformity, AO x3, power 5/5 in all limbs Extremities: No edema clubbing or cyanosis. Data : 03/28/22 23:50 03/28/22 23:50 Other Labs: CT/CT abdomen pelvis w con* [id number] IMPRESSION: 1. Small hiatal hernia. 2. No cause for acute pain is identified. ? COMMENTS: Consistent with the [employer] [place] [employer]'s Incidental Findings Committee white paper (J Am Wanda Radiol 2018): Any incidental renal lesion less than 1 cm or classified as too small to characterize, or any incidental cystic renal lesion characterized as simple-appearing, is likely benign. No follow-up imaging is recommended for these lesions per consensus recommendations based on imaging criteria. XR/XR chest 1V portable [id number] IMPRESSION: 1. Mild cardiomegaly. 2. No acute disease. A&P Assessment and plan (1) Fever and chills: Patient presenting today with fever and chills of 10 days duration with overall unrevealing work-up thus far. Negative results summarized as above in H&P. Differentials for her ongoing symptoms at this time remains broad, however suspect viral versus tickborne etiology given presence of atypical lymphocytes on differential today and mildly deranged LFTs nonspecific nonspecific rash over her back. ,-check tick panel, respiratory viral panel, blood culture, urine histoplasma antigen, hepatitis serologies, urine Legionella antigen and monospot. Unlikely CMV given patient not otherwise immunocompromised. Checking for legionnaires disease given hyponatremia mildly deranged LFTs and dry cough. check CT chest given persistence of dry cough which together with deranged LFTs may be patient care representative of an atypical pneumonia. Alternate possibility is a asthma exacerbation by recent viral illness. Given persisting headache and nausea, cannot exclude possibility of viral meningismus versus meningitis. Patient offered lumbar puncture, however hesitant to proceed at this time. We will give a presumptive trial of doxycycline 100 mg p.o. twice daily for possibility of tick associated illness and monitor for response. Check TSH to evaluate for possibility of subacute thyroiditis. Noninfectious differentials include giant cell arteritis given headache, age more than 50 and elevated inflammatory markers. Can consider temporal artery biopsy if peripheral work-up remains nonrevealing. no lymphadenopathy on exam, CT abdomen pelvis without evidence of malignancy, however noted mildly elevated atypical lymphocytes on automated differential. Will check peripheral smear for abnormal cell lines. Status: Acute Attestations Medical Necessity Statement*: Anticipate less than 2 midnight admission for evaluation of fever chills with unclear source thus far. Coding Level of Care Code Acute Recruitment Assistant for [facility] Diagnoses Fever and chills R50.9
[2022-03-29 07:33] LABS: LAB Peripheral Smear Sent for Review
[2022-03-29 07:51] LABS: Monoscreen Negative (Negative)
--- NOTE | 2022-03-29 08:45 | US_ITS ---
WS: [id number] RIGHT UPPER QUADRANT ULTRASOUND HISTORY: looking for septate septated versus hydatid cyst COMPARISON: CT 03/29/2022, 09/10/2019 Liver: 15.6 cm in length. Liver is top normal size with mild diffuse hepatic steatosis. No cyst or cy stic masses. No bile duct dilatation. Portal Vein: Normal hepatopetal flow with monophasic waveform. Gallbladder: Status post cholecystectomy. CBD: 0.4 cm Pancreas: Normal size and echogenicity. Right kidney: 11.9 cm in length. Normal size and echogenicity. No hydronephrosis or mass. Aorta and IVC: Unremarkable abdominal aorta and IVC. No ascites. US/US liver [id number] IMPRESSION: 1. Top normal size liver with no cysts. 2. Mild diffuse hepatic steatosis. 3. Prior cholecystectomy.
--- NOTE | 2022-03-29 09:45 | PC.CHAP ---
Pastoral Care Encounter/Spiritual Assessment Type of Contact [] Declined spa therapist visit [] Patient/Family/Request visit [] Outpatient visit [] Follow-up visit [] Physician referral [] Code/Alert [x] Routine visit [] Staff referral [] Actively dying [] Patient sleeping [] Family support [] [] Out of room [] Palliative care [] [] Receiving care in room [] Pre-surgical visit [] Trauma [] Long length of stay [] ICU visit [] Other: Relational/Emotional Strength [x] Patient feels connected with others/family/visitors/staff [] Distress [] Loneliness/isolation [] Abandonment Spirituality of Patient [x] Person of Pauline [] Attends Lutheran of their Pauline []x Believes in Prayer [] Reads Bible or Taoism materials [] There are Spiritual issues to be addressed Tank Driver Interventions [x] Prayer [x] Active listening [x] Non-anxious presence [x] Spiritual/emotional support [] Crisis/trauma care [x] Spiritual counseling [] Bereavement support [] Provided bereavement packet [] Provided Bible/devotional materials [] Provided toy/stuffed animal, coloring book to patient or family member [] Provided Communion [] Anointing/[place] [] Salvation [x] Completed spiritual assessment [] Other: Impact on Illness or Injury [] Angry [] Fearful [] Anxious [] Often cries [] Exhaustion [] Unable to work [] Unable to attend temple [] Unable to walk/stand [] Unable to read [] Unable to drive [] Unable to eat/drink [] Unable to sleep [] Unable to be with family [] Patient intubated [] Other: Summary Time spent with patient 10 min
[2022-03-29] MEDS: doxycycline 100 mg Tablet PO ×2 (10:12→18:05)
--- NOTE | 2022-03-29 10:32 | PM.MISC ---
Miscellaneous Note Note: Patient this morning was examined and coming out of the bathroom She is feeling lethargic and weak Patient is stating that she has been having headache for the last 2 weeks and fever started at the same time No blurry vision No neck pain She also has abdominal cramps and nausea Nonfocal neuro exam Awake and alert Nontender abdomen Euvolemic Pleasant cooperative Complaining of fatigue and lethargy S1, S2 No signs of murmur No signs of meningitis or encephalitis No scalp tenderness No blurry vision Assessment and plan Patient has hyponatremia abnormal liver enzymes She has 3 dogs, I would like to rule out hydatid cyst, requested liver ultrasound to look for septated cyst Continue doxycycline, awaiting tick panel Did speak with Dr. Cantu this morning I have requested TAI, Sjogren, autoimmune work-up Viral illness, tick bite Patient is stating that when she was in [place] she only went into; once She is full code Cardiac diet DVT prophylaxis Lovenox I do not see any neurological deficits, if her fever and headache gets worse we might do cranial imaging to rule out venous thrombosis Lumbar puncture?
--- NOTE | 2022-03-29 10:35 | FL_ITS ---
WS: [id number] LUMBAR PUNCTURE CLINICAL INFORMATION: FUO COMPARISON: None. TECHNIQUE: Informed consent: The procedure and its potential risk and complications were discussed with the kena ent. Verbal and written consent was obtained. Timeout: A timeout was performed to confirm correct patient, procedure, and site. Patient was prepped and draped in the usual sterile fashion. Lidocaine 1% was used for local anesthes ia. Utilizing fluoroscopic guidance, a 3.5 inch 22-gauge spinal needle was advanced into the subarach noid space at L4-L5 via LEFT oblique sublaminar approach. Free flow of clear CSF was obtained. 8 cc o f CSF was collected and sent the lab for further analysis. FLUOROSCOPIC TIME: 1.6 # of spot films: 1 FL/FL guided lumbarpunc dx* [id number] IMPRESSION: Fluoroscopically guided lumbar puncture. 8 cc of clear CSF obtained. No immedia te complications
[2022-03-29 11:19] LABS: Procalcitonin 0.52 ng/mL (0-0.5)
[2022-03-29] MEDS: ketorolac 30 mg/mL INJ 15 MG IVP (11:30)
[2022-03-29] MEDS: acetaminophen 325 mg Tablet PO ×3 (13:34→22:29)
[2022-03-29 14:00] LABS: Free T4 Free Thyroxine 1.28 ng/dL (0.82-1.77); Thyroid Stimulating Hormone 7.84 uIU/mL (0.27-4.20)
[2022-03-29 14:22] LABS: CSF Mononuclear # 0.001 10^3/uL (50-90); Mononuclear WBC CSF % 50 % (50-90); Polynuclear Cells ,CSF # 0.001 10^3/uL (0-10); Polynuclear WBC CSF % 50 % (0-10); Red Blood Cell CSF 0 10^3/uL (0-0); White Blood Cell CSF 2 /uL (0-5)
[2022-03-29 14:31] LABS: Appearance CSF CLEAR (CLEAR); Color CSF COLORLESS (COLORLESS)
[2022-03-29 14:38] LABS: Glucose CSF 54 mg/dL (40-70); Total Protein CSF 27 mg/dL (15-45)
[2022-03-29 16:13] LABS: Cyto Order Verification No Order
[2022-03-29] MEDS: calcium carbonate 500 mg Chew Tablet PO (22:29)
[2022-03-30] VITALS (9 sets, daily range): BP systolic 102–116; BP diastolic 65–78; PULSE 70–80; RESP 16–17; TEMP 36.3–37; O2SAT 95–97
[2022-03-30 04:40] LABS: Add Urine Microscopic? NO; Charge for UA Resulting for Rev
[2022-03-30] MEDS: acetaminophen 325 mg Tablet PO ×2 (04:40→13:19)
[2022-03-30 04:46] LABS: Bilirubin Urine Neg (Negative); Blood Urine Neg (Negative); Glucose Urine UA Norm (Normal); Ketones Urine Negative (Negative); Leukocyte Esterase Urine Negative (Negative); Nitrate Urine Negative (Negative); Protein Urine Neg (Negative); Urine Appearance Clear (CLEAR); Urine Color Yellow (Yellow); Urobilinogen Urine Neg (Negative); pH Urine 6 (5-7)
[2022-03-30 05:53] LABS: Basophils % 0.8 %; Eosinophils % 0.4 %; Hematocrit 37.8 % (37.0-47.0); Hemoglobin 12.2 g/dL (11.5-15.3); Lymphocytes % 41.4 %; Mean Corpuscular HGB Conc 32.3 g/dL (30.0-36.0); Mean Corpuscular Hemoglobin 28.8 pg (28.0-34.0); Mean Corpuscular Volume 89.4 fl (81-99); Mean Platelet Volume 9.1 fL (7.4-10.4); Monocytes # 0.3 10^3/uL (0.2-0.9); Monocytes % 12.7 %; Neutrophils # 1.01 10^3/uL (1.8-7.7); Neutrophils % 42.6 %; Nucleated Red Blood Cells % 0 %; Platelet Count 139 10^3/cmm (130-400); Red Blood Count 4.23 10^6/uL (4.1-5.3); Red Cell Distribution Width 13.3 % (12.1-15.1); White Blood Count 2.4 10^3/uL (4.0-10.0)
[2022-03-30 06:23] LABS: Alanine Aminotransferase 112 U/L (0-33); Albumin Level 3.5 g/dL (3.5-5.2); Alkaline Phosphatase 155 IU/L (35-105); Anion Gap 10.8 (5-19); Aspartate Amino Transferase 80 U/L (0-32); Blood Urea Nitrogen 16 mg/dL (8-23); C Reactive Protein 67.7 mg/L (0.0-4.9); Calcium 8.8 mg/dL (8.5-10.5); Carbon Dioxide 29 mmol/L (22-29); Chloride 100 mmol/L (98-107); Globulin 2.6 g/dL (1.3-4.6); Glucose 104 mg/dL (65-115); Osmolality Calculated 283 mOsm/kg (285-295); Potassium 3.8 mmol/L (3.5-5.1); Sodium 136 mmol/L (136-145); Total Bilirubin 0.9 mg/dL (0.15-1.2); Total Protein 6.1 g/dL (6.6-8.7)
[2022-03-30 06:46] LABS: Slide Review Slide Review Perform
[2022-03-30] MEDS: amlodipine 5 mg Tablet PO (08:03)
[2022-03-30] MEDS: doxycycline 100 mg Tablet PO ×2 (08:03→18:27)
[2022-03-30 08:14] LABS: Erythrocyte Sedimentation Rate 19 mm/hr (0-15)
[2022-03-30 10:10] LABS: Estmated Average Glucose 111; Hemoglobin A1C 5.5 % (4.0-6.0)
[2022-03-30] MEDS: ipratropium-albuterol 3 mL Neb INHALATION (10:45)
[2022-03-30] MEDS: calcium carbonate 500 mg Chew Tablet PO (13:23)
--- NOTE | 2022-03-30 13:40 | P.PN_ITS ---
Subjective Subjective: Morning patient is clinically feeling better, she is was complaining of tense muscle in her neck No signs of meningitis Chronic suppurative skin signs both negative Afebrile today Low-grade fever noted yesterday No scalp tenderness or headache complaining of frozen shoulders Vitals/I&O/Wt Last Vital Signs Temp 98.4 F 03/30/22 11:36 Pulse 70 03/30/22 11:36 Resp 16 03/30/22 11:36 BP 116/78 03/30/22 11:36 Pulse Ox 97 03/30/22 11:36 O2 Del Method 03/30/22 11:36 03/29/22 03/30/22 03/30/22 22:59 06:59 14:59 Intake Total 120 / 120 240 / 240 Output Total 300 / 300 Balance 120 / 120 -300 / -180 240 / 240 Weight last 48 hrs Weight 92.986 kg Physical Exam Narrative: Clinically patient is doing better No signs of meningitis or encephalitis No scalp tenderness No blurry vision Nonfocal neuro exam No significant skin rash Abdomen soft S1, S2 Saturating well on room air Nonfocal neuro exam Pleasant and cooperative is at the bedside Kerning's i and Brudzinski sign negative EOMI, PERRLA Data : 03/30/22 04:42 03/30/22 04:42 Micro: Microbiology 03/29/22 12:00 Gram Stain - Final Cerebrospinal Fluid CSF Culture - Preliminary 03/29/22 09:42 Blood Culture - Preliminary Blood NEGATIVE TO DATE 03/29/22 08:32 Blood Culture - Preliminary Blood NEGATIVE TO DATE 03/30/22 04:30 Legionella Urinary Antigen - Final Urine,Voided A&P Assessment and plan (1) Fever and chills: Status: Acute (2) Headache: Status: Acute (3) Acute viral syndrome: Status: Acute (4) Hyponatremia: Status: Acute (5) Lichen sclerosus: Status: Acute (6) HTN (hypertension), benign: Status: Acute Plan Clinically patient is doing better My differential would include autoimmune disease, autoimmune hepatic disease, polymyalgia rheumatica however ESR is only 19 no concern for giant cell arteritis for now Fever of unknown origin No active source has been identified TAI, tick panel pending I would be reluctant to add steroids for now Liver enzymes slightly worsened Nonicteric I have requested antimitochondrial antibody test as well I have requested patient to follow-up with a electronic drafter outpatient Hemoglobin A1c is unremarkable I would discharge her if she remains fever free for 48 hours Continue doxycycline No signs of meningitis or encephalitis For her neck stiffness I will give her Xanax and muscle relaxant No active emesis, diarrhea Patient looks euvolemic She is full code Currently on cardiac diet CSF panel unremarkable MY concern for aseptic meningitis is also low Lyme disease, Leptospira histoplasmosis test pending She still experiencing dry cough she has been taking lisinopril at home, I would like to discontinue lisinopril for now Had extensive discussion with the patient and her they are in agreement with the active plan, all questions were answered to the satisfaction For her fever avoid Tylenol, we can use ketorolac I am not adding anti- inflammatory medication for now because I want nurses to notify the MD if she spikes fever Attestations Medical Necessity Statement*: Probably discharge on Friday Time Spent in Patient Care: 30 Coding Level of Care Code Acute Paintless Dent Repair Technician for Chg Fwd Diagnoses Fever and chills R50.9 Headache R51.9 Acute viral syndrome B34.9 Hyponatremia E87.1 Lichen sclerosus L90.0 HTN (hypertension), benign I10
[2022-03-30] MEDS: ALPRAZolam 0.5 mg Tablet 0.25 MG PO (19:51)
[2022-03-30] MEDS: cyclobenzaprine 10 mg Tablet PO (19:51)
[2022-03-30] MEDS: enoxaparin 40 mg/0.4 mL Syringe SUBCUT (20:00)
[2022-03-31 04:00] VITALS: BP 119/78; PULSE 80; RESP 16; TEMP 36.7; O2SAT 95
[2022-03-31 04:58] LABS: Basophils % 0.4 %; Eosinophils % 0.4 %; Hemoglobin 12.1 g/dL (11.5-15.3); Lymphocytes # 1.3 10^3/uL (0.8-4.8); Mean Corpuscular HGB Conc 33.6 g/dL (30.0-36.0); Mean Corpuscular Hemoglobin 28.9 pg (28.0-34.0); Mean Corpuscular Volume 85.9 fl (81-99); Mean Platelet Volume 8.9 fL (7.4-10.4); Monocytes # 0.2 10^3/uL (0.2-0.9); Monocytes % 8.3 %; Neutrophils # 1.06 10^3/uL (1.8-7.7); Neutrophils % 39.8 %; Nucleated Red Blood Cells % 0 %; Platelet Count 134 10^3/cmm (130-400); Red Blood Count 4.19 10^6/uL (4.1-5.3); Red Cell Distribution Width 13.3 % (12.1-15.1); White Blood Count 2.7 10^3/uL (4.0-10.0)
[2022-03-31 05:33] LABS: Alanine Aminotransferase 118 U/L (0-33); Albumin Level 3.4 g/dL (3.5-5.2); Alkaline Phosphatase 183 IU/L (35-105); Aspartate Amino Transferase 67 U/L (0-32); Blood Urea Nitrogen 17 mg/dL (8-23); C Reactive Protein 42.2 mg/L (0.0-4.9); Calcium 8.7 mg/dL (8.5-10.5); Carbon Dioxide 29 mmol/L (22-29); Chloride 102 mmol/L (98-107); Globulin 2.8 g/dL (1.3-4.6); Glomerular Filtration Rate 99.1 mL/min (90-130); Glucose 100 mg/dL (65-115); Osmolality Calculated 286 mOsm/kg (285-295); Sodium 137 mmol/L (136-145); Total Bilirubin 0.7 mg/dL (0.15-1.2); Total Protein 6.2 g/dL (6.6-8.7)
[2022-03-31 05:45] LABS: Slide Review Slide Review Perform
[2022-03-31] MEDS: doxycycline 100 mg Tablet PO ×2 (07:54→18:25)
[2022-03-31] MEDS: acetaminophen 325 mg Tablet PO ×2 (07:54→19:52)
[2022-03-31] MEDS: amlodipine 5 mg Tablet PO (07:55)
[2022-03-31 08:00] VITALS: BP 119/78; PULSE 74; RESP 18; TEMP 36.8; O2SAT 98
[2022-03-31 12:00] VITALS: BP 110/77; PULSE 78; RESP 16; TEMP 36.8; O2SAT 93
--- NOTE | 2022-03-31 13:23 | PM.PN ---
Subjective Subjective: Patient is stating that she woke up this morning after getting Xanax last night, she did not wake up all night Afebrile I will get CT head Work-up is still pending We did examine her skin from top to bottom, examined her skin in the bathroom No ticks were found She is still complaining abdominal cramps, passing flatus, she is on room air, afebrile Today I have started steroids Vitals/I&O/Wt Last Vital Signs Temp 98.2 F 03/31/22 08:00 Pulse 74 03/31/22 08:00 Resp 18 03/31/22 08:00 BP 119/78 03/31/22 08:00 Pulse Ox 98 03/31/22 08:00 O2 Del Method 03/31/22 08:00 03/30/22 03/31/22 03/31/22 22:59 06:59 14:59 Intake Total 560 / 560 Output Total 150 / 600 Balance -150 / -360 560 / 560 Physical Exam Narrative: Patient is euvolemic No signs of meningitis or encephalitis No tick bites No skin rash Abdomen is soft to palpate Satting well on room air Lungs are clear Nonfocal neuro exam S1, S2 Pleasant and cooperative Data : 03/31/22 04:30 03/31/22 04:30 Micro: Microbiology 03/29/22 12:00 Gram Stain - Final Cerebrospinal Fluid CSF Culture - Preliminary 03/29/22 09:42 Blood Culture - Preliminary Blood NEGATIVE TO DATE 03/29/22 08:32 Blood Culture - Preliminary Blood NEGATIVE TO DATE A&P Assessment and plan (1) Fever and chills: Status: Acute (2) Headache: Status: Acute (3) Acute viral syndrome: Status: Acute (4) Headache: Status: Acute (5) Hyponatremia: Status: Acute Plan Patient came in with fever, abnormal LFTs, since initiation of doxycycline no significant fever I will continue doxycycline for now I will request CT head as she has been complaining of headache quite frequently CSF not consistent with meningitis My suspicion is also low for aseptic meningitis at this point She is not confused no signs of meningismus No blurry vision Scalp is not tender ESR is low She has been afebrile I have started steroids today for her worsening LFTs I recommended patient to follow-up with a serging machine operator automatic in [place] We will repeat her CBC and CMP in 3 days, discharge her on Friday No tick bites at all on detailed physical exam done by her Monitor on steroids She is full code Patient had question regarding vitamin B12 injection I do not think vitamin B12 has any role for her symptoms. She is full code Continue DVT prophylactic regimen Attestations Medical Necessity Statement*: Discharge tomorrow Time Spent in Patient Care: 30 Coding Level of Care Code Acute Emergency Medicine Physician Assistant for g Fwd Diagnoses Fever and chills R50.9 Headache R51.9 Acute viral syndrome B34.9 Headache R51.9 Hyponatremia E87.1
[2022-03-31 14:25] LABS: Ferritin 656 ng/mL (15-150)
[2022-03-31 14:46] LABS: Triglycerides 326 mg/dL (0-150)
[2022-03-31 15:47] VITALS: BP 128/82; PULSE 77; RESP 17; TEMP 36.8; O2SAT 93
[2022-03-31] MEDS: lidocaine 2% viscous 15 ML, aluminum-mag hydrox-simethicon 30 ML, sucralfate oral liq 1 GM PO (15:54)
[2022-03-31] MEDS: pantoprazole DR 40 mg Tablet PO (15:55)
[2022-03-31] MEDS: hyoscyamine ODT 0.125 mg Tablet 0.25 MG PO (15:55)
[2022-03-31 17:21] LABS: INR 0.97 (0.8-1.2)
[2022-03-31 17:22] LABS: Partial Thromboplastin Time 33.1 SECONDS (23.9-36.7)
[2022-03-31 17:24] LABS: D Dimer 1.72 ug/mIFEU (0-0.59)
[2022-03-31 17:27] LABS: Fibrinogen 377 mg/dL (174-498)
[2022-03-31 19:23] VITALS: BP 125/77; PULSE 81; RESP 18; TEMP 36.4; O2SAT 97
[2022-03-31 20:00] VITALS: BP 105/67; PULSE 72; PULSE 73; RESP 17; RESP 20; TEMP 36.4; O2SAT 96
[2022-03-31] MEDS: enoxaparin 40 mg/0.4 mL Syringe SUBCUT (20:00)
[2022-03-31] MEDS: ondansetron 2 mg/ML SDV 2 mL 4 MG IVP (23:42)
[2022-04-01] VITALS: BP 105/67; PULSE 74; RESP 20; TEMP 36.4; O2SAT 96
[2022-04-01 04:00] VITALS: BP 104/69; PULSE 65; RESP 16; TEMP 36.2; O2SAT 93
[2022-04-01 04:21] LABS: Basophils % 0.3 %; Hematocrit 37.5 % (37.0-47.0); Lymphocytes # 1.3 10^3/uL (0.8-4.8); Lymphocytes % 32.5 %; Mean Corpuscular Hemoglobin 29.2 pg (28.0-34.0); Mean Corpuscular Volume 91.2 fl (81-99); Mean Platelet Volume 9.2 fL (7.4-10.4); Monocytes # 0.1 10^3/uL (0.2-0.9); Monocytes % 1.8 %; Neutrophils % 64.9 %; Nucleated Red Blood Cells % 0 %; Platelet Count 156 10^3/cmm (130-400); Red Blood Count 4.11 10^6/uL (4.1-5.3); Red Cell Distribution Width 13.5 % (12.1-15.1)
[2022-04-01 04:43] LABS: Slide Review Slide Review Perform
[2022-04-01 04:48] LABS: Alanine Aminotransferase 107 U/L (0-33); Albumin Level 3.6 g/dL (3.5-5.2); Alkaline Phosphatase 187 IU/L (35-105); Anion Gap 11.4 (5-19); Aspartate Amino Transferase 49 U/L (0-32); Blood Urea Nitrogen 19 mg/dL (8-23); Calcium 9.3 mg/dL (8.5-10.5); Carbon Dioxide 25 mmol/L (22-29); Chloride 103 mmol/L (98-107); Globulin 3.1 g/dL (1.3-4.6); Glomerular Filtration Rate 99.1 mL/min (90-130); Glucose 173 mg/dL (65-115); Osmolality Calculated 286 mOsm/kg (285-295); Potassium 4.4 mmol/L (3.5-5.1); Sodium 135 mmol/L (136-145); Total Bilirubin 0.5 mg/dL (0.15-1.2); Total Protein 6.7 g/dL (6.6-8.7)
[2022-04-01 07:11] VITALS: BP 135/87; PULSE 74; RESP 17; TEMP 36.5; O2SAT 95
[2022-04-01] MEDS: doxycycline 100 mg Tablet PO (08:23)
[2022-04-01] MEDS: pantoprazole DR 40 mg Tablet PO (08:23)
[2022-04-01] MEDS: amlodipine 5 mg Tablet PO (08:23)
[2022-04-01 09:44] VITALS: PULSE 72; RESP 16; O2SAT 98
--- NOTE | 2022-04-01 10:38 | P.DS_ITS ---
Discharge Providers Date of Admission: 03/30/22 14:21 Date of Discharge: April 01, 2022 Attending Provider at Admission: Marian Cantu MD Attending Provider at Discharge: Sonia Veronica MD Primary Care Provider: Rohan Syed DO Diagnoses at Discharge Discharge Diagnosis (1) Fever and chills: Status: Acute (2) Headache: Status: Acute (3) Acute viral syndrome: Status: Acute (4) Headache: Status: Acute (5) Hyponatremia: Status: Acute Reason for Visit Reason for Visit: Headache\N\V\Weakness Hospital Course Hospital Course 71-year-old female who presented to the hospital for chief complaint of fevers. She has been experiencing fever for the last 10 days before her arrival in the ER she was prescribed Bactrim for possible UTI by her PCP however that did not make any difference in her febrile episodes. Urine cultures were negative at the time of admission. Admitting physician was concerned about tickborne related illness. Peripheral smear did show [place] cells/atypical lymphocytes. Her abnormal liver enzymes were trending upwards until I started on steroids. She was also experiencing hot flashes. Her fever subsided with use of doxycycline within 48 hours, no skin rash or tick bites or ticks were noted on her skin, extensive/detailed skin exam was done by her . No lymphadenopathy. Her scalp is nontender ESR is 19, my concern for vasculitis is low however we have sent extensive work-up which has been sent to [facility]. It will take about 2 to more days to return. Meanwhile I will let her go home on Medrol pack, doxycycline. Check her LFTs after 3 days and then after 7 days. I have tried to contact Dr. Fernando, was not able to get in touch with him, left a voicemail. Patient does not have blurry vision, signs of meningoencephalitis. Her CSF panel was unremarkable. Even my suspicion for aseptic meningitis is low. Autoimmune work-up is pending. Her extensive body imaging also unremarkable. Patient is stating that recently she suffered from shingles flareup, she also took vitamin B12 injection. I did tell her that she could very well have vital prodrome symptoms that is why we are looking at [place] cells on peripheral smear but for now continue steroids and doxycycline. If her liver enzymes are getting worse she should get evaluated by a director of student financial aid. Physical Exam Narrative: Patient is euvole lynn No signs of me ningitis or enceph alitis No tick bit es No skin rash Ab domen is soft to p alpate Satting wel l on room air Lung s are clear Nonfoc al neuro exam S1, S2 Pleasant and co operative Discharge Data Studies Completed and Pending Completed Studies During Hospitalization Category Date Time Status CT abdomen pelvis w con* [id number] Urgent Cat Scan 03/29/22 00:[address] chest wo con [id number] Routine Cat Scan 03/29/22 06:50 Completed CXRP [XR chest 1V portable [id number]] Stat Exams 03/29/22 02:31 Completed Fluoro guided lumbar puncture [FL guided lumbarpunc dx* Exams 03/29/22 10:35 Completed [id number]] Routine US liver [id number] Routine Ultrasound 03/29/22 08:45 Completed Pending at discharge Category Date Time Status AMA [Mitochondrial AB Screen] Routine Lab 03/30/22 17:57 Received TAI Profile Custom [[facility] TAI Profile] Routine Lab 03/29/22 09:42 Received TAI Screen w/ Reflex Routine Lab 03/29/22 09:42 Received Blood Culture Stat Lab 03/29/22 09:42 Results CMV IGG&IGM Panel AM LABS Lab 03/30/22 04:42 Received CSF Culture & Gram Stain Routine Lab 03/29/22 12:00 Results EBV Viral Capsid AB IGM Routine Lab 03/31/22 04:51 Received Ehrlichia Chaffeensis IGG,IGM Routine Lab 03/29/22 09:42 Received Histoplasma Quantitative AG Routine Lab 03/29/22 12:18 Received Interleukin 2 Receptor CD25 Routine Lab 03/31/22 15:20 Received Leptospira DNA,Qualitative PCR Routine Lab 03/29/22 09:42 Received Lymes Disease Antibodies CSF Routine Lab 03/29/22 12:00 Received Oligoclonal Bands IGG, CSF Routine Lab 03/29/22 12:00 Received Respiratory Viral Panel PCR Stat Lab 03/29/22 22:39 Received Tick Panel Stat Lab 03/29/22 01:24 Ordered Radiology Impressions Abdomen/Pelvis CT 03/29/22 00:37 IMPRESSION: 1. Small hiatal hernia. 2. No cause for acute pain is identified. COMMENTS: Consistent with the [employer]'s Incidental Findings Committee white paper (J Am Wanda Radiol 2018): Any incidental renal lesion less than 1 cm or classified as too small to characterize, or any incidental cystic renal lesion characterized as simple-appearing, is likely benign. No follow-up imaging is recommended for these lesions per consensus recommendations based on imaging criteria. Chest X-Ray 03/29/22 02:31 IMPRESSION: 1. Mild cardiomegaly. 2. No acute disease. Chest CT 03/29/22 06:50 IMPRESSION: 1. No pneumonia or adenopathy within the thorax. 2. Prior cholecystectomy. 3. Small hiatal hernia. 4. Nonobstructing 10 mm calcification upper pole LEFT kidney. Liver Ultrasound 03/29/22 08:45 IMPRESSION: 1. Top normal size liver with no cysts. 2. Mild diffuse hepatic steatosis. 3. Prior cholecystectomy. Lumbar Puncture Fluoroscopy 03/29/22 10:35 IMPRESSION: Fluoroscopically guided lumbar puncture. 8 cc of clear CSF obtained. No immediate complications Laboratory Results WBC 4.0 10^3/uL (4.0-10.0) 04/01/22 03:40 RBC 4.11 10^6/uL (4.1-5.3) 04/01/22 03:40 Hgb 12.0 g/dL (11.5-15.3) 04/01/22 03:40 Hct 37.5 % (37.0-47.0) 04/01/22 03:40 MCV 91.2 fl (81-99) D 04/01/22 03:40 MCH 29.2 pg (28.0-34.0) 04/01/22 03:40 MCHC 32.0 g/dL (30.0-36.0) 04/01/22 03:40 RDW 13.5 % (12.1-15.1) 04/01/22 03:40 Plt Count 156 10^3/cmm (130-400) 04/01/22 03:40 MPV 9.2 fL (7.4-10.4) 04/01/22 03:40 Neut % (Auto) 64.9 % 04/01/22 03:40 Lymph % (Auto) 32.5 % 04/01/22 03:40 [place] % (Auto) 1.8 % 04/01/22 03:40 Eos % (Auto) 0.0 % 04/01/22 03:40 Baso % (Auto) 0.3 % 04/01/22 03:40 Neut # (Auto) 2.60 10^3/uL (1.8-7.7) 04/01/22 03:40 Lymph # (Auto) 1.3 10^3/uL (0.8-4.8) 04/01/22 03:40 [place] # (Auto) 0.1 10^3/uL (0.2-0.9) L 04/01/22 03:40 Eos # (Auto) 0.0 10^3/uL (0.0-0.8) 04/01/22 03:40 Baso # (Auto) 0.0 10^3/uL (0.0-0.1) 04/01/22 03:40 Nucleated RBC % (auto) 0 % 04/01/22 03:40 Total Counted 100 (0-100) 03/28/22 23:50 Atypical Lymphs % 11.0 % (0-5) H 03/28/22 23:50 Absolute Neutrophils 2.6 10^3/cmm (1.4-6.5) 03/28/22 23:50 Segmented Neutrophils 51 % 03/28/22 23:50 Abs Segm Neuts (Man) 2.1 10/cmm (1.6-7.1) 03/28/22 23:50 Band Neutrophils 11.0 % 03/28/22 23:50 Abs Band Neuts (Man) 0.5 10^3/cmm (0.0-1.2) 03/28/22 23:50 Absolute Lymphocytes 1.3 10^3/cmm (1.2-3.4) 03/28/22 23:50 Lymphocytes (Manual) 21 % 03/28/22 23:50 Monocytes (Manual) 4.0 % 03/28/22 23:50 Absolute Monocytes 0.2 10^3/cmm (0.1-0.6) 03/28/22 23:50 Eosinophils (Manual) 0 % 03/28/22 23:50 Absolute Eosinophils 0.0 10^3/cmm (0.0-0.7) 03/28/22 23:50 Basophils (Manual) 0.0 % 03/28/22 23:50 Absolute Basophils 0.0 10^3/cmm (0.0-0.2) 03/28/22 23:50 Metamyelocytes 2.0 % 03/28/22 23:50 Nucleated RBCs # 0.0 /100WBC 04/01/22 03:40 Platelet Estimate Normal (Normal) 03/28/22 23:50 ESR 19 mm/hr (0-15) H 03/30/22 04:42 PT 13.20 SECONDS (12.1-14.9) 03/31/22 15:20 INR 0.97 (0.8-1.2) 03/31/22 15:20 APTT 33.1 SECONDS (23.9-36.7) 03/31/22 15:20 Fibrinogen 377 mg/dL (174-498) 03/31/22 15:20 Fibrin Degrad Products Pos, 10-40 ug/mL (NEG) H 03/31/22 15:20 D-Dimer 1.72 ug/mIFEU (0-0.59) H 03/31/22 15:20 Sodium 135 mmol/L (136-145) L 04/01/22 03:40 Potassium 4.4 mmol/L (3.5-5.1) 04/01/22 03:40 Chloride 103 mmol/L (98-107) 04/01/22 03:40 Carbon Dioxide 25 mmol/L (22-29) 04/01/22 03:40 Anion Gap 11.4 (5-19) 04/01/22 03:40 BUN 19 mg/dL (8-23) 04/01/22 03:40 Creatinine 0.6 mg/dL (0.5-0.9) 04/01/22 03:40 GFR Calculation 99.1 mL/min (90-130) 04/01/22 03:40 Glucose 173 mg/dL (65-115) H 04/01/22 03:40 Estimat Average Glucose 111 03/30/22 04:42 Hemoglobin A1c 5.5 % (4.0-6.0) 03/30/22 04:42 Calculated Osmolality 286 mOsm/kg (285-295) 04/01/22 03:40 Lactate 1.0 mmol/L (0.5-2.2) 03/28/22 23:50 Calcium 9.3 mg/dL (8.5-10.5) 04/01/22 03:40 Ferritin 656 ng/mL (15-150) H 03/31/22 04:51 Total Bilirubin 0.5 mg/dL (0.15-1.2) 04/01/22 03:40 AST 49 U/L (0-32) H 04/01/22 03:40 ALT 107 U/L (0-33) H 04/01/22 03:40 Alkaline Phosphatase 187 IU/L (35-105) H 04/01/22 03:40 C-Reactive Protein 42.2 mg/L (0.0-4.9) H 03/31/22 04:30 Total Protein 6.7 g/dL (6.6-8.7) 04/01/22 03:40 Albumin 3.6 g/dL (3.5-5.2) 04/01/22 03:40 Globulin 3.1 g/dL (1.3-4.6) 04/01/22 03:40 Triglycerides 326 mg/dL (0-150) H 03/31/22 04:30 Lipase 42 U/L (13-60) 03/28/22 23:50 Procalcitonin 0.52 ng/mL (0-0.5) H 03/29/22 03:10 TSH 7.84 uIU/mL (0.27-4.20) H 03/29/22 03:19 Free T4 1.28 ng/dL (0.82-1.77) 03/29/22 03:19 Urine Color Yellow (Yellow) 03/30/22 04:30 Urine Appearance Clear (CLEAR) 03/30/22 04:30 Urine pH 6 (5-7) 03/30/22 04:30 Ur Specific [place] 1.010 (1.005-1.030) 03/30/22 04:30 Urine Protein Neg (Negative) 03/30/22 04:30 Urine Glucose (UA) Norm (Normal) 03/30/22 04:30 Urine Ketones Negative (Negative) 03/30/22 04:30 Urine Blood Neg (Negative) 03/30/22 04:30 Urine Nitrate Negative (Negative) 03/30/22 04:30 Urine Bilirubin Neg (Negative) 03/30/22 04:30 Urine Urobilinogen Neg mg/dL (Negative) 03/30/22 04:30 Ur Leukocyte Esterase Negative (Negative) 03/30/22 04:30 CSF Appearance Clear (CLEAR) 03/29/22 12:00 CSF Color Colorless (COLORLESS) 03/29/22 12:00 CSF WBC 2 /uL (0-5) 03/29/22 12:00 CSF RBC 0 10^3/uL (0-0) 03/29/22 12:00 CSF Mononuclear # Auto 0.001 10^3/uL (50-90) L 03/29/22 12:00 CSF Mononuclear WBCs % 50 % (50-90) 03/29/22 12:00 CSF Polynuclear WBCs # 0.001 10^3/uL (0-10) 03/29/22 12:00 CSF Polynuclear WBCs % 50 % (0-10) H 03/29/22 12:00 CSF Glucose 54 mg/dL (40-70) 03/29/22 12:00 CSF Total Protein 27 mg/dL (15-45) 03/29/22 12:00 Monoscreen Negative (Negative) 03/28/22 23:50 Vitals Last Vital Signs Temp 97.7 F 04/01/22 07:11 Pulse 72 04/01/22 09:44 Resp 16 04/01/22 09:44 BP 135/87 04/01/22 07:11 Pulse Ox 98 04/01/22 09:44 O2 Del Method 04/01/22 09:44 O2 Flow Rate 96 03/31/22 19:23 Discharge Plan Discharge Patient Disposition: Home Condition: Stable Prescriptions: New Medrol (Saw) 4 mg tablets,dose pack 4 mg PO DAILY Qty: 21 0RF doxycycline hyclate 100 mg tablet 100 mg PO BID 7 Days Qty: 14 0RF Continued albuterol sulfate [ProAir HFA] 90 mcg/actuation HFA aerosol inhaler 1 inh INHALATION QID PRN (Reason: Shortness Of Breath) clobetasol 0.05 % ointment 1 applic topical BID PRN (Reason: lichen sclerosis ) Qty: 30 1RF Rx Instructions: USE DIRECTED lisinopril-hydrochlorothiazide 10-12.5 mg tablet 1 tab PO DAILY promethazine 25 mg tablet 25 mg PO Q6H PRN (Reason: nausea and vomiting) Qty: 20 0RF metoclopramide HCl [Reglan] 10 mg tablet 10 mg PO Q6H PRN (Reason: nausea and vomiting) Qty: 20 0RF Held acyclovir 800 mg tablet 800 mg PO DAILY PRN (Reason: Cold Sores) Hold Instructions: Resume on 04/08/22. Discontinued hydrochlorothiazide 12.5 mg tablet 12.5 mg PO DAILY PRN (Reason: edema) Qty: 30 2RF cephalexin 500 mg capsule 500 mg PO QID 7 Days Qty: 28 0RF Discharge Orders: Discharge Order (Routine); Ordered 04/01/22 Ordered By: Sonia Veronica Other Ambulatory Orders: Comprehensive Metabolic Panel (Routine) Timeframe: 1 Week Facility: [facility] - Location: Lab - Main Lab Ordered By: Sonia Veronica Comprehensive Metabolic Panel (Routine) Timeframe: 3 Days Facility: [facility] - Location: Lab - Main Lab Ordered By: Sonia Veronica Referrals: Duarte Nam MD [Referring] - 1 month (sending referral) Rohan Syed DO [Primary Care Provider] - 04/04/22 2:45 pm Discharge Diet: Regular Discharge Activity: Increase activity as tolerated Patient Instructions: Doxycycline (By mouth), Methylprednisolone (By mouth), Headache, Opioid Safety Activity Restrictions/Additional Instructions: I am giving you 2 scripts to get your liver function test, You can do liver function test after 3 days and second test as a follow-up after a week when you are done with the steroids and doxycycline course You were treated for acute viral syndrome, peripheral smear showed atypical lymphocytes, which could be related to viral infection such as EBV, infectious mono, we have sent all the test to [facility] which will take 2-3 more days to co me back, I will personally update you with the results. Meanwhile please finish 7 days of steroids and doxycycline. Please do not take acyclovir for at least a week. Discharge Attestations Time Spent in Discharge Care*: less than 30 min Quality Metrics Clinical Quality Measures [ No reported AMI, CVA or VTE this stay] Coding Level of Care Code Acute Chg FW DC note Diagnoses Fever and chills R50.9 Headache R51.9 Acute viral syndrome B34.9 Headache R51.9 Hyponatremia E87.1
[2022-04-01 11:01] VITALS: BP 135/87; PULSE 72; RESP 16; TEMP 36.5; O2SAT 98
[2022-04-01 12:00] VITALS: BP 119/81; PULSE 74; RESP 17; TEMP 36.4; O2SAT 96
[2022-04-01 12:38] LABS: Anti-Double Strand DNA AB <1 IU/mL; Jo-1 Antibody <1.0 NEG AI (<1.0 NEG); SM/RNP Antibodies <1.0 NEG AI (<1.0 NEG); SS-B/LA IGG <1.0 NEG AI (<1.0 NEG); Scleroderma Ab(Scl-70) Ab <1.0 NEG AI (<1.0 NEG); Ss-A/Ro Igg <1.0 NEG AI (<1.0 NEG)
[2022-04-01 14:03] LABS: Lyme AB Screen <0.90 index
[2022-04-01 14:23] LABS: Cytomegalovirus Antibody (IGG) >10.00 U/mL
[2022-04-02 12:03] LABS: Leptospira DNA QL NOT DETECTED; Leptospira Source BLOOD
[2022-04-02 12:48] LABS: Anti-Nuclear Antibody Pattern Nuclear, Centromere; Anti-Nuclear Antibody Screen POSITIVE (NEGATIVE)
[2022-04-02 13:03] LABS: EBV Viral Capsid AB IGM <36.00 U/mL
[2022-04-03 16:08] LABS: Adenovirus Not Detected (Not Detected); Human Metapneumovirus Not Detected (Not Detected); Human Parainflu Virus 1 Not Detected (Not Detected); Human Parainflu Virus 2 Not Detected (Not Detected); Human Parainflu Virus 3 Not Detected (Not Detected); Human Rsv A Not Detected (Not Detected); Influenza A Not Detected (Not Detected); Influenza B Not Detected (Not Detected); Rhinovirus/Enterovirus Not Detected (Not Detected)
--- NOTE | 2022-04-03 16:11 | PM.MISC ---
Miscellaneous Note Note: I did speak with Dr. Cantu who recommended CMV DNA test I also notified patient, I asked her not to take steroids or doxycycline She has an appointment with Dr. Drake tomorrow Dr. Cantu stating that she probably will call her PCP tomorrow to get that test done At this point patient is stating that she is feeling slightly better but not back to normal, she has been experiencing lethargy, fatigue and mild headache. No fever at home.
[2022-04-03 18:34] LABS: Lyme Disease AB (IGG),IBL NO BANDS DETECTED; Lyme Disease AB (IGM), IBL NO BANDS DETECTED
[2022-04-03 18:47] LABS: Histoplasma Antigen (Quant) NONE DETECTED; Histoplasma Antigen Interpreta NEGATIVE; Histoplasma Antigen Specimen URINE
[2022-04-04 16:27] LABS: RMSF IGG DETECTED; RMSF IGM NOT DETECTED
[2022-04-06 22:08] LABS: E. Chaffeensis AB IGG <1:64; E. Chaffeensis AB IGM <1:20
[2022-04-25 09:27] LABS: Interleukin 2 Receptor CD25 14675 pg/mL (532-1891)
== END 2022-04-01 13:06 | disposition home or self-care (01) | DRG 866 ==
LOC: ER 03-29 02:55 → MEDSURG 03-29 03:26
PROVIDERS: Admitting Provider Student in an Organized Health Care Education/Training Program; Emergency Provider Emergency Medicine; PCP Family Medicine; Visit Provider Internal Medicine
DX: B25.9 Cytomegaloviral disease, unspecified (principal); E87.1 Hypo-osmolality and hyponatremia; R11.2 Nausea with vomiting, unspecified; L90.0 Lichen sclerosus et atrophicus; R74.8 Abnormal levels of other serum enzymes; R51.9 Headache, unspecified; I10 Essential (primary) hypertension; J45.909 Unspecified asthma, uncomplicated; Z86.19 Personal history of other infectious and parasitic diseases
CPT/HCPCS: 36415; 62328; 71045; 71250; 74177; 76705; 80053; 80503; 81003; 82728; 82945; 83036; 83516; 83605; 83690; 83916; 84145; 84157; 84238; 84439; 84443; 84478; 85007; 85025; 85362; 85378; 85384; 85610; 85651; 85730; 86038; 86140; 86225; 86235; 86308; 86617; 86618; 86665; 86666; 86757; 87040; 87070; 87075; 87205; 87385; 87449; 87633; 87798; 89050; 94640; 94760; 96361; 96372; 96374; 96375; 99285; G0378; J1200; J1650; J1885; J2270; J2405; J2765; J2920; J7030; Q9967

== ENCOUNTER → 2022-04-04 15:50 | Outpatient (BNVA) | payer MEDICARE, OTHER, SELFPAY | PROVIDERS: PCP Family Medicine; Referring Provider Internal Medicine; Visit Provider Student in an Organized Health Care Education/Training Program | DX: R74.01 Elevation of levels of liver transaminase levels (principal); B25.9 Cytomegaloviral disease, unspecified; R76.8 Other specified abnormal immunological findings in serum; R50.9 Fever, unspecified | CPT/HCPCS: 36415; 80053; 82977; 85651; 86140; 87496; 99204 ==

== ENCOUNTER → 2022-04-09 08:34 | Outpatient (BNVA) | payer MEDICARE, OTHER, SELFPAY | PROVIDERS: PCP Family Medicine; Visit Provider Surgery | DX: R51.9 Headache, unspecified (principal); R53.1 Weakness | CPT/HCPCS: 99203 ==

== ENCOUNTER → 2022-05-03 09:50 | Outpatient (BNVA) | payer MEDICARE, OTHER, SELFPAY | PROVIDERS: PCP Family Medicine; Visit Provider Internal Medicine Cardiovascular Disease | DX: R07.9 Chest pain, unspecified (principal); M79.89 Other specified soft tissue disorders; Z82.49 Family history of ischemic heart disease and other diseases of the circulatory system | CPT/HCPCS: 99213; 99214 ==

== ENCOUNTER → 2022-05-09 12:16 | Outpatient (BNVA) | payer MEDICARE, OTHER, SELFPAY | PROVIDERS: PCP Family Medicine; Visit Provider Family Medicine | DX: R79.89 Other specified abnormal findings of blood chemistry (principal); R51.9 Headache, unspecified | CPT/HCPCS: 80053; 82728; 83540; 84439; 84443; 85025 ==

== ENCOUNTER → 2022-05-27 08:51 | Outpatient (BNVA) | payer MEDICARE, OTHER, SELFPAY | PROVIDERS: PCP Family Medicine; Referring Provider Student in an Organized Health Care Education/Training Program; Visit Provider Internal Medicine Rheumatology | DX: M25.50 Pain in unspecified joint (principal); Z79.899 Other long term (current) drug therapy; R76.8 Other specified abnormal immunological findings in serum; M19.041 Primary osteoarthritis, right hand; M19.042 Primary osteoarthritis, left hand; M45.6 Ankylosing spondylitis lumbar region | CPT/HCPCS: 36415; 81001; 82570; 84156; 86200; 86235; 86431; 86800; 86812; 99204 ==

== ENCOUNTER 2022-05-28 10:57 | Outpatient (CLI) | payer MEDICARE, OTHER, SELFPAY ==
--- NOTE | 2022-05-28 11:28 | XR_ITS ---
WS: [email or web address] Exam: XR foot RT min 3V* [id number] Date/Time of Exam: 05/28/2022 11:40 AM Reason For Exam: Z79.899 - Other [facility] (current) drug therapy Comparison 02/01/2010. No fracture or dislocation noted. Mild DJD at the first MP joint. Normal soft tissues. XR/XR foot RT min 3V* [id number] IMPRESSION: 1. Minimal degenerative change at the first MP joint. No fracture or other sign ificant finding.
--- NOTE | 2022-05-28 11:28 | XR_ITS ---
WS: [email or web address] Exam: XR hand RT min 3V* [id number] Date/Time of Exam: 05/28/2022 11:40 AM Reason For Exam: Z79.899 - Other correction (current) drug therapy No fracture or dislocation. Minimal degenerative changes in the IP joints. Normal soft tissues. XR/XR hand RT min 3V* [id number] IMPRESSION: 1. Mild DJD of the IP joints. No fracture or other significant finding.
--- NOTE | 2022-05-28 11:28 | XR_ITS ---
WS: [email or web address] Exam: XR foot LT min 3V* [id number] Date/Time of Exam: 05/28/2022 11:40 AM Reason For Exam: Z79.899 - Other shelter (current) drug therapy Comparison 09/15/2018. No fracture or dislocation noted. Slight DJD at the first MP joint. Normal soft tissues. Tiny heel sp urs. XR/XR foot LT min 3V* [id number] IMPRESSION: 1. Minimal DJD at the first MP joint. No fracture or other significant finding.
--- NOTE | 2022-05-28 11:28 | XR_ITS ---
WS: [email or web address] Exam: XR hand LT min 3V* [id number] Date/Time of Exam: 05/28/2022 11:40 AM Reason For Exam: Z79.899 - Other prison (current) drug therapy No acute fracture or dislocation. Moderate degenerative change at the DIP joint of the thumb. No soft tissue foreign bodies are seen. XR/XR hand LT min 3V* [id number] IMPRESSION: 1. No fracture or dislocation. 2. 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
[2022-06-07 06:57] LABS: Interleukin 2 Receptor CD25 2748 pg/mL (532-1891)
== END 2022-05-28 10:58 | disposition home or self-care (01) ==
PROVIDERS: PCP Family Medicine; Visit Provider Internal Medicine Rheumatology
DX: C85.90 Non-Hodgkin lymphoma, unspecified, unspecified site (principal); R76.8 Other specified abnormal immunological findings in serum; M19.90 Unspecified osteoarthritis, unspecified site; Z79.899 Other long term (current) drug therapy; M19.042 Primary osteoarthritis, left hand; M19.041 Primary osteoarthritis, right hand
CPT/HCPCS: 36415; 73130; 73630; 84238

== ENCOUNTER → 2022-06-03 15:50 | Outpatient (BNVA) | payer MEDICARE, OTHER, SELFPAY | PROVIDERS: PCP Family Medicine; Visit Provider Family Medicine | DX: K92.1 Melena (principal) | CPT/HCPCS: 82270 ==

== ENCOUNTER → 2022-07-04 15:15 | Outpatient (BNVA) | payer MEDICARE, OTHER, SELFPAY | PROVIDERS: PCP Family Medicine; Visit Provider Nurse Practitioner Women's Health | DX: Z01.419 Encounter for gynecological examination (general) (routine) without abnormal findings (principal); L90.0 Lichen sclerosus et atrophicus; Q52.5 Fusion of labia | CPT/HCPCS: 87624 ==

== ENCOUNTER 2022-07-30 11:04 | Outpatient (CLI) | payer MEDICARE, OTHER, SELFPAY ==
--- NOTE | 2022-07-30 11:13 | MM_ITS ---
WS: [email or web address] BILATERAL SCREENING DIGITAL TOMOSYNTHESIS MAMMOGRAM WITH CAD HISTORY: SCREEN COMPARISON: 06/26/2020, 04/25/2020 and 10/02/2017, 04/10/2017 Bilateral CC and MLO views with tomosynthesis and synthetic mammography submitted. Computer aided det ection analyzed. Breast composition: There are scattered areas of fibroglandular density. No suspicious masses, microc alcifications or architectural distortion. There are a few scattered calcifications. MM/[place] [id number] IMPRESSION: BI-RADS: 2-Benign FOLLOW UP: 1 Year Follow-up
== END 2022-07-30 11:05 | disposition home or self-care (01) ==
LOC: RAD 11:08
PROVIDERS: PCP Family Medicine; Visit Provider Nurse Practitioner Women's Health
DX: Z12.31 Encounter for screening mammogram for malignant neoplasm of breast (principal)
CPT/HCPCS: 77063; 77067

== ENCOUNTER → 2022-09-03 09:14 | Outpatient (BNVA) | payer MEDICARE, OTHER, SELFPAY | PROVIDERS: PCP Family Medicine; Visit Provider Internal Medicine Rheumatology | DX: M25.579 Pain in unspecified ankle and joints of unspecified foot (principal); R76.8 Other specified abnormal immunological findings in serum; R79.89 Other specified abnormal findings of blood chemistry; R51.9 Headache, unspecified | CPT/HCPCS: 36415; 82085; 82550; 84238; 99214 ==

== ENCOUNTER 2022-09-05 09:08 | Outpatient (CLI) | payer MEDICARE, OTHER, SELFPAY ==
[2022-09-20 20:15] LABS: Interleukin 2 Receptor CD25 2715 pg/mL (532-1891)
== END 2022-09-05 09:09 | disposition home or self-care (01) ==
LOC: LAB 09:16
PROVIDERS: PCP Family Medicine; Visit Provider Internal Medicine Rheumatology
DX: M25.50 Pain in unspecified joint (principal); R76.8 Other specified abnormal immunological findings in serum
CPT/HCPCS: 36415; 84238

== ENCOUNTER 2022-12-02 20:00 | Outpatient (CLI) | payer MEDICARE, OTHER, SELFPAY | END 2022-12-02 20:01 | disposition home or self-care (01) | LOC: SLEEP 12-03 05:42 | PROVIDERS: PCP Family Medicine; Visit Provider Family Medicine | DX: G47.33 Obstructive sleep apnea (adult) (pediatric) (principal) | CPT/HCPCS: 95811 ==

== ENCOUNTER → 2023-01-09 14:15 | Outpatient (BNVA) | payer MEDICARE, OTHER, SELFPAY | PROVIDERS: PCP Family Medicine; Visit Provider Family Medicine | DX: R35.0 Frequency of micturition (principal) | CPT/HCPCS: 81000; 87077; 87086; 87184 ==

== ENCOUNTER 2023-02-05 13:16 | Outpatient (CLI) | payer MEDICARE, OTHER, SELFPAY ==
--- NOTE | 2023-02-05 13:31 | XR_ITS ---
WS: [email or web address] KUB, AP view, 02/05/2023 Clinical Data: HX OF NEPHROLITHIASIS Comparison: None. Findings: No abnormal intraabdominal masses or calcifications are seen. There is no dilatated small bowel or ev idence of obstruction. There are clips in the right upper quadrant from a cholecystectomy. There is a small amount of fecal material throughout the colon. XR/XR KUB [id number] Impression: Negative KUB.
== END 2023-02-05 13:17 | disposition home or self-care (01) ==
PROVIDERS: PCP Family Medicine; Visit Provider Urology
DX: Z87.442 Personal history of urinary calculi (principal)
CPT/HCPCS: 74018

== ENCOUNTER → 2023-04-11 09:08 | Outpatient (BNVA) | payer MEDICARE, OTHER, SELFPAY | PROVIDERS: PCP Family Medicine; Visit Provider Family Medicine | DX: I10 Essential (primary) hypertension (principal); K64.9 Unspecified hemorrhoids | CPT/HCPCS: 80053; 80061; 82043; 85025 ==

== ENCOUNTER → 2023-05-09 18:20 | Outpatient (BNVA) | payer MEDICARE, OTHER, SELFPAY | PROVIDERS: PCP Family Medicine; Visit Provider Nurse Practitioner | DX: R51.9 Headache, unspecified (principal); H65.92 Unspecified nonsuppurative otitis media, left ear | CPT/HCPCS: 87426 ==

== ENCOUNTER → 2023-07-14 18:17 | Outpatient (BNVA) | payer MEDICARE, OTHER, SELFPAY | PROVIDERS: PCP Family Medicine; Visit Provider Family Medicine | DX: M25.512 Pain in left shoulder (principal) | CPT/HCPCS: 73030 ==

== ENCOUNTER → 2023-08-14 16:59 | Outpatient (BNVA) | payer MEDICARE, OTHER, SELFPAY | PROVIDERS: PCP Family Medicine; Visit Provider Nurse Practitioner Women's Health | DX: Z01.419 Encounter for gynecological examination (general) (routine) without abnormal findings (principal); Z78.0 Asymptomatic menopausal state; N39.41 Urge incontinence; Q52.5 Fusion of labia; L90.0 Lichen sclerosus et atrophicus | CPT/HCPCS: 82306; 87624 ==

== ENCOUNTER → 2023-08-17 11:44 | Outpatient (BNVA) | payer MEDICARE, OTHER, SELFPAY | PROVIDERS: PCP Family Medicine; Visit Provider Emergency Medicine | DX: R39.9 Unspecified symptoms and signs involving the genitourinary system (principal); N30.01 Acute cystitis with hematuria | CPT/HCPCS: 81000 ==

== ENCOUNTER 2023-08-18 09:16 | Outpatient (CLI) | payer MEDICARE, OTHER, SELFPAY ==
--- NOTE | 2023-08-18 09:21 | MM_ITS ---
WS: [email or web address] BILATERAL SCREENING DIGITAL TOMOSYNTHESIS MAMMOGRAM WITH CAD HISTORY: Z12.31 - Encounter for screening mammogram for malignant ... COMPARISON: 07/30/2022, 06/26/2020 and 04/10/2017 Bilateral CC and MLO views with tomosynthesis and synthetic mammography submitted. Computer aided det ection analyzed. Breast composition: The breasts are heterogeneously dense, which may obscure small masses. No suspici ous masses, microcalcifications or architectural distortion. Scattered asymmetries within each breast and calcifications. Very similar in appearance to the 2017 exam. IMPRESSION: MM/[place] [id number] BI-RADS: 2-Benign FOLLOW UP: 1 Year Follow-up
== END 2023-08-18 09:17 | disposition home or self-care (01) ==
LOC: RAD 09:16
PROVIDERS: PCP Family Medicine; Visit Provider Family Medicine
DX: Z12.31 Encounter for screening mammogram for malignant neoplasm of breast (principal)
CPT/HCPCS: 77063; 77067

== ENCOUNTER 2023-08-19 15:10 | Outpatient (CLI) | payer MEDICARE, OTHER, SELFPAY ==
--- NOTE | 2023-08-19 15:30 | XR_ITS ---
WS: [id number] SCREENING DEXA SCAN [facility] CLINICAL INFORMATION: Z78.0 - Asymptomatic menopausal state COMPARISON: None. FINDINGS: The L1-L4 bone mineral density measures 1.050 g/cm2. This corresponds to a T score score of -1.1 and Z score of -0.5. Left femoral neck bone mineral density measures 0.928 g/cm2. This corresponds to a T score of -0.6 an d Z score of 0.1. Right femoral neck bone mineral density measures 0.927 g/cm2. This corresponds to a T score -0.6of an d Z score of 0.1. Mean femoral neck bone mineral density measures 0.927 g/cm2. This corresponds to a T score of -0.6 an d Z score of 0.1. IMPRESSION: Osteopenia lumbar spine. Normal bone mineralization femoral necks. Patient's FRAX calculated 10 year probability for major osteoporotic fracture is 13.9% and osteoporot ic hip fracture is 1.6%.
== END 2023-08-19 15:11 | disposition home or self-care (01) ==
LOC: RAD 15:10
PROVIDERS: PCP Family Medicine; Visit Provider Nurse Practitioner Women's Health
DX: Z78.0 Asymptomatic menopausal state (principal); M85.88 Other specified disorders of bone density and structure, other site
CPT/HCPCS: 77080

== ENCOUNTER 2024-01-10 21:36 | Emergency (ER) | payer MEDICARE, OTHER, SELFPAY ==
[2024-01-10 21:43] VITALS: BP 141/89; PULSE 82; RESP 18; TEMP 36.4; O2SAT 99; BMI 33.9
== END 2024-01-10 22:46 | disposition left against medical advice (07) ==
LOC: ER 21:45
PROVIDERS: Emergency Provider Family Medicine; PCP Family Medicine
DX: Z53.21 Procedure and treatment not carried out due to patient leaving prior to being seen by health care provider (principal)

== ENCOUNTER 2024-01-21 07:16 | Outpatient (CLI) | payer MEDICARE, OTHER, SELFPAY ==
--- NOTE | 2024-01-21 08:00 | CT_ITS ---
WS: [id number] CT ABDOMEN AND PELVIS WITH CONTRAST HISTORY: rlq pain TECHNIQUE: Imaging performed of the abdomen and pelvis with IV contrast. Single phase imaging of the abdomen. Coronal and sagittal reformats are submitted. All CT scans at [facility] use at [address] one of these dose optimization techniques: automated exposure control; mA and/or kV adjustment per patient size (includes targeted exams where dose is matched to clinical indication); or iterative re construction. IV CONTRAST: Omnipaque 350; 100 mL IV. Oral contrast: Yes. DLP: 798.31 mGy.cm COMPARISON: 03/29/2022 Lower thorax: Lung bases are clear. Heart is normal size. Small hiatal hernia. Liver/biliary system: Normal size liver. Previously described cyst is no longer evident. No bile duct dilatation. Gallbladder: Status post cholecystectomy. Pancreas: Normal size pancreas and pancreatic duct. No adjacent inflammation. Spleen: Normal size spleen. No mass or infarct. Adjacent splenule. Adrenal glands: Normal. Right kidney: Normal. Left kidney: Stable cortical cyst upper pole measures 1.6 cm. There is a mid additional cortical 0.5 mm cyst in the medial kidney. No obstruction. Aorta: Normal. Lymphadenopathy: None. Free fluid: None. GI tract: Normally distended stomach. No small bowel obstruction. Increased fecal retention in the RI GHT lower quadrant. There is constipation but no obstructive process. The appendix is normal. Abdominal wall: Unremarkable abdominal wall. No hernia. Pelvis: No free fluid or adenopathy within the pelvis. Bones: Unremarkable. CT/CT abdomen pelvis w con* [id number] IMPRESSION: 1. Normal appendix. 2. Position of the cecum and the ascending colon is similar to prior studies. There is mild fecal retention throughout the cecum and ascending colon but no o bstruction. 3. No ascites or adenopathy. 4. LEFT renal cysts.
[2024-01-21 08:40] LABS: Blood Urea Nitrogen 19 mg/dL (8-23)
[2024-01-21] MEDS: iohexol 300 mg/mL 100 mL Btl PO (08:49)
[2024-01-21] MEDS: iohexol 300 mg/mL 100 mL Btl IV (08:49)
== END 2024-01-21 07:17 | disposition home or self-care (01) ==
LOC: RAD 07:16
PROVIDERS: PCP Family Medicine; Visit Provider Family Medicine
DX: K59.00 Constipation, unspecified (principal); K44.9 Diaphragmatic hernia without obstruction or gangrene; Z98.890 Other specified postprocedural states; Q61.02 Congenital multiple renal cysts
CPT/HCPCS: 74177; 82565; 84520; Q9967

== ENCOUNTER 2024-02-05 09:04 | Outpatient (CLI) | payer MEDICARE, OTHER, SELFPAY ==
--- NOTE | 2024-02-05 09:30 | MM_ITS ---
WS: [id number] RIGHT 3D TOMOSYNTHESIS DIGITAL MAMMOGRAPHY WITH CAD CLINICAL INFORMATION: Right breast pain HISTORY: RIGHT breast pain COMPARISON: 08/18/2023 TECHNIQUE: 3 views of the right breast were obtained. FINDINGS: Scattered fibroglandular densities of the right breast. Focal asymmetric density upper outer RIGHT br east appears more prominent compared to prior studies. Ultrasound of this area is pending. Additional ultrasound be performed of the areas of pain and concern. ULTRASOUND BREAST RIGHT TECHNIQUE: Ultrasound right breast focused area of concern. CLINICAL INFORMATION: Right breast pain FINDINGS: Ultrasound RIGHT breast upper outer quadrant. No suspicious abnormalities. Ultrasound of the areas of pain demonstrates normal underlying parenchymal tissue. No cystic or solid lesions. No suspicious fi ndings. MM/[place] [id number] IMPRESSION: BI-RADS: 2-Benign FOLLOW UP: 1 Year Follow-up Recommend return to annual screening mammography.
--- NOTE | 2024-02-05 09:33 | US_ITS ---
WS: [id number] RIGHT 3D TOMOSYNTHESIS DIGITAL MAMMOGRAPHY WITH CAD CLINICAL INFORMATION: Right breast pain HISTORY: RIGHT breast pain COMPARISON: 08/18/2023 TECHNIQUE: 3 views of the right breast were obtained. FINDINGS: Scattered fibroglandular densities of the right breast. Focal asymmetric density upper outer RIGHT br east appears more prominent compared to prior studies. Ultrasound of this area is pending. Additional ultrasound be performed of the areas of pain and concern. ULTRASOUND BREAST RIGHT TECHNIQUE: Ultrasound right breast focused area of concern. CLINICAL INFORMATION: Right breast pain FINDINGS: Ultrasound RIGHT breast upper outer quadrant. No suspicious abnormalities. Ultrasound of the areas of pain demonstrates normal underlying parenchymal tissue. No cystic or solid lesions. No suspicious fi ndings. US/US breast RT limited* [id number] IMPRESSION: BI-RADS: 2-Benign FOLLOW UP: 1 Year Follow-up Recommend return to annual screening mammography.
== END 2024-02-05 09:05 | disposition home or self-care (01) ==
LOC: RAD 09:04
PROVIDERS: PCP Family Medicine; Visit Provider Family Medicine
DX: N64.4 Mastodynia (principal); R92.323 Mammographic fibroglandular density, bilateral breasts; N64.89 Other specified disorders of breast
CPT/HCPCS: 76642; 77061; G0279

== ENCOUNTER → 2024-05-10 10:47 | Outpatient (BNVA) | payer MEDICARE, OTHER, SELFPAY | PROVIDERS: PCP Family Medicine; Visit Provider Nurse Practitioner Family | DX: L30.4 Erythema intertrigo (principal); L70.0 Acne vulgaris; L73.8 Other specified follicular disorders; L82.1 Other seborrheic keratosis; D23.71 Other benign neoplasm of skin of right lower limb, including hip | CPT/HCPCS: 99204 ==

== ENCOUNTER 2024-08-01 05:25 | Emergency (ER) | payer MEDICARE, OTHER, SELFPAY ==
[2024-08-01 05:54] VITALS: BP 153/97; PULSE 74; RESP 16; TEMP 36.5; O2SAT 96; BMI 34.2
--- NOTE | 2024-08-01 06:14 | XRR_ITS ---
PROCEDURE INFORMATION: Exam: XR Soft Tissue Neck Exam date and time: 08/01/2024 6:38 AM Age: 73 years old Clinical indication: Mass, lump, or swelling in neck; Bilateral; Patient HX: C/O throat pain with swelling. ; Additional info: Throat pain and swelling TECHNIQUE: Imaging protocol: Radiologic exam of the soft tissues of the neck. COMPARISON: CT angio headneck* [id number] 03/25/2022 9:22 PM FINDINGS: Airway: Normal. No abnormal narrowing. Soft tissues: Normal. Normal epiglottis. Bones/joints: Unremarkable. XR/XR soft tissue neck [id number] IMPRESSION: No acute findings.
[2024-08-01 06:29] LABS: Basophils # 0.1 10^3/uL (0.0-0.1); Eosinophils # 0.2 10^3/uL (0.0-0.8); Eosinophils % 4.1 %; Hematocrit 43.4 % (36-47); Lymphocytes # 1.2 10^3/uL (0.8-4.8); Lymphocytes % 23.7 %; Mean Corpuscular HGB Conc 32.3 g/dL (30-55); Mean Corpuscular Hemoglobin 29.6 pg (27-33); Mean Corpuscular Volume 91.8 fl (85-98); Mean Platelet Volume 8.5 fL (7.4-10.4); Monocytes # 0.3 10^3/uL (0.2-0.9); Monocytes % 6.6 %; Neutrophils # 3.31 10^3/uL (1.8-7.7); Neutrophils % 64.4 %; Nucleated Red Blood Cells % 0 %; Platelet Count 184 10^3/cmm (157-399); Red Blood Count 4.73 10^6/uL (3.85-5.65); Red Cell Distribution Width 12.9 % (12.1-15.1); White Blood Count 5.14 10^3/uL (3.29-11.43)
[2024-08-01] MEDS: ketorolac 30 mg/mL INJ 15 MG IVP (06:33)
[2024-08-01] MEDS: dexamethasone 10 mg/mL INJ IVP (06:36)
[2024-08-01 06:49] LABS: Alanine Aminotransferase 15 U/L (0-33); Albumin Level 3.9 g/dL (3.5-5.2); Alkaline Phosphatase 96 U/L (35-105); Aspartate Amino Transferase 15 U/L (0-32); Blood Urea Nitrogen 21 mg/dL (8-23); Calcium 9.7 mg/dL (8.5-10.5); Carbon Dioxide 28 mmol/L (22-29); Chloride 104 mmol/L (98-107); Creatinine Clr Calc Pharmacy 75.3946; Globulin 2.1 g/dL (1.3-4.6); Glucose 112 mg/dL (65-115); Osmolality Calculated 288 mOsm/kg (285-295); Sodium 137 mmol/L (136-145); Total Bilirubin 0.5 mg/dL (0.15-1.2)
[2024-08-01 06:56] LABS: Rapid Strep A Test Negative (Negative)
[2024-08-01 08:03] VITALS: BP 125/90; PULSE 64; O2SAT 96
[2024-08-01 08:06] LABS: Bilirubin Urine Negative (Negative); Blood Urine 1+ (Negative); Glucose Urine UA Negative (Normal); Ketones Urine Negative (Negative); Leukocyte Esterase Urine 2+ (Negative); Nitrate Urine Positive (Negative); Protein Urine Trace (Negative); Urine Appearance Cloudy (CLEAR); Urine Color Yellow (Yellow); pH Urine 5.5 (5-7)
[2024-08-01 08:08] LABS: Add Urine Microscopic? YES; Bacteria Urine 4+ /hpf; Hyaline Casts Urine 2.26 /lpf; RBC Urine 0-2 /hpf (0-2); Squamous Epithelial Cell Urine 0-5 /hpf (0-5); WBC Urine >100 /hpf (0-5)
[2024-08-01 08:14] LABS: Add Urine Culture? Yes
--- NOTE | 2024-08-01 08:14 | ED_ITS ---
HPI - General Adult 2 General: Chief complaint: Upper Respiratory Infection Stated complaint: throat pain. feels drowning. cant clear throat Time Seen by Provider: 08/01/24 06:02 History of Present Illness: This patient is a 73 year old presenting with throat pain and feeling like she is choking. She reports that her throat felt scratchy last evening, and worsened throughout the night. She was not able to lay down because she feels like she can't clear her throat. She feels like everything in the back of her throat is swollen. She has not had anything like this before. No fever, unusual cough, runny nose. She does have a chronic cough related to lisinopril. She denies chest pain or shortness of breath. No allergies that she is aware of (other than seasonal). 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 She says that her tongue has been feeling sore for about 2 weeks. She has not started any new medications or treatments for that. On review of prior records she is noted to have had a positive TAI test in the past. She uses fluticasone nasal spray. Related Data Home Medications Medication Instructions Recorded Confirmed albuterol sulfate 90 mcg/actuation 1 puff inhalation QID PRN 08/01/24 08/01/24 aerosol inhaler (Ventolin HFA) Shortness Of Breath Or Wheezing fluticasone propionate 50 1 spray intranasal BID PRN 08/01/24 08/01/24 mcg/actuation nasal allergies spray,suspension (Flonase Allergy Relief) loratadine 10 mg tablet (Allergy 10 mg PO DAILY PRN allergies 08/01/24 08/01/24 Relief (loratadine)) Previous Rx's Medication Instructions Recorded hydrocortisone 1 %-pramoxine 1 % 1 applic MI QID PRN itching #10 04/11/23 rectal foam (Proctofoam HC) grams nystatin 100,000 unit/gram topical 1 applic topical BID #15 grams 04/17/23 ointment solifenacin 10 mg tablet (Vesicare) 10 mg PO DAILY #90 tabs 09/29/23 gabapentin 100 mg capsule 100 mg PO BID #60 caps 03/30/24 tizanidine 2 mg tablet 2 mg PO TID PRN muscle spasticity 05/12/24 #20 tabs diclofenac sodium 3 % topical gel 1 applic topical BID #100 grams 06/07/24 fosfomycin tromethamine 3 gram 1 packet PO Q3D UTI 2 doses #1 ea 08/01/24 oral packet Allergies Allergy/AdvReac Type Severity Reaction Status Date / Time hydroxyprogesterone Allergy skin Verified 03/30/24 14:26 [From Delalutin] irritation/itching at injection site nitrofurantoin Allergy ADR-Confusi Verified 03/30/24 14:54 [From Macrobid] on Review of Systems 2 ENMT: Reports: uvular edema PFSH ED 2 PFSH: Medical History MITCHELL (obstructive sleep apnea) Arthralgia of ankle Centromere antibody positive Polyarthralgia Positive TAI (antinuclear antibody) No pertinent past medical history neghx: dm,thyroid,dvt/pe PCP: Dr. Blue Family history of ischemic heart disease and other diseases of the circulatory system Lichen sclerosus Labia minora agglutination History of shingles HTN (hypertension), benign Asthma Surgical History Hx of shoulder surgery (~2018) L shoulder- ligament repair Hx of eye surgery (~05/2021) R eye---lens removal H/O removal of cyst Cyst removal from LEFT AXILLA cyst removal from left hand H/O: hysterectomy (2011) LAVH, OVARIES AND CERVIX SPARED-- WOOD H/O lithotripsy History of breast lump/mass excision left- benign H/O tubal ligation History of cholecystectomy History of tonsillectomy Family History Father Diabetes Heart disease Hypertension Stroke Brother Diabetes Heart disease Hypertension Stroke Mother Heart disease Hypertension Uterine cancer uterus dx at 88 y/o Breast cancer dx at 62 y/o Sister Heart disease Hypertension Colon cancer dx at 52 y/o Social History Smoking and tobacco/nicotine status: never used tobacco/nicotine Physical Exam 2 Const: COMMON NORMALS: no acute distress, patient oriented x3, no limitations and alert GENERAL APPEARANCE: cooperative and comfortable HENMT: HEAD & SCALP: normal to inspection FACE & SINUS: normal facial exam MOUTH: tongue abnormal (white patches - which do not scrape off on the lateral aspects of the top) THROAT: uvula midline, uvular edema and other (generalized, mild edema in the posterior pharynx) Eye: GENERAL EYE: appearance normal, both eyes and all related structures Neck/C-Spine: COMMON NORMALS: supple, no meningeal signs and no JVD Chest: COMMONS NORMALS: normal inspection of the chest Resp: COMMON NORMALS: normal respiratory effort, No use of accessory muscles and clear to auscultation bilaterally AUSCULTATION: clear to auscultation bilaterally Cardio: COMMON NORMALS: no JVD, regular rate, regular rhythm and No murmurs present (Cardio) RATE: regular rate RHYTHM: regular rhythm GI: COMMON NORMALS: Normal to inspection, nondistended, normoactive bowel sounds present, Soft to palpation and non-tender INSPECTION: Yes normal to inspection AUSCULTATION: Yes normoactive bowel sounds PALPATION: Yes Soft to palpation Back/Pelvis: COMMON NORMALS: thoracic and lumbar spine normal to inspection Extremity: COMMON NORMALS: normal to inspection Neuro: COMMON NORMALS: patient oriented x3, moves all extremities, no focal motor deficits and no sensory deficits noted SENSORIUM/ORIENTATION: Yes alert MENINGEAL SIGNS: Yes no meningeal signs Psych: COMMON NORMALS: mental status grossly normal, cooperative and normal affect Skin: COMMON NORMALS: no rashes or lesions noted and turgor normal GENERAL SKIN EXAM: no rashes or lesions noted and turgor normal Course 2 Vital Signs: Vital signs: Vital Signs Temperature 97.7 F 08/01/24 05:54 Pulse Rate 64 08/01/24 09:30 Respiratory Rate 16 08/01/24 05:54 Blood Pressure 149/97 08/01/24 09:30 Pulse Oximetry 93 08/01/24 09:30 Oxygen Delivery Me thod Room Air 08/01/24 05:54 MDM - General Adult Medical Decision Making Mild angioedema seems to be most consistent with the physical exam. She is not in any respiratory distress, though definitely uncomfortable. She is on lisinopril and we discussed the necessity to stop that. She was observed in the ED for some time and had some improvement. She was given return precautions and will follow up with her PCP. She is planning to leave tomorrow for a vacation in [place] and we discussed that she should not go if she is not significantly better. Lab Data 08/01/24 06:22 08/01/24 06:22 Radiology Impressions Soft Tissue Neck X-Ray 08/01/24 06:14 IMPRESSION: No acute findings. Laboratory Results WBC 5.14 10^3/uL (3.29-11.43) 08/01/24 06:22 RBC 4.73 10^6/uL (3.85-5.65) 08/01/24 06:22 Hgb 14.00 g/dL (11.27-16.99) 08/01/24 06:22 Hct 43.4 % (36-47) 08/01/24 06:22 MCV 91.8 fl (85-98) 08/01/24 06:22 MCH 29.6 pg (27-33) 08/01/24 06:22 MCHC 32.3 g/dL (30-55) 08/01/24 06:22 RDW 12.9 % (12.1-15.1) 08/01/24 06:22 Plt Count 184 10^3/cmm (157-399) 08/01/24 06:22 MPV 8.5 fL (7.4-10.4) 08/01/24 06:22 Neut % (Auto) 64.4 % 08/01/24 06:22 Lymph % (Auto) 23.7 % 08/01/24 06:22 Kaufman % (Auto) 6.6 % 08/01/24 06:22 Eos % (Auto) 4.1 % 08/01/24 06:22 Baso % (Auto) 1.0 % 08/01/24 06:22 Neut # (Auto) 3.31 10^3/uL (1.8-7.7) 08/01/24 06:22 Lymph # (Auto) 1.2 10^3/uL (0.8-4.8) 08/01/24 06:22 [place]aufman # (Auto) 0.3 10^3/uL (0.2-0.9) 08/01/24 06:22 Eos # (Auto) 0.2 10^3/uL (0.0-0.8) 08/01/24 06:22 Baso # (Auto) 0.1 10^3/uL (0.0-0.1) 08/01/24 06:22 Nucleated RBC % (auto) 0 % 08/01/24 06:22 Nucleated RBCs # 0.0 /100WBC 08/01/24 06:22 Sodium 137 mmol/L (136-145) 08/01/24 06:22 Potassium 4.0 mmol/L (3.5-5.1) 08/01/24 06:22 Chloride 104 mmol/L (98-107) 08/01/24 06:22 Carbon Dioxide 28 mmol/L (22-29) 08/01/24 06:22 Anion Gap 9.0 (5-19) 08/01/24 06:22 BUN 21 mg/dL (8-23) 08/01/24 06:22 Creatinine 0.8 mg/dL (0.5-0.9) 08/01/24 06:22 GFR Calculation Not Reportable 08/01/24 06:22 Glucose 112 mg/dL (65-115) 08/01/24 06:22 Calculated Osmolality 288 mOsm/kg (285-295) 08/01/24 06:22 Calcium 9.7 mg/dL (8.5-10.5) 08/01/24 06:22 Total Bilirubin 0.5 mg/dL (0.15-1.2) 08/01/24 06:22 AST 15 U/L (0-32) 08/01/24 06:22 ALT 15 U/L (0-33) 08/01/24 06:22 Alkaline Phosphatase 96 U/L (35-105) 08/01/24 06:22 Total Protein 6.0 g/dL (6.6-8.7) L 08/01/24 06:22 Albumin 3.9 g/dL (3.5-5.2) 08/01/24 06:22 Globulin 2.1 g/dL (1.3-4.6) 08/01/24 06:22 Urine Color Yellow (Yellow) 08/01/24 07:50 Urine Appearance Cloudy (CLEAR) A 08/01/24 07:50 Urine pH 5.5 (5-7) 08/01/24 07:50 Ur Specific [place] 1.020 (1.005-1.030) 08/01/24 07:50 Urine Protein Trace (Negative) A 08/01/24 07:50 Urine Glucose (UA) Negative (Normal) 08/01/24 07:50 Urine Ketones Negative (Negative) 08/01/24 07:50 Urine Blood 1+ (Negative) A 08/01/24 07:50 Urine Nitrate Positive (Negative) A 08/01/24 07:50 Urine Bilirubin Negative (Negative) 08/01/24 07:50 Urine Urobilinogen 1.0 mg/dL (Negative) 08/01/24 07:50 Ur Leukocyte Esterase 2+ (Negative) A 08/01/24 07:50 Urine RBC 0-2 /hpf (0-2) 08/01/24 07:50 Urine WBC >100 /hpf (0-5) H 08/01/24 07:50 Ur Squamous Epith Cells 0-5 /hpf (0-5) 08/01/24 07:50 Amorphous Sediment Not Reportable 08/01/24 07:50 Urine Bacteria 4+ /hpf (NONE) H 08/01/24 07:50 Hyaline Casts 2.26 /lpf 08/01/24 07:50 Group A Strep Rapid Negative (Negative) 08/01/24 06:30 All radiology interpretation(s) finalized by discharge Discharge Plan Discharge Patient Disposition: Home Clinical Impression: Angioedema, Acute UTI Condition: Stable Prescriptions: New fosfomycin tromethamine 3 gram packet 1 packet PO Q3D Qty: 1 0RF Discontinued lisinopril-hydrochlorothiazide 10-12.5 mg tablet 1 tab PO DAILY Rx Instructions: TAKE 1 TABLET BY MOUTH EVERY DAY No Action Proctofoam HC 1-1 % foam 1 applic MI QID PRN (Reason: itching) Qty: 10 0RF solifenacin [Vesicare] 10 mg tablet 10 mg PO DAILY Qty: 90 1RF gabapentin 100 mg capsule 100 mg PO BID Qty: 60 1RF diclofenac sodium 3 % gel 1 applic topical BID Qty: 100 0RF tizanidine 2 mg tablet 2 mg PO TID PRN (Reason: muscle spasticity) Qty: 20 0RF nystatin 100,000 unit/gram ointment 1 applic topical BID Qty: 15 1RF albuterol sulfate [Ventolin HFA] 90 mcg/actuation Hfa Aerosol Inhaler 1 puff INHALATION QID PRN (Reason: Shortness Of Breath Or Wheezing) fluticasone propionate [Flonase Allergy Relief] 50 mcg/actuation spray,suspension 1 spray intranasal BID PRN (Reason: allergies) Rx Instructions: administer into each nostril loratadine [Allergy Relief (loratadine)] 10 mg tablet 10 mg PO DAILY PRN (Reason: allergies) Discharge Orders: Discharge ED (Routine); Ordered 08/01/24 Ordered By: Nazia Wheeler Referrals: Kathie Blue DO [Primary Care Provider] - Patient Instructions: Opioid Safety, Pain Management Activity Restrictions/Additional Instructions: DO NOT TAKE ANYMORE LISINOPRIL If you have not had improvement in the throat symptoms by tomorrow morning - return to the ED or see your doctor - DO NOT TRAVEL Take one dose of the Fosfomycin for the UTI. You can save the second dose and take it if symptoms worsen or return. Follow up with your doctor as soon as you return from your trip to discuss blood pressure medications. Coding Level of Care Code ED Strap Folding Machine Operator for Héctor Mitchell
[2024-08-01 09:30] VITALS: BP 149/97; PULSE 64; O2SAT 93
== END 2024-08-01 09:33 | disposition home or self-care (01) ==
PROVIDERS: Emergency Provider Emergency Medicine; PCP Family Medicine
DX: T78.3XXA Angioneurotic edema, initial encounter (principal); N39.0 Urinary tract infection, site not specified; I10 Essential (primary) hypertension; X58.XXXA Exposure to other specified factors, initial encounter
CPT/HCPCS: 70360; 80053; 81001; 85025; 87077; 87081; 87086; 87186; 87880; 96374; 96375; 99284; J1100; J1885

== ENCOUNTER → 2024-11-08 10:10 | Outpatient (BNVA) | payer MEDICARE, OTHER, SELFPAY | PROVIDERS: PCP Family Medicine; Visit Provider Family Medicine | DX: I10 Essential (primary) hypertension (principal) | CPT/HCPCS: 80053; 80061; 82043; 84443 ==

== ENCOUNTER 2024-12-10 11:49 | Outpatient (CLI) | payer MEDICARE, OTHER, SELFPAY ==
--- NOTE | 2024-12-10 11:52 | XR_ITS ---
WS: [email or web address] Exam: XR lumbar spine 2-3V* [id number] Date/Time of Exam: 12/10/2024 11:57 AM Reason For Exam: right flank pain No fracture. Mild disc space narrowing at all levels. Mild spondylosis. Facet arthropathy from L3-S1. DJD of the SI joints. XR/XR lumbar spine 2-3V* [id number] IMPRESSION: 1. Degenerative changes. No fracture or malalignment.
--- NOTE | 2024-12-10 11:52 | XR_ITS ---
WS: [email or web address] Exam: XR thoracic spine 2V [id number] Date/Time of Exam: 12/10/2024 11:57 AM Reason For Exam: right flank pain Comparison 08/06/2012. No acute fracture. There is spondylosis. Paraspinal soft tissues are unremarkable. No significant scoliosis. XR/XR thoracic spine 2V [id number] IMPRESSION: 1. Degenerative change and spondylosis. 2. No fracture or malalignment.
== END 2024-12-10 11:50 | disposition home or self-care (01) ==
LOC: RAD 11:51
PROVIDERS: PCP Family Medicine; Visit Provider Family Medicine
DX: R10.9 Unspecified abdominal pain (principal); M47.894 Other spondylosis, thoracic region; M51.34 Other intervertebral disc degeneration, thoracic region; M51.369 Other intervertebral disc degeneration, lumbar region without mention of lumbar back pain or lower extremity pain; M47.896 Other spondylosis, lumbar region; M47.897 Other spondylosis, lumbosacral region; M46.1 Sacroiliitis, not elsewhere classified
CPT/HCPCS: 72070; 72100

== ENCOUNTER 2025-02-14 12:49 | Outpatient (CLI) | payer MEDICARE, OTHER, SELFPAY ==
--- NOTE | 2025-02-14 12:52 | US_ITS ---
WS: [id number] RENAL ULTRASOUND HISTORY: R FLANK PAIN/NEPHROLITHIASIS COMPARISON: 09/10/2019 TECHNIQUE: 2-D and color Doppler imaging of the kidney submitted. Right kidney: 11.1 cm x 5.7 cm x 4.7 cm. Cortex: 1.4 cm Normal echogenicity with no hydronephrosis or mass. Left kidney: 11.6 cm x 4.9 cm x 4.7 cm. Cortex: 1.8 cm Normal size kidney. No hydronephrosis. Cortical cyst superior pole measures 2.2 x 1.8 x 1.4 cm. Aorta: Normal. Urinary Bladder: Normal distention. US/US renal BI* [id number] IMPRESSION: 1. No renal obstruction or atrophy. 2. Simple cyst LEFT kidney, stable since 09/10/2019.
== END 2025-02-14 12:50 | disposition home or self-care (01) ==
PROVIDERS: PCP Family Medicine; Visit Provider Nurse Practitioner Family
DX: N28.1 Cyst of kidney, acquired (principal)
CPT/HCPCS: 76770

== ENCOUNTER 2025-02-21 13:49 | Emergency (ER) | payer MEDICARE, OTHER, SELFPAY ==
[2025-02-21 13:53] VITALS: BP 112/76; PULSE 79; RESP 18; TEMP 36.4; O2SAT 97; BMI 32.5
[2025-02-21 16:02] VITALS: BP 113/75; PULSE 78; RESP 16; O2SAT 99
--- NOTE | 2025-02-21 16:05 | ED_ITS ---
HPI - Abdominal Pain 2 General: Chief Complaint: Abdominal Pain Stated Complaint: dr bowman, dehydration, n/v, sweating, REYNOLDS, dizzy Time Seen by Provider: 02/21/25 15:54 Source: patient Mode of arrival: ambulatory Limitations: no limitations History of Present Illness: 74-year-old female states over the last week she been having epigastric abdominal pain states that she feels like she may have some reflux she also been having nausea and vomiting states the pain is currently a 6 out of 10 denies any diarrhea denies any fevers denies any worse improving factors. Associated Symptoms: Reports nausea and vomiting; Denies chills, diarrhea, dysuria and fever(s) Related Data Home Medications ?Medication ?Instructions ?Recorded ?Confirmed albuterol sulfate 90 mcg/actuation 1 puff inhalation Q ID PRN 08/01/24 02/07/25 aerosol inhaler (Ventolin HFA) Shortness Of Breath Or Wheezing loratadine 10 mg tablet (Allergy 10 mg PO DAILY PRN al gonzales 08/01/24 02/07/25 Relief (loratadine)) Previous Rx's ?Medication ?Instructions ?Recorded nystatin 100,000 unit/gram topical 1 applic topical BI D #15 grams 04/17/23 ointment tizanidine 2 mg tablet 2 mg PO TID PRN muscle spast icity 05/12/24 #20 tabs diclofenac sodium 3 % topical gel 1 applic topical BID #100 grams 06/07/24 nystatin 100,000 unit/gram topical 1 applic topical BI D #60 grams 11/08/24 powder losartan 100 1 tab PO DAILY #90 tabs 05/2 3/25 mg-hydrochlorothiazide 12.5 mg tablet prednisone 20 mg tablet 40 mg (2 x 20 mg) PO DAILY # 20 tabs 02/07/25 ondansetron 4 mg disintegrating 4 mg PO Q6H PRN nausea and 02/21/25 tablet vomiting #14 tabs pantoprazole 40 mg tablet,delayed 40 mg PO DAILY #60 t abs 02/21/25 release (Protonix) Allergies Allergy/AdvReac Type Severity Reaction Status Date / Time hydroxyprogesterone (From Allergy skin Verified 02/21/25 13:57 Delalutin) irritation/itching at injection site nitrofurantoin (From Allergy ADR-Confusi Verified 02/21/25 13:57 Macrobid) on Review of Systems 2 Const: Denies: fever(s), chills, body aches or change in appetite ENMT: Denies: throat pain or dental pain Card: Denies: chest pain Resp: Denies: dyspnea GI: Reports: abdominal pain, nausea and vomiting; Denies: diarrhea : Denies: dysuria Musc: Denies: neck pain or back pain Skin/Breast: Denies: rash Neuro: Denies: headache(s) PFSH ED 2 PFSH: Medical History MITCHELL (obstructive sleep apnea) Arthralgia of ankle Centromere antibody positive Polyarthralgia Positive TAI (antinuclear antibody) No pertinent past medical history neghx: dm,thyroid,dvt/pe PCP: Dr. Blue Family history of ischemic heart disease and other diseases of the circulatory system Lichen sclerosus Labia minora agglutination History of shingles HTN (hypertension), benign Asthma Surgical History Hx of shoulder surgery (~2018) L shoulder- ligament repair Hx of eye surgery (~05/2021) R eye---lens removal H/O removal of cyst Cyst removal from LEFT AXILLA cyst removal from left hand H/O: hysterectomy (2011) LAVH, OVARIES AND CERVIX SPARED-- WOOD H/O lithotripsy History of breast lump/mass excision left- benign H/O tubal ligation History of cholecystectomy History of tonsillectomy Family History Father Diabetes Heart disease Hypertension Stroke Brother Diabetes Heart disease Hypertension Stroke Mother Heart disease Hypertension Uterine cancer uterus dx at 88 y/o Breast cancer dx at 62 y/o Sister Heart disease Hypertension Colon cancer dx at 52 y/o Social History Smoking and tobacco/nicotine status: never used tobacco/nicotine Physical Exam 2 Const: COMMON NORMALS: no acute distress, patient oriented x3 and healthy appearing HENMT: COMMON NORMALS: normocephalic and atraumatic HEAD & SCALP: n ormocephalic and atraumatic Eye: COMMON NORMALS: conjunctivae normal CONJUNCTIVA: Yes conjunctivae normal Neck/C-Spine: COMMON NORMALS: full ROM and supple Chest: COMMONS NORMALS: normal inspection of the chest Resp: COMMON NORMALS: normal respiratory effort, No retractions, No use of accessory muscles and clear to auscultation bilaterally AUSCULTATION: clear to auscultation bilaterally Cardio: COMMON NORMALS: regular rate, regular rhythm and No murmurs present (Cardio) RATE: regular rate RHYTHM: regular rhythm GI: COMMON NORMALS: Normal to inspection, nondistended, normoactive bowel sounds present, Soft to palpation and no masses PALPATION: Yes Soft to palpation OTHER: epigastric tenderness Extremity: COMMON NORMALS: normal to inspection and full ROM Neuro: COMMON NORMALS: patient oriented x3, moves all extremities and no focal motor deficits Psych: COMMON NORMALS: mental status grossly normal, Normal thought process present and cooperative THOUGHT PROCESS: Normal thought process present Skin: COMMON NORMALS: no rashes or lesions noted and no wounds GENERAL SKIN EXAM: no rashes or lesions noted Course 2 Vital Signs: Vital signs: Vital Signs Temperature 97.5 F L 02/21/25 13:53 Pulse Rate 78 02/21/25 16:02 Respiratory Rate 16 02/21/25 16:41 Blood Pressure 120/74 02/21/25 18:50 Pulse Oximetry 96 02/21/25 17:02 Oxygen Delivery Me thod Room Air 02/21/25 13:53 MDM - Abdominal Pain Medical Decision Making Patient presents here with abdominal pain is likely a gastritis patient is well- appearing here CT scan blood works normal we will start her on her Protonix she has follow-up with PCP return if worsening. Medical Records I reviewed the patient's medical records. Lab Data I reviewed the patient's lab results. 02/21/25 15:50 02/21/25 15:50 Labs/Radiology: Radiology Impressions Chest/Abdomen/Pelvis CT 02/21/25 17:16 IMPRESSION: No acute findings. IMPRESSION: 1. No acute findings. 2. A benign renal cyst or cysts have been detected. No further follow-up imaging is required. COMMENTS: Consistent with the [employer]'s Incidental Findings Committee white paper (J Am Wanda Radiol 2018): Any incidental renal lesion less than 1 cm or classified as too small to characterize, or any incidental cystic renal lesion characterized as simple-appearing, is likely benign. No follow-up imaging is recommended for these lesions per consensus recommendations based on imaging criteria. Laboratory Results WBC 7.24 10^3/uL (3.29-11.43) 02/21/25 15:50 RBC 5.19 10^6/uL (3.85-5.65) 02/21/25 15:50 Hgb 15.30 g/dL (11.27-16.99) 02/21/25 15:50 Hct 47.6 % (36-47) H 02/21/25 15:50 MCV 91.7 fl (85-98) 02/21/25 15:50 MCH 29.5 pg (27-33) 02/21/25 15:50 MCHC 32.1 g/dL (30-55) 02/21/25 15:50 RDW 12.5 % (12.1-15.1) 02/21/25 15:50 Plt Count 223 10^3/cmm (157-399) 02/21/25 15:50 MPV 8.6 fL (7.4-10.4) 02/21/25 15:50 Neut % (Auto) 74.9 % 02/21/25 15:50 Lymph % (Auto) 17.4 % 02/21/25 15:50 [place] % (Auto) 5.1 % 02/21/25 15:50 Eos % (Auto) 1.7 % 02/21/25 15:50 Baso % (Auto) 0.6 % 02/21/25 15:50 Neut # (Auto) 5.43 10^3/uL (1.8-7.7) 02/21/25 15:50 Lymph # (Auto) 1.3 10^3/uL (0.8-4.8) 02/21/25 15:50 [place] # (Auto) 0.4 10^3/uL (0.2-0.9) 02/21/25 15:50 Eos # (Auto) 0.1 10^3/uL (0.0-0.8) 02/21/25 15:50 Baso # (Auto) 0.0 10^3/uL (0.0-0.1) 02/21/25 15:50 Nucleated RBC % (auto) 0 % 02/21/25 15:50 Nucleated RBCs # 0.0 /100WBC 02/21/25 15:50 Sodium 140 mmol/L (136-145) 02/21/25 15:50 Potassium 4.5 mmol/L (3.5-5.1) 02/21/25 15:50 Chloride 102 mmol/L (98-107) 02/21/25 15:50 Carbon Dioxide 25 mmol/L (22-29) 02/21/25 15:50 Anion Gap 17.5 (5-19) 02/21/25 15:50 BUN 23 mg/dL (8-23) 02/21/25 15:50 Creatinine 0.9 mg/dL (0.5-0.9) 02/21/25 15:50 GFR Calculation Not Reportable 02/21/25 15:50 Glucose 95 mg/dL (65-115) 02/21/25 15:50 Calculated Osmolality 293 mOsm/kg (285-295) 02/21/25 15:50 Calcium 10.3 mg/dL (8.5-10.5) 02/21/25 15:50 Total Bilirubin 0.7 mg/dL (0.15-1.2) 02/21/25 15:50 AST 21 U/L (0-32) 02/21/25 15:50 ALT 21 U/L (0-33) 02/21/25 15:50 Alkaline Phosphatase 113 U/L (35-105) H 02/21/25 15:50 Creatine Kinase 72 U/L (26-192) 02/21/25 15:50 Troponin T Baseline < 6 ng/L (0-10) 02/21/25 15:50 Troponin T 120 Minute 6.14 ng/L (0-10) 02/21/25 17:51 Delta Troponin T 0.82889 ABS# (0-10) 02/21/25 17:51 Total Protein 7.2 g/dL (6.6-8.7) 02/21/25 15:50 Albumin 4.2 g/dL (3.5-5.2) 02/21/25 15:50 Globulin 3.0 g/dL (1.3-4.6) 02/21/25 15:50 Lipase 36 U/L (13-60) 02/21/25 15:50 Urine Color Yellow (Yellow) 02/21/25 16:29 Urine Appearance Cloudy (CLEAR) A 02/21/25 16:29 Urine pH 5.5 (5-7) 02/21/25 16:29 Ur Specific [place] 1.019 (1.005-1.030) 02/21/25 16:29 Urine Protein Negative (Negative) 02/21/25 16: Urine Glucose (UA) Negative (Normal) 02/21/25 16: Urine Ketones Trace (Negative) 02/21/25 16: Urine Blood Negative (Negative) 02/21/25 16: Urine Nitrate Positive (Negative) A 02/21/25 16: Urine Bilirubin Negative (Negative) 02/21/25 16: Urine Urobilinogen 1.0 mg/dL (Negative) 02/21/25 16:29 Ur Leukocyte Esterase 2+ (Negative) A 02/21/25 16:29 Urine RBC 0-2 /hpf (0-2) 02/21/25 16:29 Urine WBC >100 /hpf (0-5) H 02/21/25 16:29 Ur Squamous Epith Cells 0-5 /hpf (0-5) 02/21/25 16:29 Amorphous Sediment Not Reportable 02/21/25 16:29 Urine Bacteria 4+ /hpf (NONE) H 02/21/25 16:29 Hyaline Casts 2.46 /lpf 02/21/25 16:29 All radiology interpretation(s) finalized by discharge EKG Data EKG 1: I personally reviewed and interpreted this EKG as follows: EKG interpretation date: 02/21/25 EKG interpretation time: 16:17 Interpretation: nsr hr [address] elevation qrs 75 qtc 398 Discharge Plan Discharge Patient Disposition: Home Clinical Impression: Abdominal pain Condition: Stable Prescriptions: New pantoprazole [Protonix] 40 mg tablet,delayed release (DR/EC) 40 mg PO DAILY Qty: 60 0RF ondansetron 4 mg tablet,disintegrating 4 mg PO Q6H PRN (Reason: nausea and vomiting) Qty: 14 0RF No Action diclofenac sodium 3 % gel 1 applic topical BID Qty: 100 0RF nystatin 100,000 unit/gram powder 1 applic topical BID Qty: 60 5RF prednisone 20 mg tablet 40 mg PO DAILY Qty: 20 0RF Rx Instructions: 40mg (2 tabs) poqd for 4d, then 30mg (1.5tabs) poqd for 4d, then 20mg (1 tab) poqd for 4d, then 10mg (0.5 tab) poqd for 4d tizanidine 2 mg tablet 2 mg PO TID PRN (Reason: muscle spasticity) Qty: 20 0RF nystatin 100,000 unit/gram ointment 1 applic topical BID Qty: 15 1RF losartan-hydrochlorothiazide 100-12.5 mg tablet 1 tab PO DAILY Qty: 90 0RF albuterol sulfate [Ventolin HFA] 90 mcg/actuation Hfa Aerosol Inhaler 1 puff INHALATION QID PRN (Reason: Shortness Of Breath Or Wheezing) loratadine [Allergy Relief (loratadine)] 10 mg tablet 10 mg PO DAILY PRN (Reason: allergies) Discharge Orders: Discharge ED (Routine); Ordered 02/21/25 Ordered By: Rodrigo Morgan Referrals: Kathie Blue DO [Primary Care Provider, Family Practice] - 4-7 days Discharge Diet: Advance as tolerated Discharge Activity: Resume usual activity Patient Instructions: Abdominal Pain (ED) Print Language: Hungarian Coding Level of Care Code ED Pharmacy Picking Technician for Héctor Mitchell
[2025-02-21 16:17] LABS: Basophils % 0.6 %; Eosinophils # 0.1 10^3/uL (0.0-0.8); Eosinophils % 1.7 %; Hematocrit 47.6 % (36-47); Lymphocytes # 1.3 10^3/uL (0.8-4.8); Lymphocytes % 17.4 %; Mean Corpuscular HGB Conc 32.1 g/dL (30-55); Mean Corpuscular Hemoglobin 29.5 pg (27-33); Mean Corpuscular Volume 91.7 fl (85-98); Mean Platelet Volume 8.6 fL (7.4-10.4); Monocytes # 0.4 10^3/uL (0.2-0.9); Monocytes % 5.1 %; Neutrophils # 5.43 10^3/uL (1.8-7.7); Neutrophils % 74.9 %; Nucleated Red Blood Cells % 0 %; Platelet Count 223 10^3/cmm (157-399); Red Blood Count 5.19 10^6/uL (3.85-5.65); Red Cell Distribution Width 12.5 % (12.1-15.1); White Blood Count 7.24 10^3/uL (3.29-11.43)
--- NOTE | 2025-02-21 16:17 | ECG_ITS ---
[email or web address]21 Pat Name: Megan Love Department: Room: Gender: Female Meeting Manager: : 1950 Requested By: Rodrigo Morgan Order Number: [id number] Sierra MD: Yandel Miller M.D. Measurements Intervals [place] Rate: 64 P: 29 [place]: 148 QRS: -12 QRSD: 75 T: 53 QT: 388 QTc: 403 Interpretive Statements SINUS RHYTHM LOW QRS VOLTAGE IN PRECORDIAL LEADS [QRS DEFLECTION < 1.0 mV IN CHEST LEADS] PATTERN CONSISTENT WITH PULMONARY DISEASE INFERIOR MYOCARDIAL INFARCTION , PROBABLY OLD [40+ ms Q WAVE AND/OR ST/T ABNORMALITY IN II/aVF] Compared to ECG 03/20/2022 09:36:33 No significant changes Electronically Signed On 02-22-2025 17:21:11 CDT by Yandel Miller M.D. [email or web address]
[2025-02-21 16:41] VITALS: RESP 16
[2025-02-21] MEDS: sodium chloride 0.9% 1,000 ML 999 ML IV (16:41)
[2025-02-21] MEDS: ondansetron 2 mg/ML SDV 2 mL 4 MG IVP (16:41)
[2025-02-21] MEDS: morphine 4 mg/mL SDV 1 mL IVP (16:41)
[2025-02-21 16:54] LABS: Alanine Aminotransferase 21 U/L (0-33); Albumin Level 4.2 g/dL (3.5-5.2); Alkaline Phosphatase 113 U/L (35-105); Anion Gap 17.5 (5-19); Aspartate Amino Transferase 21 U/L (0-32); Blood Urea Nitrogen 23 mg/dL (8-23); Calcium 10.3 mg/dL (8.5-10.5); Carbon Dioxide 25 mmol/L (22-29); Chloride 102 mmol/L (98-107); Creatine Phosphokinase 72 U/L (26-192); Creatinine Clr Calc Pharmacy 64.4277; Glucose 95 mg/dL (65-115); Lipase 36 U/L (13-60); Osmolality Calculated 293 mOsm/kg (285-295); Potassium 4.5 mmol/L (3.5-5.1); Sodium 140 mmol/L (136-145); Total Bilirubin 0.7 mg/dL (0.15-1.2); Total Protein 7.2 g/dL (6.6-8.7)
[2025-02-21 17:02] VITALS: BP 90/76; O2SAT 96
[2025-02-21 17:02] LABS: Bilirubin Urine Negative (Negative); Blood Urine Negative (Negative); Glucose Urine UA Negative (Normal); Ketones Urine Trace (Negative); Leukocyte Esterase Urine 2+ (Negative); Nitrate Urine Positive (Negative); Protein Urine Negative (Negative); Specific Gravity, Urine 1.019 (1.005-1.030); Urine Appearance Cloudy (CLEAR); Urine Color Yellow (Yellow); pH Urine 5.5 (5-7)
[2025-02-21 17:07] LABS: Add Urine Microscopic? YES; Bacteria Urine 4+ /hpf; Hyaline Casts Urine 2.46 /lpf; RBC Urine 0-2 /hpf (0-2); Squamous Epithelial Cell Urine 0-5 /hpf (0-5); WBC Urine >100 /hpf (0-5)
[2025-02-21 17:16] LABS: Add Urine Culture? Yes
--- NOTE | 2025-02-21 17:16 | CTR_ITS ---
PROCEDURE INFORMATION: Exam: CTA Chest With Contrast Exam date and time: 02/21/2025 5:23 PM Age: 74 years old Clinical indication: Abdominal pain; Epigastric; On breathing; Prior surgery; Surgery date: 6+ months; Surgery type: Gb, partial hysterectomy, tubal ligation; Additional info: Cp TECHNIQUE: Imaging protocol: Computed tomographic angiography of the chest with contrast. Exam focused on the arteries. 3D rendering (Not supervised by radiologist): MIP and/or 3D reconstructed images were created by the technologist. Radiation optimization: All CT scans at this facility use at least one of these dose optimization techniques: automated exposure control; mA and/or kV adjustment per patient size (includes targeted exams where dose is matched to clinical indication); or iterative reconstruction. Contrast material: OMNIPAQUE 350; Contrast volume: 100 ml; Contrast route: INTRAVENOUS (IV); COMPARISON: CT angio chest PE protcl [id number] 01/24/2021 2:25 PM RADIATION DOSE METRICS: Total DLP (mGy-cm): 1320.43 FINDINGS: Pulmonary arteries: Normal. No pulmonary emboli. Aorta: Unremarkable. No aortic aneurysm. No aortic dissection. Lungs: Unremarkable. No consolidation. No masses. Pleural spaces: Unremarkable. No pneumothorax. No pleural effusion. Heart: Unremarkable. No cardiomegaly. No pericardial effusion. Lymph nodes: Unremarkable. No enlarged lymph nodes. Bones/joints: Unremarkable. No acute fracture. Soft tissues: Unremarkable. PROCEDURE INFORMATION: Exam: CT Abdomen And Pelvis With Contrast Exam date and time: 02/21/2025 5:23 PM Age: 74 years old Clinical indication: Abdominal pain; Epigastric; On breathing; Prior surgery; Surgery date: 6+ months; Surgery type: Gb, partial hysterectomy, tubal ligation; Additional info: Cp TECHNIQUE: Imaging protocol: Computed tomography of the abdomen and pelvis with contrast. Radiation optimization: All CT scans at this facility use at least one of these dose optimization techniques: automated exposure control; mA and/or kV adjustment per patient size (includes targeted exams where dose is matched to clinical indication); or iterative reconstruction. Contrast material: OMNIPAQUE 350; Contrast volume: 100 ml; Contrast route: INTRAVENOUS (IV); COMPARISON: CT abdomen pelvis w con* [id number] 01/21/2024 8:43 AM RADIATION DOSE METRICS: Total DLP (mGy-cm): 1320.43 FINDINGS: Lungs: Lung bases are clear. No pleural effusion. Liver: Normal. No mass. Gallbladder and biliary ducts: The gallbladder has been resected. Pancreas: Normal. No ductal dilation. Spleen: Normal. No splenomegaly. Adrenal glands: Normal. No mass. Kidneys and ureters: 2 cm cyst involves the left kidney. Stomach and bowel: Unremarkable. No obstruction. No mucosal thickening. Appendix: No evidence of appendicitis. Intraperitoneal space: Unremarkable. No free air. No significant fluid collection. Vasculature: Unremarkable. No abdominal aortic aneurysm. Lymph nodes: Unremarkable. No enlarged lymph nodes. Urinary bladder: Unremarkable as visualized. Reproductive: Unremarkable as visualized. Bones/joints: Unremarkable. No acute fracture. Soft tissues: Unremarkable. CT/CT angio chest w abd pel w con IMPRESSION: No acute findings. IMPRESSION: 1. No acute findings. 2. A benign renal cyst or cysts have been detected. No further follow-up imaging is required. COMMENTS: Consistent with the [place] [employer]'s Incidental Findings Committee white paper (J Am Wanda Radiol 2018): Any incidental renal lesion less than 1 cm or classified as too small to characterize, or any incidental cystic renal lesion characterized as simple-appearing, is likely benign. No follow-up imaging is recommended for these lesions per consensus recommendations based on imaging criteria.
[2025-02-21] MEDS: iohexol 350 mg/mL 500 mL Btl (per mL) IV (17:27)
[2025-02-21 18:11] LABS: Troponin(5th) Baseline < 6 ng/L (0-10)
[2025-02-21] MEDS: cefTRIAXone 1,000 mg SDV 1000 MG IVP (18:29)
[2025-02-21 18:34] LABS: Troponin 5 2HR 6.14 ng/L (0-10); Troponin 5 2HR Delta 0.14001 ABS# (0-10)
[2025-02-21 18:50] VITALS: BP 120/74
== END 2025-02-21 19:06 | disposition home or self-care (01) ==
PROVIDERS: Emergency Provider Emergency Medicine; PCP Family Medicine
DX: R10.9 Unspecified abdominal pain (principal); I10 Essential (primary) hypertension
CPT/HCPCS: 36415; 71275; 74177; 80053; 81001; 82550; 83690; 84484; 85025; 87077; 87086; 87186; 93005; 96374; 96375; 99285; J0696; J2270; J2405; J7030

== ENCOUNTER → 2025-04-25 09:49 | Outpatient (BNVA) | payer MEDICARE, OTHER, SELFPAY | PROVIDERS: PCP Family Medicine; Visit Provider Emergency Medicine | DX: J06.9 Acute upper respiratory infection, unspecified (principal) | CPT/HCPCS: 87426 ==

== ENCOUNTER → 2025-05-17 09:17 | Outpatient (BNVA) | payer MEDICARE, OTHER, SELFPAY | PROVIDERS: PCP Family Medicine; Visit Provider Nurse Practitioner Family | DX: S40.911A Unspecified superficial injury of right shoulder, initial encounter (principal); X58.XXXA Exposure to other specified factors, initial encounter; L72.0 Epidermal cyst; L73.8 Other specified follicular disorders; B35.1 Tinea unguium; D23.71 Other benign neoplasm of skin of right lower limb, including hip; L82.1 Other seborrheic keratosis; D22.5 Melanocytic nevi of trunk | CPT/HCPCS: 99213 ==

== ENCOUNTER → 2025-06-13 11:27 | Outpatient (BNVA) | payer MEDICARE, OTHER, SELFPAY | PROVIDERS: PCP Family Medicine; Visit Provider Family Medicine | DX: E53.8 Deficiency of other specified B group vitamins (principal); G62.9 Polyneuropathy, unspecified | CPT/HCPCS: 82607 ==

== ENCOUNTER → 2025-08-15 10:07 | Outpatient (BNVA) | payer MEDICARE, OTHER, SELFPAY | PROVIDERS: PCP Family Medicine; Visit Provider Family Medicine | DX: R82.90 Unspecified abnormal findings in urine (principal); E53.8 Deficiency of other specified B group vitamins | CPT/HCPCS: 81000; 82607; 87086 ==

== ENCOUNTER 2025-08-23 10:22 | Outpatient (CLI) | payer MEDICARE, OTHER, SELFPAY ==
--- NOTE | 2025-08-23 10:30 | MR_ITS ---
WS: [id number] MRI HEAD WITH CONTRAST WITH ATTENTION TO THE INTERNAL AUDITORY CANALS TECHNIQUE: Sagittal T1, T2 axial, T2 axial flair, axial susceptibility weighted imaging, axial diffusion weighted images, and coronal T2 images were obtained. Pre and post T1 axial and post T1 coronal images. ADC and FSPGR images. Post gadolinium images with attention to the internal auditory canals. Axial fiesta imaging. CLINICAL INFORMATION: BILATERAL HEARING LOSS, SENSORINEURAL COMPARISON: 2013 FINDINGS: Proximal 7th and eighth cranial nerves are normal in appearance. Normal trigeminal nerve root entry zones. No evidence of enhancing IAC or CP angle mass. Normal optic chiasm and pituitary infundibulum. No abnormal intracranial enhancement. Normal dural venous sinuses. No evidence of restricted diffusion to suggest acute ischemia. Minimal small vessel changes. No significant parenchymal volume loss. Normal posterior fossa. Normal vascular flow voids at the skull base. No extra-axial fluid collections. No evidence of mass or mass effect. Paranasal sinuses and mastoid air cells are well aerated. No hemosiderin on susceptibility-weighted images. MR/MR iac's wo/w con* [id number] IMPRESSION: 1. Proximal seventh 8th cranial nerves are normal in appearance. 2. No evidence of enhancing IAC or CP angle mass. 3. No hemosiderin. 4. Minimal small vessel changes. No significant parenchymal volume loss. 5. Paranasal sinuses and mastoid air cells are well aerated. 6. No abnormal gadolinium enhancement.
[2025-08-23] MEDS: gadobenate dimeglumine 20 mL vial IV (12:04)
== END 2025-08-23 10:23 | disposition home or self-care (01) ==
LOC: RAD 10:24
PROVIDERS: PCP Family Medicine; Visit Provider Nurse Practitioner Family
DX: J34.89 Other specified disorders of nose and nasal sinuses (principal); R90.89 Other abnormal findings on diagnostic imaging of central nervous system
CPT/HCPCS: 70553